=== PATIENT | female | born 1940 | race Caucasian/White ===

== ENCOUNTER → 2016-10-21 | Outpatient (CLI) | payer OTHER ==
[~2016-10-21] MED LIST: AMOX875T PO; ASPEC81 PO; ASPI-589 PO; ATOR-24 PO; CHOL100027 PO; CITA40TA4 PO; DIGO0.2576 PO; LEVO88TA3 PO; LNX25 PO; LORA-741 PO; LPT40 PO; LSN20 PO; LSX40 PO; LVQ750 PO; LXP/20 PO; METO-551 PO; METO100T14 PO; POTA-327 PO; POTA20TA13 PO; POTA20TA16 PO; PROB1CAP6; SACC250C3 PO; SULF800T23 PO; TOLT1CAP3 PO; WARF-246 PO; WARF-285 PO; WARF4TAB8 PO
[2016-10-21 17:48] LABS: INR 1.8 (0.9-1.1); PROTHROMBIN TIME (PATIENT) 19.4 SECONDS (9.0-12.0)
[2016-10-21 17:57] LABS: THYROID STIMULATING HORMONE 0.797 uIu/ml (0.300-4.500)
[2016-10-21 18:07] LABS: BASO % 0.3 %; BASO ABS # 0.02 K/uL (0-0.2); COMPLETE YES; EOS % 2.5 %; HEMATOCRIT 43.5 % (37-47); IG% 0.3 %; LYMPH % 17.2 %; LYMPH ABS # 1.23 K/uL (1.2-3.4); MEAN CELL VOLUME 96.7 fL (80-100); MEAN CORPUSCULAR HEMOGLOBIN 32.7 pg (25-34); MEAN CORPUSCULAR HGB CONC 33.8 g/dl (32-36); MEAN PLATELET VOLUME 10.8 fL (7.4-10.4); MONO % 6.6 %; NEUT % 73.1 %; PLATELET COUNT 148 K/uL (130-400); WHITE BLOOD COUNT 7.16 K/uL (4.8-10.8)
== END | disposition home or self-care (01) ==
LOC: C.LABMFLN 12:11
PROVIDERS: ATTEND Family Medicine
DX: I48.91 Unspecified atrial fibrillation (principal); I10 Essential (primary) hypertension; E03.9 Hypothyroidism, unspecified; E78.5 Hyperlipidemia, unspecified; K92.1 Melena

== ENCOUNTER → 2016-10-24 | Outpatient (CLI) | payer OTHER ==
[2016-10-24 18:50] LABS: URINE APPEARANCE CLEAR (CLEAR); URINE BILIRUBIN NEG (NEG); URINE COLOR YELLOW; URINE NITRITE NEG (NEG); URINE SPECIFIC GRAVITY 1.006 (1.000-1.030); UROBILINOGEN NEG (NEG)
[2016-10-24 18:55] LABS: MANUAL MICROSCOPIC REQUIRED? NO; REVIEW REQ? NO
== END | disposition home or self-care (01) ==
LOC: C.LABMFLN 11:12
PROVIDERS: ATTEND Family Medicine
DX: N39.0 Urinary tract infection, site not specified (principal)

== ENCOUNTER → 2016-11-25 | Outpatient (CLI) | payer OTHER ==
[~2016-11-25] MED LIST changes: +DOXY100C76 PO
[2016-11-25 13:16] LABS: BASO % 0.6 %; BASO ABS # 0.04 K/uL (0-0.2); COMPLETE YES; EOS % 4.7 %; IG% 0.3 %; LYMPH ABS # 1.97 K/uL (1.2-3.4); MEAN CELL VOLUME 96.6 fL (80-100); MEAN CORPUSCULAR HEMOGLOBIN 32.8 pg (25-34); MEAN PLATELET VOLUME 10.8 fL (7.4-10.4); MONO % 8.1 %; NEUT % 56.3 %; PLATELET COUNT 169 K/uL (130-400); RED BLOOD COUNT 4.66 M/uL (4.2-5.4); WHITE BLOOD COUNT 6.57 K/uL (4.8-10.8)
[2016-11-25 13:17] LABS: BLOOD UREA NITROGEN 23 mg/dl (7-18); BUN/CREATININE RATIO 17.5 (10-20); CALCIUM 9.2 mg/dl (8.5-10.1); CARBON DIOXIDE 29 mmol/L (21-32); CHLORIDE 104 mmol/L (98-107); GLUCOSE 102 mg/dl (70-99); MAGNESIUM 2.2 mg/dl (1.8-2.4); POTASSIUM 3.8 mmol/L (3.5-5.1); SODIUM 142 mmol/L (136-145)
== END | disposition home or self-care (01) ==
LOC: C.LABMFLN 11:59
PROVIDERS: ATTEND Family Medicine
DX: D68.59 Other primary thrombophilia (principal)

== ENCOUNTER 2017-02-24 12:36 | Inpatient (IN) | payer OTHER ==
[~2017-02-24] VITALS: Ht 165.1 cm; Wt 105.5 kg
[~2017-02-24 12:36] MED LIST changes: -AMOX875T PO; -ASPI-589 PO; -ATOR-24 PO; -CHOL100027 PO; -DOXY100C76 PO; -LNX25 PO; -LVQ750 PO; -LXP/20 PO; -METO-551 PO; -POTA20TA13 PO; -POTA20TA16 PO; -PROB1CAP6; -SACC250C3 PO; -SULF800T23 PO; -WARF-285 PO; -WARF4TAB8 PO
[2017-02-24] MEDS ORDERED: METO-551 PO (13:49)
[2017-02-24] MEDS ORDERED: CHOL100027 PO (13:49)
[2017-02-24] MEDS ORDERED: LNX25 PO (13:49)
[2017-02-24] MEDS ORDERED: POTA20TA13 PO (13:49)
[2017-02-24 14:14] LABS: BASO % 0.1 %; BASO ABS # 0.01 K/uL (0-0.2); COMPLETE YES; EOS % 0.6 %; HEMATOCRIT 32.9 % (37-47); IG% 0.4 %; LYMPH % 11.2 %; LYMPH ABS # 1.25 K/uL (1.2-3.4); MEAN CELL VOLUME 97.1 fL (80-100); MEAN CORPUSCULAR HEMOGLOBIN 30.7 pg (25-34); MEAN CORPUSCULAR HGB CONC 31.6 g/dl (32-36); MEAN PLATELET VOLUME 8.5 fL (7.4-10.4); MONO % 6.6 %; NEUT % 81.1 %; PLATELET COUNT 315 K/uL (130-400); RED BLOOD COUNT 3.39 M/uL (4.2-5.4); WHITE BLOOD COUNT 11.12 K/uL (4.8-10.8)
[2017-02-24] MEDS ORDERED: AMPICILLIN/SULBACTAM SOD INJ 3,000 MG in SODIUM CHLORIDE 0.9% 100ML 100 ML IV ONE (14:15)
[2017-02-24 14:32] LABS: BUN/CREATININE RATIO 11.6 (10-20); CALCIUM 8.5 mg/dl (8.5-10.1); CREATININE 1.1 mg/dl (0.60-1.20); POTASSIUM 4.4 mmol/L (3.5-5.1)
[2017-02-24 14:48] LABS: INR 2.7 (0.9-1.1); PARTIAL THROMBOPLASTIN RATIO 1.7; PROTHROMBIN TIME (PATIENT) 30.3 SECONDS (9.0-12.0)
--- NOTE | 2017-02-24 16:16 | Surgery Consultation ---
Consultation Date of Consultation: Feb 24, 2017. Attending Physician: History of Present Illness patient is a 76 years old female who presents with one day history of redness on right leg, pt had lovenox injection on abdominal wall by her 4 weeks ago, she develops hemotoma and later she got abdominal wall infection, pt had abdominal wall infection I/D at [facility] 4 weeks ago, pt was putted on wound vac. pt had pacemaker insertion 2 weeks ago, pt denies fever, no chills, pt denies diarrhea, Family History Cancer Diabetes mellitus Heart disease Hypertension Social History Smoking Status: Never Smoker Smokeless Tobacco Use: No Alcohol Use: occasionally Drug Use: none Marital Status: Housing Status: lives with family Occupation Status: retired Allergies Coded Allergies: Oxytetracycline (Verified Allergy, Intermediate, "felt like a big ball in my stomach", 02/24/17) Polymyxin B (Verified Allergy, Intermediate, "felt like a big ball in my stomach", 02/24/17) Home Medications Scheduled Aspirin (Aspirin EC Low Dose), 81 MG PO QAM Atorvastatin (Atorvastatin Calcium), 80 MG PO QAM Cholecalciferol (Vitamin D 1000 Unit), 1,000 INTER.UNIT PO DAILY Citalopram (Citalopram Hydrobromide), 20 MG PO DAILY Digoxin (Digoxin), 1 TAB PO DAILY Levothyroxine Sodium (Levothyroxine Sodium), 88 MCG PO DAILY Lisinopril (Lisinopril), 20 MG PO DAILY Metoprolol Tartrate (Lopressor), 50 MG PO BID Potassium Chloride Microencaps (Potassium Chloride Er), 1 TAB PO DAILY Tolterodine Tartrate (Tolterodine Tartrate ER), 4 MG PO DAILY Warfarin Sodium (Warfarin Sodium), 2.5-5 MG PO daily as directed Scheduled PRN Lorazepam (Ativan), 0.5 MG PO TID PRN for as needed Review of Systems Constitutional: No fever, No chills, No sweats, No weight loss, No weakness, No fatigue, No problem reported Eyes: No worsening of vision, No eye pain, No redness, No discharge, No diplopia, No problem reported ENT: No hearing loss, No unusual epistaxis, No nasal symptoms, No sore throat, No tinnitus, No dental problems, No trouble swallowing, No problem reported Respiratory: + problem reported (PE history), No cough, No sputum, No wheezing , No shortness of breath, No dyspnea on exertion, No dyspnea at rest, No hemoptysis Cardiovascular: + problem reported (pacemaker insertion 2 weeks ago, BCEA), No chest pain, No orthopnea, No PND, No edema, No claudication, No palpitations Abdomen: No pain, No nausea, No vomiting, No diarrhea, No constipation, No GI bleeding, No problem reported Genitourinary - Female: No dysuria, No urinary frequency, No urinary urgency, No urinary incontinence, No urinary retention, No hematuria, No dysmenorrhea, No menorrhagia, No metrorrhagia, No rash, No vaginal bleeding, No vaginal discharge, No vaginal itching, No vulvodynia, No , No problem reported Neurologic: No memory loss, No paralysis, No weakness, No numbness/tingling, No vertigo, No balance problems, No problem reported Psychiatric: No depression symptoms, No anhedonism, No anxiety, No insomnia, No substance abuse, No problem reported Endocrine: No fatigue, No excessive thirst, No excessive urination, No problem reported Hematologic / Lymphatic: + clotting problems (DVT on left leg, and PE) Physical Exam Date Time Temp Pulse Resp B/P (MAP) Pulse Ox O2 Delivery O2 Flow Rate FiO2 02/24/17 15:09 86 20 146/82 100 Room Air 02/24/17 13:19 70 20 97/63 93 Room Air 02/24/17 13:06 67 18 108/52 92 Room Air 02/24/17 12:57 37.3 78 16 96/62 94 Room Air 02/24/17 12:53 75 General Appearance: WD/WN, no apparent distress Head: normocephalic Eyes: normal inspection ENT: normal ENT inspection Neck: supple, no JVD Respiratory/Chest: chest non-tender, lungs clear, normal breath sounds Cardiovascular: regular rate, rhythm, no edema, no JVD Abdomen/GI: normal bowel sounds, non tender, soft (one wound vac on right side abdominal wall, size [id number], the wound edage is clear, no redness, some redness on right upper and lower leg, posterior, no tenderness, no swelling on bilt legs, ) Extremities/Musculoskelatal: no calf tenderness, normal capillary refill, no pedal edema, normal range of motion (some redness on upper and lower right leg, posterior, ) Neurologic/Psych: no motor/sensory deficits, alert, normal mood/affect Skin: no rash (see extremities exam) Laboratory Results Last 24 Hours Test 02/24/17 14:05 White Blood Count 11.12 K/uL Red Blood Count 3.39 M/uL Hemoglobin 10.4 g/dL Hematocrit 32.9 % Mean Corpuscular Volume 97.1 fL Mean Corpuscular Hemoglobin 30.7 pg Mean Corpuscular Hemoglobin Concent 31.6 g/dl Platelet Count 315 K/uL Mean Platelet Volume 8.5 fL Neutrophils (%) (Auto) 81.1 % Lymphocytes (%) (Auto) 11.2 % Monocytes (%) (Auto) 6.6 % Eosinophils (%) (Auto) 0.6 % Basophils (%) (Auto) 0.1 % Neutrophils # (Auto) 9.01 K/uL Lymphocytes # (Auto) 1.25 K/uL Monocytes # (Auto) 0.73 K/uL Eosinophils # (Auto) 0.07 K/uL Basophils # (Auto) 0.01 K/uL RDW Standard Deviation 62.0 fL RDW Coefficient of Variation 17.5 % Immature Granulocyte % (Auto) 0.4 % Immature Granulocyte # (Auto) 0.05 K/uL Prothrombin Time 30.3 SECONDS Prothromb Time International Ratio 2.7 Activated Partial Thromboplast Time 43.6 SECONDS Partial Thromboplastin Ratio 1.7 Sodium Level 135 mmol/L Potassium Level 4.4 mmol/L Chloride Level 102 mmol/L Carbon Dioxide Level 28 mmol/L Anion Gap 5.0 mmol/L Blood Urea Nitrogen 13 mg/dl Creatinine 1.10 mg/dl Est Creatinine Clear Calc Drug Dose 52.5 ml/min Estimated GFR () 56.5 Estimated GFR (Non- 48.7 BUN/Creatinine Ratio 11.6 Random Glucose 94 mg/dl Calcium Level 8.5 mg/dl Assessment & Plan IMP: cellulitis on right leg chronic abdominal wall wound, patient is a 76 years old female who presents with one day history of redness on right leg, pt had lovenox injection on abdominal wall by her 4 weeks ago, she develops hemotoma and later she got abdominal wall infection, pt had abdominal wall infection I/D at [facility] 4 weeks ago, pt was putted on wound vac. pt had pacemaker insertion 2 weeks ago, pt denies fever, no chills, pt denies diarrhea, I agree with hospitalist admit pt to hospital, no need I/D the wound now, IV antibiotic, U/S bilt to R/O DVT, repeat labs in AM. I D/W pt and her about the treatment plan, they agree with the plan, I answered all questions. Will F/u Thanks,
--- NOTE | 2017-02-24 17:04 | EMERGENCY ROOM VISIT NOTE ---
History Report prepared by [place]: Gladis Willams Under the Supervision of: Dr. Raffy Sneed D.O. First contact with patient: 13:59 Chief Complaint: WOUND INFECTION Stated Complaint: WOUND Nursing Triage Summary: Patient with wound vac right lower abdomen area that is reddened around the wound vac dressing with wound vac making a hissing noise per family. Home health nursing typically does the wound vac changes but the family called physician today to report redness around the area and family was instructed to call EMS. Area is currently reddened approximately alf down the thigh. Patient states she really has no pain "just a soreness" rating the the soreness 4/10. Wound vac was placed due to a surgery to remove a hematoma from Lovenox injections for afib. History of Present Illness The patient is a 76 year old female who presents to the Emergency Room with complaints of right leg erythema starting today. The patient had a hematoma removal from the skin on the abdomen and a wound vac was placed. The dressing is changed 3 times a week by the home health nurse. As per family, the patient started having right leg erythema today. She was referred to the Emergency Room by her PCP. As per family, the patient also has some erythema around the wound vac site but it is unchanged. She currently rates a pain intensity of 4/10. Yesterday, the patient had a temperature of 100.2 degrees Fahrenheit. As per family, the patient has been complaining of nausea. She denies vomiting. She is not on any antibiotics. Source of History: patient Onset: today Position: leg (right) Symptom Intensity: 4/10 Quality: other (erythema) Associated Symptoms: + nausea, No vomiting Review of Systems See HPI for pertinent positives & negatives. A total of 10 systems reviewed and were otherwise negative. Past Medical & Surgical Medical Problems: (1) Atrial Fibrillation (2) Benign Hypertension (3) Carotid Artery Occlusion W O Cerebral Infarction (4) Hyperlipidemia Nec/Nos (5) Hypothyroidism Nos Family History Cancer Diabetes mellitus Heart disease Hypertension Social History Smoking Status: Never Smoker Marital Status: Housing Status: lives with family Occupation Status: retired Current/Historical Medications Scheduled Aspirin (Aspirin EC Low Dose), 81 MG PO QAM Atorvastatin (Atorvastatin Calcium), 80 MG PO QAM Cholecalciferol (Vitamin D 1000 Unit), 1,000 INTER.UNIT PO DAILY Citalopram (Citalopram Hydrobromide), 20 MG PO DAILY Digoxin (Digoxin), 1 TAB PO DAILY Levothyroxine Sodium (Levothyroxine Sodium), 88 MCG PO DAILY Lisinopril (Lisinopril), 20 MG PO DAILY Metoprolol Tartrate (Lopressor), 50 MG PO BID Potassium Chloride Microencaps (Potassium Chloride Er), 1 TAB PO DAILY Tolterodine Tartrate (Tolterodine Tartrate ER), 4 MG PO DAILY Warfarin Sodium (Warfarin Sodium), 2.5-5 MG PO daily as directed Scheduled PRN Lorazepam (Ativan), 0.5 MG PO TID PRN for as needed Allergies Coded Allergies: Oxytetracycline (Verified Allergy, Intermediate, "felt like a big ball in my stomach", 02/24/17) Polymyxin B (Verified Allergy, Intermediate, "felt like a big ball in my stomach", 02/24/17) Physical Exam Vital Signs Date Time Temp Pulse Resp B/P (MAP) Pulse Ox O2 Delivery O2 Flow Rate FiO2 02/24/17 16:40 97 18 111/94 100 Room Air 02/24/17 15:09 86 20 146/82 100 Room Air 02/24/17 13:19 70 20 97/63 93 Room Air 02/24/17 13:06 67 18 108/52 92 Room Air 02/24/17 12:57 37.3 78 16 96/62 94 Room Air 02/24/17 12:53 75 Physical Exam CONSTITUTIONAL/VITAL SIGNS: Reviewed / noted above. GENERAL: Non-toxic in appearance. INTEGUMENTARY: Warm, dry. There is increased warmth and erythema extending from the lower abdominal wound border into the right hip area extending into the right lateral thigh and right lateral calf. HEAD: Normocephalic. EYES: without scleral icterus or trauma. ENT/OROPHARYNX: clear and moist. LYMPHADENOPATHY/NECK: Is supple without lymphadenopathy or meningismus. RESPIRATORY: Lungs clear and equal. CARDIOVASCULAR: Regular rate and rhythm. GI/ABDOMEN: Soft and nontender. No organomegaly or pulsatile mass. No rebound or guarding. Normal bowel sounds. Large wound vac on the right lower abdominal region. EXTREMITIES: Warm and well perfused. BACK: No CVA tenderness. NEUROLOGICAL: Intact without focal deficits. PSYCHIATRIC: normal affect. MUSCULOSKELETAL: Normally developed with good muscle tone. Medical Decision & Procedures Laboratory Results 02/24/17 14:05 Red Blood Count 3.39, Mean Corpuscular Volume 97.1, Mean Corpuscular Hemoglobin 30.7, Mean Corpuscular Hemoglobin Concent 31.6, Mean Platelet Volume 8.5, Neutrophils (%) (Auto) 81.1, Lymphocytes (%) (Auto) 11.2, Monocytes (%) (Auto) 6.6, Eosinophils (%) (Auto) 0.6, Basophils (%) (Auto) 0.1, Neutrophils # (Auto) 9.01, Lymphocytes # (Auto) 1.25, Monocytes # (Auto) 0.73, Eosinophils # (Auto) 0.07, Basophils # (Auto) 0.01 02/24/17 14:05 Test 02/24/17 14:05 White Blood Count 11.12 K/uL (4.8-10.8) Red Blood Count 3.39 M/uL (4.2-5.4) Hemoglobin 10.4 g/dL (12.0-16.0) Hematocrit 32.9 % (37-47) Mean Corpuscular Volume 97.1 fL (80-100) Mean Corpuscular Hemoglobin 30.7 pg (25-34) Mean Corpuscular Hemoglobin Concent 31.6 g/dl (32-36) Platelet Count 315 K/uL (130-400) Mean Platelet Volume 8.5 fL (7.4-10.4) Neutrophils (%) (Auto) 81.1 % Lymphocytes (%) (Auto) 11.2 % Monocytes (%) (Auto) 6.6 % Eosinophils (%) (Auto) 0.6 % Basophils (%) (Auto) 0.1 % Neutrophils # (Auto) 9.01 K/uL (1.4-6.5) Lymphocytes # (Auto) 1.25 K/uL (1.2-3.4) Monocytes # (Auto) 0.73 K/uL (0.11-0.59) Eosinophils # (Auto) 0.07 K/uL (0-0.5) Basophils # (Auto) 0.01 K/uL (0-0.2) RDW Standard Deviation 62.0 fL (36.4-46.3) RDW Coefficient of Variation 17.5 % (11.5-14.5) Immature Granulocyte % (Auto) 0.4 % Immature Granulocyte # (Auto) 0.05 K/uL (0.00-0.02) Prothrombin Time 30.3 SECONDS (9.0-12.0) Prothromb Time International Ratio 2.7 (0.9-1.1) Activated Partial Thromboplast Time 43.6 SECONDS (21.0-31.0) Partial Thromboplastin Ratio 1.7 Anion Gap 5.0 mmol/L (3-11) Est Creatinine Clear Calc Drug Dose 52.5 ml/min Estimated GFR () 56.5 Estimated GFR (Non- 48.7 BUN/Creatinine Ratio 11.6 (10-20) Calcium Level 8.5 mg/dl (8.5-10.1) Laboratory results as stated above per my review. Medications Administered Medications (Trade) Dose Ordered Sig/Mariaelena Route Start Time Stop Time Status Last Admin Dose Admin Ampicillin Sodium/ Sulbactam Sodium 3000 mg/Sodium Chloride 108 ml @ 200 mls/hr ONE ONCE IV 02/24/17 14:15 02/24/17 14:47 DC 02/24/17 14:47 200 MLS/HR ED Course 1359: Previous medical records were reviewed. The patient was evaluated in room A12B. A complete history and physical examination was performed. 1415: Ampicillin Sodium/Sulfabactam Sodium 3000 mg/Sodium Chloride 108 ml @ 200 mls/hr IV 1509: I discussed the patient's case with Dr. Reynoso, from [facility]. 1513: On reevaluation, the patient is resting comfortably. I discussed the results and findings with the patient and her family. They verbalized agreement of the treatment plan. The patient will be evaluated for further management and care. 1515: I discussed the patient's case with Dr. Montanez, general surgeon with [facility]. Medical Decision Medication Reconciliation: I attest that I have personally reviewed the patient' s current medication list. Blood pressure Screening: Patient was found to have normal blood pressure on screening and does not require follow-up. Differential diagnosis: Etiologies such as cellulitis, abscess, MRSA infection, DVT, necrotizing fasciitis, dermatitis, drug eruption, as well as others were entertained.. This is a 76-year-old female who presents to the ED with a chief complaint of low-grade fevers over the past couple of days as well as some redness in her right thigh. The patient had a large right lower abdominal hematoma that was evacuated and a wound VAC was placed by [facility] previously. The patient has not been on antibiotics recently. She has been getting wound care by home health nursing. The home health nurse today felt the redness was new. She was sent in for evaluation. The patient has a reddened area just beginning in the lateral aspect of the abdominal wound and extending into the right lateral thigh and hip area and extends down into the right lateral knee region as well. This is warm compared to surrounding tissues and with the patient's history of low-grade fevers of less than 101 this is concerning for infection. The patient was started on Unasyn IV. She was evaluated by general surgery who does not feel any debridement is necessary. She was evaluated by the medicine service and will be admitted for further evaluation and care. Consults Time Called: 1505 Consulting Physician: Dr. Reynoso, from [facility] Returned Call: 1502 I discussed the patient's case with Dr. Reynoso, from [facility]. Additional Consults: Time Called: 1513 Consulted Physician: Dr. Montanez, general surgeon with [facility] Returned Call: 1513 Additional Comments: I discussed the patient's case with Dr. Montanez, general surgeon with [facility]. Impression Primary Impression: Cellulitis of right leg Additional Impression: Cellulitis of right thigh Scribe Attestation The scribe's documentation has been prepared under my direction and personally reviewed by me in its entirety. I confirm that the note above accurately reflects all work, treatment, procedures, and medical decision making performed by me. Departure Information Dispostion Being Evaluated By Hospitalist Referrals Jeremie Parmar M.D. (PCP) Patient Instructions My [facility] Problem Qualifiers
[2017-02-24] MEDS ORDERED: ALUMINUM/MAGNESIUM/SIMETH (MAALOX MAX) 30 ML UDC PO PRN (17:15)
[2017-02-24] MEDS ORDERED: MAGNESIUM HYDROXIDE SUSP 30 ML UDC PO PRN (17:15)
[2017-02-24] MEDS ORDERED: ZOLPIDEM TARTRATE 5 MG TAB PO PRN (17:15)
[2017-02-24] MEDS ORDERED: POLYETHYLENE (MIRALAX) 17 GM PACK PO PRN (17:15)
[2017-02-24] MEDS ORDERED: ONDANSETRON INJ 2 MG/ML 2 ML VIAL IV PRN (17:15)
[2017-02-24] MEDS ORDERED: LORAZEPAM 0.5 MG TAB PO PRN (17:15)
[2017-02-24] MEDS ORDERED: VANCOMYCIN CONSULT ACTIVE PRN (17:45)
[2017-02-24] MEDS ORDERED: AMPICILLIN/SULBACTAM CONSULT ACTIVE PRN ×2 (17:45)
--- NOTE | 2017-02-24 17:59 | Pharmacy Progress Note ---
Pharmacy Abx Initial Consult Date of Service Feb 24, 2017. Pharmacy Dosing Scope Date of Consult: 02/24/17 Consultation requested by: Dr. Reynoso Pharmacy is consulted to initiate Vancomycin IV dosing therapy, order appropriate labs and adjust drug dose/frequency. Subjective The patient is a 76 year old female admitted on 02/24/17 with cellulitis of R lower extremity. Objective Height (Feet): 5 Height (Inches): 5.00 Weight (Kilograms): 105.500 Vital Signs (Past 12Hrs) Vital Signs Past 12 Hours Date Time Temp Pulse Resp B/P (MAP) Pulse Ox O2 Delivery O2 Flow Rate FiO2 02/24/17 16:40 97 18 111/94 100 Room Air 02/24/17 15:09 86 20 146/82 100 Room Air 02/24/17 13:19 70 20 97/63 93 Room Air 02/24/17 13:06 67 18 108/52 92 Room Air 02/24/17 12:57 37.3 78 16 96/62 94 Room Air 02/24/17 12:53 75 Lab Results (24Hrs) Laboratory Tests (24 Hours) Test 02/24/17 14:05 White Blood Count 11.12 K/uL (4.8-10.8) H Red Blood Count 3.39 M/uL (4.2-5.4) L Hemoglobin 10.4 g/dL (12.0-16.0) L Hematocrit 32.9 % (37-47) L Mean Corpuscular Volume 97.1 fL (80-100) Mean Corpuscular Hemoglobin 30.7 pg (25-34) Mean Corpuscular Hemoglobin Concent 31.6 g/dl (32-36) L Platelet Count 315 K/uL (130-400) Mean Platelet Volume 8.5 fL (7.4-10.4) Neutrophils (%) (Auto) 81.1 % Lymphocytes (%) (Auto) 11.2 % Monocytes (%) (Auto) 6.6 % Eosinophils (%) (Auto) 0.6 % Basophils (%) (Auto) 0.1 % Neutrophils # (Auto) 9.01 K/uL (1.4-6.5) H Lymphocytes # (Auto) 1.25 K/uL (1.2-3.4) Monocytes # (Auto) 0.73 K/uL (0.11-0.59) H Eosinophils # (Auto) 0.07 K/uL (0-0.5) Basophils # (Auto) 0.01 K/uL (0-0.2) Assessment & Plan Assessment 76 year old female admitted with cellulitis of R lower extremity. Patient has chronic abdominal wound with home wound vac. Plan Vancomycin IV * Loading dose: 2650 mg (25 mg/kg) * Maintenance dose: 1500 mg IV (14 mg/kg) every 16 hours * Goal trough level for cellulitis: ~15 mcg/mL * Trough level ordered for 02/26/17 @1930 prior to the 1999 * Patient is at risk for drug accumulation given BMI >35; however, she's borderline over at 38. The likelihood of drug accumulation in the first 48 hours is lower, so I will dose her regularly and we may need to back off dosing in the next 48-72 hours after first level obtained. Unasyn IV * 3 g IV every 6 hours is appropriate * No renal adjustment for CrCl >30 mL/min Pharmacy will continue to follow and will adjust dose/frequency as necessary. Thank you.
--- NOTE | 2017-02-24 18:08 | History and Physical ---
History & Physical Date & Time of Service: Feb 24, 2017 at 17:43 Chief Complaint: WOUND Primary Care Physician: Jeremie Parmar M.D. History of Present Illness Source: patient, family 76 y/o F Hx HTN, HPL, chronic AF on Coumadin, multiple DVTs, PVD, carotid disease, morbidly obese. Recently, the pt was admitted to [place] to undergo a colonoscopy. She is highly prone to clot formation and was admitted for bridging on Lovenox prior to the procedure. She developed a large hematoma at the injection site which became infected and required debridement and placement of a wound vac. Approximately 2 weeks ago she had a pacemaker placed in her R chest. She has been recovering slowly and today noted that she had developed erythema, warmth and pain of her skin extending from her abdominal wound over her R thigh. She may have had a fever one day prior. The pt is a very poor historian and the majority of information is gathered from family at bedside. When asked if she had any additional complaints, she stated that she thinks she might be short of breath. She has not had CP, a cough, N/V, diarrhea or dysuria. She was evaluated by the surgeon in the ER. Past Medical/Surgical History 1) AF 2) Multiple DVTs 3) Morbidly obese 4) Carotid stenosis - R CEA 5) Hypothyroidism 6) HPL 7) HTN 8) Necrotizing cellulitis at site of Lovenox injections 9) Pacemaker placement Surgical Hysterectomy, Appendectomy, Pacer placement, wound I&D and wound vac placement. Family History Cancer Diabetes mellitus Heart disease Hypertension Social History Smoking Status: Never Smoker Smokeless Tobacco Use: No Alcohol Use: occasionally Drug Use: none Marital Status: Occupational Status: retired Allergies Coded Allergies: Oxytetracycline (Verified Allergy, Intermediate, "felt like a big ball in my stomach", 02/24/17) Polymyxin B (Verified Allergy, Intermediate, "felt like a big ball in my stomach", 02/24/17) Home Medications Scheduled Aspirin (Aspirin EC Low Dose), 81 MG PO QAM Atorvastatin (Atorvastatin Calcium), 80 MG PO QAM Cholecalciferol (Vitamin D 1000 Unit), 1,000 INTER.UNIT PO DAILY Citalopram (Citalopram Hydrobromide), 20 MG PO DAILY Digoxin (Digoxin), 1 TAB PO DAILY Levothyroxine Sodium (Levothyroxine Sodium), 88 MCG PO DAILY Lisinopril (Lisinopril), 20 MG PO DAILY Metoprolol Tartrate (Lopressor), 50 MG PO BID Potassium Chloride Microencaps (Potassium Chloride Er), 1 TAB PO DAILY Tolterodine Tartrate (Tolterodine Tartrate ER), 4 MG PO DAILY Warfarin Sodium (Warfarin Sodium), 2.5-5 MG PO daily as directed Scheduled PRN Lorazepam (Ativan), 0.5 MG PO TID PRN for as needed Review of Systems Constitutional: + fever, No chills, No sweats Eyes: No worsening of vision ENT: No hearing loss, No unusual epistaxis, No nasal symptoms Respiratory: + shortness of breath, + dyspnea on exertion, + dyspnea at rest, No cough, No sputum, No wheezing Cardiovascular: + edema, No chest pain, No orthopnea, No PND Abdomen: + nausea, No pain, No vomiting Musculoskeletal: No joint pain Genitourinary - Female: No dysuria, No urinary frequency, No urinary urgency Neurologic: + weakness, No memory loss Psychiatric: No depression symptoms Endocrine: + fatigue Hematologic / Lymphatic: + clotting problems (chronic - undetermined etiology) , No abnormal bleeding/bruising Integumentary: No rash Allergic / Immunologic: No environmental allergies Physical Exam Vital Signs Date Time Temp Pulse Resp B/P (MAP) Pulse Ox O2 Delivery O2 Flow Rate FiO2 02/24/17 16:40 97 18 111/94 100 Room Air 02/24/17 15:09 86 20 146/82 100 Room Air 02/24/17 13:19 70 20 97/63 93 Room Air 02/24/17 13:06 67 18 108/52 92 Room Air 02/24/17 12:57 37.3 78 16 96/62 94 Room Air 02/24/17 12:53 75 General Appearance: WD/WN, no apparent distress, + pertinent finding (Morbidly obese alderly female in no distress) Head: normocephalic Eyes: normal inspection, EOMI ENT: normal ENT inspection, pharynx normal Neck: supple, no JVD, + pertinent finding (exa) Respiratory/Chest: chest non-tender, lungs clear, normal breath sounds, + pertinent finding (Pacer with stitches R chest - no induration) Cardiovascular: no JVD, + systolic murmur, + irregularly irregular Abdomen/GI: normal bowel sounds, non tender, soft, + pertinent finding (Very large cratered wound R lower abdominal wall with wound vac - margins are pink and clean - there is cellulitis extending from the R lower margin over the thigh and down to the R knee laterally) Back: normal inspection, no CVA tenderness Extremities/Musculoskelatal: normal inspection, normal capillary refill, + pedal edema 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, no motor/sensory deficits, alert, normal mood/affect, normal reflexes Skin: + pertinent finding (Very large cratered wound R lower abdominal wall with wound vac - margins are pink and clean - there is cellulitis extending from the R lower margin over the thigh and down to the R knee laterally) Diagnostics Laboratory Results Results Past 24 Hours Test 02/24/17 14:05 Range/Units White Blood Count 11.12 4.8-10.8 K/uL Red Blood Count 3.39 4.2-5.4 M/uL Hemoglobin 10.4 12.0-16.0 g/dL Hematocrit 32.9 37-47 % Mean Corpuscular Volume 97.1 80-100 fL Mean Corpuscular Hemoglobin 30.7 25-34 pg Mean Corpuscular Hemoglobin Concent 31.6 32-36 g/dl Platelet Count 315 130-400 K/uL Mean Platelet Volume 8.5 7.4-10.4 fL Neutrophils (%) (Auto) 81.1 % Lymphocytes (%) (Auto) 11.2 % Monocytes (%) (Auto) 6.6 % Eosinophils (%) (Auto) 0.6 % Basophils (%) (Auto) 0.1 % Neutrophils # (Auto) 9.01 1.4-6.5 K/uL Lymphocytes # (Auto) 1.25 1.2-3.4 K/uL Monocytes # (Auto) 0.73 0.11-0.59 K/uL Eosinophils # (Auto) 0.07 0-0.5 K/uL Basophils # (Auto) 0.01 0-0.2 K/uL RDW Standard Deviation 62.0 36.4-46.3 fL RDW Coefficient of Variation 17.5 11.5-14.5 % Immature Granulocyte % (Auto) 0.4 % Immature Granulocyte # (Auto) 0.05 0.00-0.02 K/uL Prothrombin Time 30.3 9.0-12.0 SECONDS Prothromb Time International Ratio 2.7 0.9-1.1 Activated Partial Thromboplast Time 43.6 21.0-31.0 SECONDS Partial Thromboplastin Ratio 1.7 Sodium Level 135 136-145 mmol/L Potassium Level 4.4 3.5-5.1 mmol/L Chloride Level 102 98-107 mmol/L Carbon Dioxide Level 28 21-32 mmol/L Anion Gap 5.0 3-11 mmol/L Blood Urea Nitrogen 13 7-18 mg/dl Creatinine 1.10 0.60-1.20 mg/dl Est Creatinine Clear Calc Drug Dose 52.5 ml/min Estimated GFR () 56.5 Estimated GFR (Non- 48.7 BUN/Creatinine Ratio 11.6 10-20 Random Glucose 94 70-99 mg/dl Calcium Level 8.5 8.5-10.1 mg/dl EKG EKG pending Impression Assessment and Plan 76 y/o F Hx HTN, HPL, chronic AF on Coumadin, multiple DVTs, PVD, carotid disease, morbidly obese. Recently, the pt was admitted to [place] to undergo a colonoscopy. She is highly prone to clot formation and was admitted for bridging on Lovenox prior to the procedure. She developed a large hematoma at the injection site which became infected and required debridement and placement of a wound vac - today noted that she had developed erythema, warmth and pain of her skin extending from her abdominal wound over her R thigh. She may have had a fever one day prior. When asked if she had any additional complaints, she stated that she thinks she might be short of breath. She has not had CP, a cough, N/V, diarrhea or dysuria. 1) Cellulitis - Pt placed on Vanc and Unasyn - area of new inflammation delineated with skin marker - would not hesitate to expand coverage if she has a fever or extension. She was evaluated by the surgeon in the ER. Will consult wound care as she stated the vac may be leaking 2) AF - recent pacer placement - rate is controlled - cont B salud, dig - INR is therapeutic on Coumadin. 3) Multiple DVTs - needs bridging if Coumadin is held for procedure - INR currently therapeutic 4) Hypothyroidism - cont Synthroid 5) CAD - no evidence of ACS - cont Statin, ASA, Bblocker 6) C/O SOB - no hypoxia or evidence of acte process - may have a degree of obesity hypoventilation - will place on 02 protocol and PM oximetry Ful code - Coumadin prophylaxis - total time for this admit including review of labs, meds, records - discussion with pt, family, ER attending - 38 min Level of Care Med/Surg Resuscitation Status FULL RESUSCITATION VTE Prophylaxis VTE Risk Assessment Done? Y/N: Yes Risk Level: High Given or contraindicated: Warfarin (Coumadin)
[2017-02-24 18:45] VITALS: Ht 165.1 cm; Wt 105.5 kg
[2017-02-24 18:59] VITALS: BP 136/81; PULSE 103; TEMP 39.3; O2SAT 92
[2017-02-24] MEDS ORDERED: VANCOMYCIN INJ 2,650 MG in SODIUM CHLORIDE 0.9% 500ML 500 ML IV ONE (19:00)
[2017-02-24] MEDS: WARFARIN SOD 3 MG TAB PO SCH (19:31)
[2017-02-24] MEDS: METOPROLOL TARTRATE 50 MG TAB PO SCH (21:00)
[2017-02-24 21:58] VITALS: BP 92/60; PULSE 126; TEMP 39.3; O2SAT 86
[2017-02-24] MEDS ORDERED: AMPICILLIN/SULBACTAM SOD INJ 3,000 MG in SODIUM CHLORIDE 0.9% 100ML 100 ML IV SCH (22:00)
[2017-02-24] MEDS: ACETAMINOPHEN 325 MG TAB PO PRN (22:00)
[2017-02-24] MEDS ORDERED: PIPERACILL/TAZOBAC IV 3.375 GM in DEXTROSE 5% 100ML 100 ML IV ONE (22:26)
[2017-02-24] MEDS ORDERED: SODIUM CHLORIDE 0.9% 1000ML 1,000 ML IV SCH (22:30)
[2017-02-24] MEDS ORDERED: PIPERACILL/TAZOBAC IV 4.5 GM in DEXTROSE 5% 100ML IV STA (22:31)
[2017-02-24] MEDS ORDERED: PIPERACILL/TAZOBAC CONSULT ACTIVE PRN (22:45)
[2017-02-24 22:59] VITALS: BP 109/68; PULSE 117; TEMP 37.2; O2SAT 96
[2017-02-25] VITALS (8 sets, daily range): BP systolic 92–126; BP diastolic 56–75; PULSE 67–103; TEMP 36.7–37.3; O2SAT 93–95
[2017-02-25] MEDS: PIPERACILL/TAZOBAC IV 4.5 GM in DEXTROSE 5% 100ML IV SCH ×3 (03:41→20:07)
[2017-02-25] MEDS: LEVOTHYROXINE 88 MCG TAB PO SCH (05:54)
[2017-02-25] MEDS ORDERED: PIPERACILL/TAZOBAC IV 3.375 GM in DEXTROSE 5% 100ML 100 ML IV SCH (06:00)
[2017-02-25] MEDS ORDERED: OXYCODONE HCL IR 5 MG TAB (IMMEDIATE RELEASE) ONE (06:20)
[2017-02-25] MEDS ORDERED: OXYCODONE HCL IR 5 MG TAB (IMMEDIATE RELEASE) PO STA (06:25)
[2017-02-25] MEDS ORDERED: NURSING VERBAL MED ORDER ONE (06:30)
[2017-02-25 07:29] LABS: BASO % 0.2 %; BASO ABS # 0.02 K/uL (0-0.2); COMPLETE YES; EOS % 1.2 %; HEMATOCRIT 31.2 % (37-47); IG% 0.4 %; LYMPH ABS # 1.21 K/uL (1.2-3.4); MEAN CELL VOLUME 98.7 fL (80-100); MEAN CORPUSCULAR HEMOGLOBIN 30.7 pg (25-34); MEAN CORPUSCULAR HGB CONC 31.1 g/dl (32-36); MEAN PLATELET VOLUME 8.9 fL (7.4-10.4); NEUT % 81.2 %; PLATELET COUNT 303 K/uL (130-400); RED BLOOD COUNT 3.16 M/uL (4.2-5.4); WHITE BLOOD COUNT 10.99 K/uL (4.8-10.8)
[2017-02-25 07:57] LABS: PROTHROMBIN TIME (PATIENT) 33.8 SECONDS (9.0-12.0)
[2017-02-25] MEDS ORDERED: PNEUMOCOCCAL POLYSACCHARIDES 25 MCG/0.5 ML VIAL/SYR IM. ONE (08:00)
[2017-02-25] MEDS ORDERED: PNEUMOCOCCAL ADMINISTRATION CHARGE ONE (08:00)
--- NOTE | 2017-02-25 08:00 | Surgery Progress Note ---
Surgery Progress Note Date of Service Feb 25, 2017. Subjective + feeling well pt is doing better, pt denies pain on right leg, less redness on right leg, the abdominal wound is dry, no necrotic tissue, Objective Vital Signs: Date Time Temp Pulse Resp B/P (MAP) Pulse Ox O2 Delivery O2 Flow Rate FiO2 02/25/17 06:54 36.9 82 16 117/75 (89) 94 Room Air 02/25/17 03:53 36.7 81 18 103/62 (76) 93 Room Air 02/25/17 00:21 85 117/70 (86) 93 Room Air 02/25/17 00:10 Room Air 02/24/17 22:59 37.2 117 15 109/68 (82) 96 Nasal Cannula 2.0 02/24/17 21:58 39.3 126 18 92/60 (71) 86 Room Air 02/24/17 18:59 39.3 103 18 136/81 (99) 92 Room Air 02/24/17 18:45 Room Air 02/24/17 18:45 Room Air 02/24/17 18:33 99 20 128/74 100 Room Air 02/24/17 16:40 97 18 111/94 100 Room Air 02/24/17 15:09 86 20 146/82 100 Room Air 02/24/17 13:19 70 20 97/63 93 Room Air 02/24/17 13:06 67 18 108/52 92 Room Air 02/24/17 12:57 37.3 78 16 96/62 94 Room Air 02/24/17 12:53 75 General Appearance: WD/WN Head: normocephalic Neck: supple, no JVD Respiratory/Chest: chest non-tender, lungs clear Cardiovascular: regular rate, rhythm, no edema, no JVD Abdomen: normal bowel sounds, non tender, non distended, soft (the abdominal wound is triangle size, the wound is fresh, ) Incision(s): clean, dry, no drainage Extremities: normal range of motion, non-tender, normal inspection (the redness on right leg is much less, ) Laboratory Results: Results Past 24 Hours Test 02/24/17 14:05 02/24/17 20:22 02/24/17 22:47 02/25/17 06:55 Range/Units White Blood Count 11.12 10.99 4.8-10.8 K/uL Red Blood Count 3.39 3.16 4.2-5.4 M/uL Hemoglobin 10.4 9.7 12.0-16.0 g/dL Hematocrit 32.9 31.2 37-47 % Mean Corpuscular Volume 97.1 98.7 80-100 fL Mean Corpuscular Hemoglobin 30.7 30.7 25-34 pg Mean Corpuscular Hemoglobin Concent 31.6 31.1 32-36 g/dl Platelet Count 315 303 130-400 K/uL Mean Platelet Volume 8.5 8.9 7.4-10.4 fL Neutrophils (%) (Auto) 81.1 81.2 % Lymphocytes (%) (Auto) 11.2 11.0 % Monocytes (%) (Auto) 6.6 6.0 % Eosinophils (%) (Auto) 0.6 1.2 % Basophils (%) (Auto) 0.1 0.2 % Neutrophils # (Auto) 9.01 8.93 1.4-6.5 K/uL Lymphocytes # (Auto) 1.25 1.21 1.2-3.4 K/uL Monocytes # (Auto) 0.73 0.66 0.11-0.59 K/uL Eosinophils # (Auto) 0.07 0.13 0-0.5 K/uL Basophils # (Auto) 0.01 0.02 0-0.2 K/uL RDW Standard Deviation 62.0 62.5 36.4-46.3 fL RDW Coefficient of Variation 17.5 17.3 11.5-14.5 % Immature Granulocyte % (Auto) 0.4 0.4 % Immature Granulocyte # (Auto) 0.05 0.04 0.00-0.02 K/uL Prothrombin Time 30.3 9.0-12.0 SECONDS Prothromb Time International Ratio 2.7 0.9-1.1 Activated Partial Thromboplast Time 43.6 21.0-31.0 SECONDS Partial Thromboplastin Ratio 1.7 Sodium Level 135 136-145 mmol/L Potassium Level 4.4 3.5-5.1 mmol/L Chloride Level 102 98-107 mmol/L Carbon Dioxide Level 28 21-32 mmol/L Anion Gap 5.0 3-11 mmol/L Blood Urea Nitrogen 13 7-18 mg/dl Creatinine 1.10 0.60-1.20 mg/dl Est Creatinine Clear Calc Drug Dose 52.5 ml/min Estimated GFR () 56.5 Estimated GFR (Non- 48.7 BUN/Creatinine Ratio 11.6 10-20 Random Glucose 94 70-99 mg/dl Calcium Level 8.5 8.5-10.1 mg/dl Bedside Glucose 114 70-90 mg/dl Lactic Acid Level 0.9 0.4-2.0 mmol/L Microbiology Results 02/24/17 Blood Culture, Received Pending 02/24/17 Blood Culture, Received Pending Assessment & Plan F/U cellulitis on right leg , and abdominal wall wound, pt is doing better, continue IV antibiotic, Will F/U,
[2017-02-25 08:11] LABS: BUN/CREATININE RATIO 11.7 (10-20); CREATININE 1.1 mg/dl (0.60-1.20); POTASSIUM 3.9 mmol/L (3.5-5.1)
[2017-02-25 08:14] LABS: ALB/GLOB RATIO 0.4 (0.9-2)
[2017-02-25] MEDS: METOPROLOL TARTRATE 50 MG TAB PO SCH ×2 (09:00→20:08)
[2017-02-25] MEDS: CHOLECALCIFEROL 1000 INTER.UNIT TAB PO SCH (09:07)
[2017-02-25] MEDS: CITALOPRAM 20 MG TAB PO SCH (09:08)
[2017-02-25] MEDS: TOLTERODINE TARTRATE LA 4 MG CAPCR PO SCH (09:08)
[2017-02-25] MEDS: POTASSIUM CHLORIDE 20 MEQ TABCR PO SCH (09:10)
[2017-02-25] MEDS: LISINOPRIL 20 MG TAB PO SCH ×2 (09:10→13:13)
[2017-02-25] MEDS: ATORVASTATIN 40 MG TAB PO SCH (09:11)
[2017-02-25] MEDS: ASPIRIN 81 MG ECTAB PO SCH (09:11)
--- NOTE | 2017-02-25 11:33 | DIAGNOSTIC IMAGING REPORT ---
VENOUS DOPPLER LW EXT BILAT HISTORY: Pain. Edema. rule out DVT COMPARISON STUDY: None. FINDINGS: There is normal compressibility, flow, and augmentation within the bilateral lower extremity deep venous systems. IMPRESSION: No DVT within the right or left lower extremity. The above report was generated using voice recognition software. It may contain grammatical, syntax or spelling errors. Electronically signed by: Gilmer Frausto M.D. 02/25/2017 11:32 AM Dictated Date/Time: 02/25/2017 11:31 AM
[2017-02-25] MEDS: VANCOMYCIN INJ 1,500 MG in SODIUM CHLORIDE 0.9% 500ML 500 ML IV SCH (13:11)
--- NOTE | 2017-02-25 13:34 | Progress Note ---
Subjective Date of Service: Feb 25, 2017. Subjective Pt evaluation today including: conversation w/ patient, physical exam, chart review, lab review, review of studies, review of inpatient medication list Resting comfortably in bed Denies any worsening pain or redness No acute events overnight Problem List Medical Problems: (1) Cellulitis of right leg Status: Acute (2) Cellulitis of right thigh Status: Acute Review of Systems Constitutional: No fever, No chills, No sweats, No weakness Eyes: No worsening of vision, No eye pain, No redness, No discharge ENT: No hearing loss, No unusual epistaxis, No nasal symptoms, No sore throat Respiratory: No cough, No sputum, No wheezing, No shortness of breath Cardiac: No chest pain, No orthopnea, No PND, No edema, No claudication Abdomen: No pain, No nausea, No vomiting, No diarrhea, No constipation Musculoskeletal: No joint pain, No muscle pain Female : No dysuria, No urinary frequency Neurologic: No memory loss, No paralysis, No weakness, No numbness/tingling Psychiatric: No depression symptoms, No anhedonism, No anxiety, No insomnia Skin: + new/changing skin lesions, No rash, No itch Objective Vital Signs Date Time Temp Pulse Resp B/P (MAP) Pulse Ox O2 Delivery O2 Flow Rate FiO2 02/25/17 09:00 82 92/60 (71) 02/25/17 08:00 Room Air 02/25/17 06:54 36.9 82 16 117/75 (89) 94 Room Air 02/25/17 03:53 36.7 81 18 103/62 (76) 93 Room Air 02/25/17 00:21 85 117/70 (86) 93 Room Air 02/25/17 00:10 Room Air 02/24/17 22:59 37.2 117 15 109/68 (82) 96 Nasal Cannula 2.0 02/24/17 21:58 39.3 126 18 92/60 (71) 86 Room Air 02/24/17 18:59 39.3 103 18 136/81 (99) 92 Room Air 02/24/17 18:45 Room Air 02/24/17 18:45 Room Air 02/24/17 18:33 99 20 128/74 100 Room Air 02/24/17 16:40 97 18 111/94 100 Room Air 02/24/17 15:09 86 20 146/82 100 Room Air 02/24/17 13:19 70 20 97/63 93 Room Air 02/24/17 13:06 67 18 108/52 92 Room Air Physical Exam General Appearance: WD/WN, no apparent distress Eyes: normal inspection, PERRL, EOMI, sclerae normal Neck: supple, no adenopathy, thyroid normal, no JVD Respiratory/Chest: chest non-tender, lungs clear, normal breath sounds, no respiratory distress Cardiovascular: regular rate, rhythm, no edema, no gallop, no JVD Abdomen: normal bowel sounds, non tender, soft, no organomegaly Extremities: normal range of motion, non-tender, normal inspection, no pedal edema Neurologic/Psychiatric: no motor/sensory deficits, alert, normal mood/affect, oriented x 3 Skin: normal color, warm/dry, no rash, + pertinent finding (right thigh cellulitis resolving) Laboratory Results Last 24 Hours Test 02/24/17 14:05 02/24/17 20:22 02/24/17 22:47 02/25/17 06:55 White Blood Count 11.12 K/uL 10.99 K/uL Red Blood Count 3.39 M/uL 3.16 M/uL Hemoglobin 10.4 g/dL 9.7 g/dL Hematocrit 32.9 % 31.2 % Mean Corpuscular Volume 97.1 fL 98.7 fL Mean Corpuscular Hemoglobin 30.7 pg 30.7 pg Mean Corpuscular Hemoglobin Concent 31.6 g/dl 31.1 g/dl Platelet Count 315 K/uL 303 K/uL Mean Platelet Volume 8.5 fL 8.9 fL Neutrophils (%) (Auto) 81.1 % 81.2 % Lymphocytes (%) (Auto) 11.2 % 11.0 % Monocytes (%) (Auto) 6.6 % 6.0 % Eosinophils (%) (Auto) 0.6 % 1.2 % Basophils (%) (Auto) 0.1 % 0.2 % Neutrophils # (Auto) 9.01 K/uL 8.93 K/uL Lymphocytes # (Auto) 1.25 K/uL 1.21 K/uL Monocytes # (Auto) 0.73 K/uL 0.66 K/uL Eosinophils # (Auto) 0.07 K/uL 0.13 K/uL Basophils # (Auto) 0.01 K/uL 0.02 K/uL RDW Standard Deviation 62.0 fL 62.5 fL RDW Coefficient of Variation 17.5 % 17.3 % Immature Granulocyte % (Auto) 0.4 % 0.4 % Immature Granulocyte # (Auto) 0.05 K/uL 0.04 K/uL Prothrombin Time 30.3 SECONDS 33.8 SECONDS Prothromb Time International Ratio 2.7 3.0 Activated Partial Thromboplast Time 43.6 SECONDS Partial Thromboplastin Ratio 1.7 Sodium Level 135 mmol/L 136 mmol/L Potassium Level 4.4 mmol/L 3.9 mmol/L Chloride Level 102 mmol/L 103 mmol/L Carbon Dioxide Level 28 mmol/L 27 mmol/L Anion Gap 5.0 mmol/L 6.0 mmol/L Blood Urea Nitrogen 13 mg/dl 13 mg/dl Creatinine 1.10 mg/dl 1.10 mg/dl Est Creatinine Clear Calc Drug Dose 52.5 ml/min 52.5 ml/min Estimated GFR () 56.5 56.5 Estimated GFR (Non- 48.7 48.7 BUN/Creatinine Ratio 11.6 11.7 Random Glucose 94 mg/dl 87 mg/dl Calcium Level 8.5 mg/dl 8.0 mg/dl Bedside Glucose 114 mg/dl Lactic Acid Level 0.9 mmol/L Total Bilirubin 0.6 mg/dl Aspartate Amino Transf (AST/SGOT) 28 U/L Alanine Aminotransferase (ALT/SGPT) 17 U/L Alkaline Phosphatase 80 U/L Total Protein 6.3 gm/dl Albumin 1.7 gm/dl Globulin 4.6 gm/dl Albumin/Globulin Ratio 0.4 Assessment and Plan 76 y/o F Hx HTN, HPL, chronic AF on Coumadin, multiple DVTs, PVD, carotid disease, morbidly obese. Recently, the pt was admitted to [place] to undergo a colonoscopy. She is highly prone to clot formation and was admitted for bridging on Lovenox prior to the procedure. She developed a large hematoma at the injection site which became infected and required debridement and placement of a wound vac - today noted that she had developed erythema, warmth and pain of her skin extending from her abdominal wound over her R thigh. She may have had a fever one day prior. Cellulitis - Improving on day #2 Vanc and Unasyn - Wound care and gen surg consulted. Conservative tx at this time. US determined no DVT AF - recent pacer placement - rate is controlled - cont B salud, dig - INR is therapeutic 3.0 on Coumadin. Multiple DVTs - needs bridging if Coumadin is held for procedure - INR currently therapeutic Hypothyroidism - cont Synthroid CAD - no evidence of ACS - cont Statin, ASA, Bblocker C/O SOB - no hypoxia or evidence of acte process - may have a degree of obesity hypoventilation - will place on 02 protocol and PM oximetry Ful code - Coumadin prophylaxis - total time for this admit including review of labs, meds, records - discussion with pt, family, ER attending - 38 min
[2017-02-25] MEDS: DIGOXIN 0.25 MG TAB PO SCH (16:38)
[2017-02-25] MEDS: WARFARIN SOD 3 MG TAB PO SCH (16:39)
[2017-02-26] MEDS: VANCOMYCIN INJ 1,500 MG in SODIUM CHLORIDE 0.9% 500ML 500 ML IV SCH (03:44)
[2017-02-26] MEDS: PIPERACILL/TAZOBAC IV 4.5 GM in DEXTROSE 5% 100ML IV SCH ×3 (03:44→19:14)
[2017-02-26] MEDS: LEVOTHYROXINE 88 MCG TAB PO SCH (05:38)
[2017-02-26 06:16] LABS: BASO % 0.3 %; BASO ABS # 0.02 K/uL (0-0.2); COMPLETE YES; EOS % 5.3 %; HEMATOCRIT 28.4 % (37-47); IG% 0.5 %; LYMPH % 16.3 %; LYMPH ABS # 1.25 K/uL (1.2-3.4); MEAN CELL VOLUME 97.9 fL (80-100); MEAN CORPUSCULAR HGB CONC 31.7 g/dl (32-36); MEAN PLATELET VOLUME 8.5 fL (7.4-10.4); MONO % 8.8 %; NEUT % 68.8 %; PLATELET COUNT 263 K/uL (130-400); WHITE BLOOD COUNT 7.69 K/uL (4.8-10.8)
[2017-02-26 06:30] LABS: PROTHROMBIN TIME (PATIENT) 50.9 SECONDS (9.0-12.0)
[2017-02-26 06:31] LABS: INR 4.5 (0.9-1.1)
[2017-02-26 07:07] VITALS: BP 92/55; PULSE 82; TEMP 36.8; O2SAT 96
[2017-02-26] MEDS: CITALOPRAM 20 MG TAB PO SCH (08:16)
[2017-02-26] MEDS: ASPIRIN 81 MG ECTAB PO SCH (08:16)
[2017-02-26] MEDS: ATORVASTATIN 40 MG TAB PO SCH (08:16)
[2017-02-26] MEDS: METOPROLOL TARTRATE 50 MG TAB PO SCH ×2 (08:16→21:56)
[2017-02-26] MEDS: POTASSIUM CHLORIDE 20 MEQ TABCR PO SCH (08:17)
[2017-02-26] MEDS: TOLTERODINE TARTRATE LA 4 MG CAPCR PO SCH (08:17)
[2017-02-26] MEDS: LISINOPRIL 20 MG TAB PO SCH (08:17)
[2017-02-26] MEDS: CHOLECALCIFEROL 1000 INTER.UNIT TAB PO SCH (08:17)
[2017-02-26 08:19] VITALS: BP 111/72; PULSE 78
--- NOTE | 2017-02-26 10:10 | Surgery Progress Note ---
Surgery Progress Note Date of Service Feb 26, 2017. Subjective + feeling well pt is doing better, less redness on right leg, the abdominal wall wound vac on , pt denies fever, no chills, Objective Vital Signs: Date Time Temp Pulse Resp B/P (MAP) Pulse Ox O2 Delivery O2 Flow Rate FiO2 02/26/17 08:19 78 111/72 (85) 02/26/17 07:50 Room Air 02/26/17 07:07 36.8 82 18 92/55 (67) 96 Room Air 02/25/17 23:00 Room Air 02/25/17 22:58 36.9 67 19 106/56 (73) 93 Room Air 02/25/17 16:55 111/70 (84) 02/25/17 16:38 79 02/25/17 16:30 Room Air 02/25/17 14:58 37.3 76 16 96/62 (73) 95 Room Air 02/25/17 12:00 103 126/73 (90) General Appearance: WD/WN Head: normocephalic Neck: supple, no JVD Respiratory/Chest: chest non-tender, lungs clear Cardiovascular: regular rate, rhythm, no edema, no gallop Abdomen: normal bowel sounds, non tender, non distended, soft (abdominal wound vac on, ) Incision(s): no drainage Extremities: normal range of motion, non-tender Laboratory Results: Results Past 24 Hours Test 02/26/17 06:03 Range/Units White Blood Count 7.69 4.8-10.8 K/uL Red Blood Count 2.90 4.2-5.4 M/uL Hemoglobin 9.0 12.0-16.0 g/dL Hematocrit 28.4 37-47 % Mean Corpuscular Volume 97.9 80-100 fL Mean Corpuscular Hemoglobin 31.0 25-34 pg Mean Corpuscular Hemoglobin Concent 31.7 32-36 g/dl Platelet Count 263 130-400 K/uL Mean Platelet Volume 8.5 7.4-10.4 fL Neutrophils (%) (Auto) 68.8 % Lymphocytes (%) (Auto) 16.3 % Monocytes (%) (Auto) 8.8 % Eosinophils (%) (Auto) 5.3 % Basophils (%) (Auto) 0.3 % Neutrophils # (Auto) 5.29 1.4-6.5 K/uL Lymphocytes # (Auto) 1.25 1.2-3.4 K/uL Monocytes # (Auto) 0.68 0.11-0.59 K/uL Eosinophils # (Auto) 0.41 0-0.5 K/uL Basophils # (Auto) 0.02 0-0.2 K/uL RDW Standard Deviation 61.5 36.4-46.3 fL RDW Coefficient of Variation 17.2 11.5-14.5 % Immature Granulocyte % (Auto) 0.5 % Immature Granulocyte # (Auto) 0.04 0.00-0.02 K/uL Prothrombin Time 50.9 9.0-12.0 SECONDS Prothromb Time International Ratio 4.5 0.9-1.1 Creatinine 1.00 0.60-1.20 mg/dl Est Creatinine Clear Calc Drug Dose 57.7 ml/min Estimated GFR () 63.4 Estimated GFR (Non- 54.7 Assessment & Plan F/U cellulitis on right leg , and abdominal wall wound, pt is doing better, continue IV antibiotic, Will F/U, 02/26/2017 pt is doing better, continue treatment, will F/U F/U cellulitis on right leg , and abdominal wall wound, pt is doing better, continue IV antibiotic, Will F/U,
[2017-02-26] MEDS: BOOST VANILLA PO SCH ×4 (11:27→17:27)
--- NOTE | 2017-02-26 12:28 | Progress Note ---
Subjective Date of Service: Feb 26, 2017. Subjective Pt evaluation today including: conversation w/ patient, physical exam, chart review, lab review, review of studies, review of inpatient medication list No fevers or chills Resting comfortably in bed No concerns noted Problem List Medical Problems: (1) Cellulitis of right leg Status: Acute (2) Cellulitis of right thigh Status: Acute Review of Systems Constitutional: No fever, No chills, No sweats, No weight loss, No weakness ENT: No hearing loss, No unusual epistaxis, No nasal symptoms, No sore throat Respiratory: No cough, No sputum, No wheezing, No shortness of breath, No dyspnea on exertion Cardiac: No chest pain, No orthopnea, No PND, No edema Abdomen: No pain, No nausea, No vomiting, No diarrhea Musculoskeletal: No joint pain, No muscle pain, No swelling, No calf pain Female : No dysuria, No urinary frequency, No hematuria, No incontinence Neurologic: No memory loss, No paralysis, No weakness, No numbness/tingling Psychiatric: No depression symptoms, No anhedonism, No anxiety, No insomnia Objective Vital Signs Date Time Temp Pulse Resp B/P (MAP) Pulse Ox O2 Delivery O2 Flow Rate FiO2 02/26/17 08:19 78 111/72 (85) 02/26/17 07:50 Room Air 02/26/17 07:07 36.8 82 18 92/55 (67) 96 Room Air 02/25/17 23:00 Room Air 02/25/17 22:58 36.9 67 19 106/56 (73) 93 Room Air 02/25/17 16:55 111/70 (84) 02/25/17 16:38 79 02/25/17 16:30 Room Air 02/25/17 14:58 37.3 76 16 96/62 (73) 95 Room Air Physical Exam General Appearance: WD/WN, no apparent distress Eyes: normal inspection, PERRL, EOMI, sclerae normal Neck: supple, no adenopathy, thyroid normal, no JVD Respiratory/Chest: chest non-tender, lungs clear, normal breath sounds, no respiratory distress Cardiovascular: no edema, no gallop, no JVD, no murmur Abdomen: normal bowel sounds, non tender, soft, no organomegaly Extremities: non-tender, no pedal edema, + pertinent finding (noted right leg cellulitis improving) Neurologic/Psychiatric: alert, normal mood/affect, oriented x 3 Laboratory Results Last 24 Hours Test 02/26/17 06:03 White Blood Count 7.69 K/uL Red Blood Count 2.90 M/uL Hemoglobin 9.0 g/dL Hematocrit 28.4 % Mean Corpuscular Volume 97.9 fL Mean Corpuscular Hemoglobin 31.0 pg Mean Corpuscular Hemoglobin Concent 31.7 g/dl Platelet Count 263 K/uL Mean Platelet Volume 8.5 fL Neutrophils (%) (Auto) 68.8 % Lymphocytes (%) (Auto) 16.3 % Monocytes (%) (Auto) 8.8 % Eosinophils (%) (Auto) 5.3 % Basophils (%) (Auto) 0.3 % Neutrophils # (Auto) 5.29 K/uL Lymphocytes # (Auto) 1.25 K/uL Monocytes # (Auto) 0.68 K/uL Eosinophils # (Auto) 0.41 K/uL Basophils # (Auto) 0.02 K/uL RDW Standard Deviation 61.5 fL RDW Coefficient of Variation 17.2 % Immature Granulocyte % (Auto) 0.5 % Immature Granulocyte # (Auto) 0.04 K/uL Prothrombin Time 50.9 SECONDS Prothromb Time International Ratio 4.5 Creatinine 1.00 mg/dl Est Creatinine Clear Calc Drug Dose 57.7 ml/min Estimated GFR () 63.4 Estimated GFR (Non- 54.7 Assessment and Plan 76 y/o F Hx HTN, HPL, chronic AF on Coumadin, multiple DVTs, PVD, carotid disease, morbidly obese. Recently, the pt was admitted to [place] to undergo a colonoscopy. She is highly prone to clot formation and was admitted for bridging on Lovenox prior to the procedure. She developed a large hematoma at the injection site which became infected and required debridement and placement of a wound vac - today noted that she had developed erythema, warmth and pain of her skin extending from her abdominal wound over her R thigh. She may have had a fever one day prior. Cellulitis - Improving on day # 3 Unasyn - Vanc dced. WBC 11-->7. Wound care and gen surg consulted. Conservative tx at this time. US determined no DVT. BC NGTD AF - recent pacer placement - rate is controlled - cont B salud, dig - INR is therapeutic 4.5. Coumadin placed on hold. Multiple DVTs - needs bridging if Coumadin is held for procedure - INR currently therapeutic Hypothyroidism - cont Synthroid CAD - no evidence of ACS - cont Statin, ASA, Bblocker C/O SOB - no hypoxia or evidence of acte process - may have a degree of obesity hypoventilation - will place on 02 protocol and PM oximetry Ful code - Coumadin prophylaxis
[2017-02-26 15:07] VITALS: BP 91/58; PULSE 64; TEMP 36.6; O2SAT 96
[2017-02-26 16:30] VITALS: O2SAT 96
[2017-02-26] MEDS: DIGOXIN 0.25 MG TAB PO SCH (17:27)
[2017-02-26] MEDS ORDERED: VANCOMYCIN TROUGH SCH (19:30)
[2017-02-26 21:55] VITALS: BP 105/72; PULSE 64
[2017-02-26 22:53] VITALS: BP 125/80; PULSE 64; TEMP 36.8; O2SAT 96
[2017-02-27] VITALS (7 sets, daily range): BP systolic 95–127; BP diastolic 57–72; PULSE 64–86; TEMP 36.4–36.8; O2SAT 95–97
[2017-02-27] MEDS: PIPERACILL/TAZOBAC IV 4.5 GM in DEXTROSE 5% 100ML IV SCH (03:11)
[2017-02-27] MEDS ORDERED: MoRPHine SULFATE 2 MG/ML CARP IV STA ×2 (04:09→04:25)
[2017-02-27] MEDS ORDERED: NURSING VERBAL MED ORDER STA (04:10)
[2017-02-27] MEDS ORDERED: MoRPHine SULFATE 2 MG/ML CARP ONE (04:31)
[2017-02-27] MEDS: LEVOTHYROXINE 88 MCG TAB PO SCH (05:24)
[2017-02-27 05:46] LABS: BASO % 0.1 %; BASO ABS # 0.01 K/uL (0-0.2); COMPLETE YES; EOS % 6.8 %; HEMATOCRIT 32.8 % (37-47); IG% 1.1 %; LYMPH % 21.2 %; LYMPH ABS # 1.55 K/uL (1.2-3.4); MEAN CELL VOLUME 96.2 fL (80-100); MEAN CORPUSCULAR HEMOGLOBIN 29.6 pg (25-34); MEAN CORPUSCULAR HGB CONC 30.8 g/dl (32-36); MEAN PLATELET VOLUME 8.8 fL (7.4-10.4); MONO % 7.8 %; PLATELET COUNT 337 K/uL (130-400); RED BLOOD COUNT 3.41 M/uL (4.2-5.4)
[2017-02-27 06:02] LABS: PROTHROMBIN TIME (PATIENT) 46.5 SECONDS (9.0-12.0)
[2017-02-27 06:04] LABS: INR 4.1 (0.9-1.1)
[2017-02-27 06:19] LABS: CREATININE 1.2 mg/dl (0.60-1.20)
--- NOTE | 2017-02-27 08:36 | Clinical Documentation Query ---
CLINICAL DOCUMENTATION QUERY 76 year old female who presents to the Emergency Room with complaints of right leg erythema. This query is to ascertain if the Cellulitis is due to to abdominal wound or a stand alone infection. In your clinical opinion is this patient being managed for: ( ) Postoperative cellulitis of right thigh due to infected hematoma s/p evacuation ( x ) Cellulitis to right thigh unrelated to abdominal wound. ( ) Other explanation of clinical findings (Please Explain) ( ) Unable to determine (Please Define) ( ) Need to Discuss ( ) Not Agree The medical record reflects the following clinical findings, treatment, and risk factors. Clinical Indicators: H&P states patient "developed a large hematoma at the injection site which became infected and required debridement and placement of a wound vac - today noted that she had developed erythema, warmth and pain of her skin extending from her abdominal wound over her R thigh." Treatment: IV Vanco, Unasyn, Surgical consult, WOCN consult. Risk Factors: Age and recent infected hematoma s/p I/D. Please clarify and document your clinical opinion in the progress notes and discharge summary. Terms such as "probable", "suspected", "likely", "questionable", "possible", or "still to be ruled out" are acceptable. IF IN AGREEMENT, YOU MUST DOCUMENT ABOVE DIAGNOSTIC STATEMENT IN DAILY PROGRESS NOTES AND DISCHARGE SUMMARY. This document is not part of the patient's record. Thank You, Keith Fermin RN [phone]
[2017-02-27] MEDS: CHOLECALCIFEROL 1000 INTER.UNIT TAB PO SCH (09:14)
[2017-02-27] MEDS: CITALOPRAM 20 MG TAB PO SCH (09:15)
[2017-02-27] MEDS: LISINOPRIL 20 MG TAB PO SCH (09:17)
[2017-02-27] MEDS: ATORVASTATIN 40 MG TAB PO SCH (09:18)
[2017-02-27] MEDS: BOOST VANILLA PO SCH ×4 (09:18→17:45)
[2017-02-27] MEDS: POTASSIUM CHLORIDE 20 MEQ TABCR PO SCH (09:19)
[2017-02-27] MEDS: METOPROLOL TARTRATE 50 MG TAB PO SCH ×2 (09:19→21:00)
[2017-02-27] MEDS: TOLTERODINE TARTRATE LA 4 MG CAPCR PO SCH (09:20)
[2017-02-27] MEDS: ASPIRIN 81 MG ECTAB PO SCH (09:20)
--- NOTE | 2017-02-27 09:48 | Surgery Progress Note ---
Surgery Progress Note Date of Service Feb 27, 2017. Subjective + feeling well pt is doing fine, less redness on right leg, no fever, no leg pain, Objective Vital Signs: Date Time Temp Pulse Resp B/P (MAP) Pulse Ox O2 Delivery O2 Flow Rate FiO2 02/27/17 09:09 86 110/68 (82) 02/27/17 07:33 36.8 83 20 100/63 (75) 95 Room Air 02/26/17 22:53 36.8 64 24 125/80 (95) 96 Room Air 02/26/17 21:55 64 105/72 (83) 02/26/17 19:14 Room Air 02/26/17 17:27 78 02/26/17 16:30 96 Room Air 02/26/17 15:07 36.6 64 18 91/58 (69) 96 Room Air General Appearance: WD/WN Head: normocephalic Neck: supple, no JVD Respiratory/Chest: chest non-tender, lungs clear Cardiovascular: regular rate, rhythm, no edema Abdomen: normal bowel sounds, non tender Extremities: normal range of motion, non-tender, normal inspection Laboratory Results: Results Past 24 Hours Test 02/27/17 05:14 Range/Units White Blood Count 7.30 4.8-10.8 K/uL Red Blood Count 3.41 4.2-5.4 M/uL Hemoglobin 10.1 12.0-16.0 g/dL Hematocrit 32.8 37-47 % Mean Corpuscular Volume 96.2 80-100 fL Mean Corpuscular Hemoglobin 29.6 25-34 pg Mean Corpuscular Hemoglobin Concent 30.8 32-36 g/dl Platelet Count 337 130-400 K/uL Mean Platelet Volume 8.8 7.4-10.4 fL Neutrophils (%) (Auto) 63.0 % Lymphocytes (%) (Auto) 21.2 % Monocytes (%) (Auto) 7.8 % Eosinophils (%) (Auto) 6.8 % Basophils (%) (Auto) 0.1 % Neutrophils # (Auto) 4.59 1.4-6.5 K/uL Lymphocytes # (Auto) 1.55 1.2-3.4 K/uL Monocytes # (Auto) 0.57 0.11-0.59 K/uL Eosinophils # (Auto) 0.50 0-0.5 K/uL Basophils # (Auto) 0.01 0-0.2 K/uL RDW Standard Deviation 60.6 36.4-46.3 fL RDW Coefficient of Variation 16.9 11.5-14.5 % Immature Granulocyte % (Auto) 1.1 % Immature Granulocyte # (Auto) 0.08 0.00-0.02 K/uL Prothrombin Time 46.5 9.0-12.0 SECONDS Prothromb Time International Ratio 4.1 0.9-1.1 Creatinine 1.20 0.60-1.20 mg/dl Est Creatinine Clear Calc Drug Dose 48.1 ml/min Estimated GFR () 50.8 Estimated GFR (Non- 43.9 Assessment & Plan F/U cellulitis on right leg , and abdominal wall wound, pt is doing better, continue IV antibiotic, Will F/U, 02/26/2017 pt is doing better, continue treatment, will F/U 02/27/2017, pt is doing better, may D/C home tomorrow with po antibiotic, sign off today, please victorino me if need me pt will F/U wound care center Thanks, F/U cellulitis on right leg , and abdominal wall wound, pt is doing better, continue IV antibiotic, Will F/U, 02/26/2017 pt is doing better, continue treatment, will F/U
--- NOTE | 2017-02-27 12:13 | Hospitalist Progress Note ---
Hospitalist Progress Note Date of Service Feb 27, 2017. Subjective Pt evaluation today including: conversation w/ patient, physical exam, chart review, lab review, conversation w/ [facility] consultant (spoke with Dr. Montanez) Pain: None PO Intake: Tolerating PO diet Voiding: no voiding problems Patient states she had a rough night last night. She states that her wound vac had stopped working, so it had to be repacked/redone and prevented her from getting much sleep. She states she feels a bit weaker today compared to yesterday as well as fatigued. She complains of an intermittent, dry, non- productive cough. She denies any pain at her wound site unless it is being manipulated, such as when the wound vac is changed. The patient denies fevers, chills, sweats, chest pain, palpitations, claudication, wheezing, shortness of breath, nausea, vomiting, abdominal pain, dysuria, hematuria, urinary retention , paralysis, weakness, numbness and tingling. Additional Comments: See HPI for pertinent positives and negatives. All other systems reviewed and negative. Objective Vital Signs Date Time Temp Pulse Resp B/P (MAP) Pulse Ox O2 Delivery O2 Flow Rate FiO2 02/27/17 09:09 86 110/68 (82) 02/27/17 07:50 Room Air 02/27/17 07:33 36.8 83 20 100/63 (75) 95 Room Air 02/26/17 22:53 36.8 64 24 125/80 (95) 96 Room Air 02/26/17 21:55 64 105/72 (83) 02/26/17 19:14 Room Air 02/26/17 17:27 78 02/26/17 16:30 96 Room Air 02/26/17 15:07 36.6 64 18 91/58 (69) 96 Room Air Physical Exam Notes: General appearance: +Obese. Well-developed, well-nourished, no apparent distress Head: Normocephalic, atraumatic Eyes: Normal inspection, PERRL, EOMI ENT: Normal ENT inspection, hearing grossly normal, pharynx normal Neck: Supple, no JVD, trachea midline Respiratory/Chest: Lungs clear to auscultation, normal breath sounds, no respiratory distress Cardiovascular: +Irregularly irregulare, rate controlled. Systolic murmur. No gallop. Abdomen/GI: +Large wound RLQ dressing c/d/i. Erythema much improved. Large ventral hernia. Normal bowel sounds, non-tender, soft Extremities/Musculoskeletal: Normal inspection, no calf tenderness, no pedal edema Neurological/Psych: Alert, normal mood/affect, oriented x 3 Skin: Normal color, warm/dry, no rash Laboratory Results Last 24 Hours Test 02/27/17 05:14 White Blood Count 7.30 K/uL Red Blood Count 3.41 M/uL Hemoglobin 10.1 g/dL Hematocrit 32.8 % Mean Corpuscular Volume 96.2 fL Mean Corpuscular Hemoglobin 29.6 pg Mean Corpuscular Hemoglobin Concent 30.8 g/dl Platelet Count 337 K/uL Mean Platelet Volume 8.8 fL Neutrophils (%) (Auto) 63.0 % Lymphocytes (%) (Auto) 21.2 % Monocytes (%) (Auto) 7.8 % Eosinophils (%) (Auto) 6.8 % Basophils (%) (Auto) 0.1 % Neutrophils # (Auto) 4.59 K/uL Lymphocytes # (Auto) 1.55 K/uL Monocytes # (Auto) 0.57 K/uL Eosinophils # (Auto) 0.50 K/uL Basophils # (Auto) 0.01 K/uL RDW Standard Deviation 60.6 fL RDW Coefficient of Variation 16.9 % Immature Granulocyte % (Auto) 1.1 % Immature Granulocyte # (Auto) 0.08 K/uL Prothrombin Time 46.5 SECONDS Prothromb Time International Ratio 4.1 Creatinine 1.20 mg/dl Est Creatinine Clear Calc Drug Dose 48.1 ml/min Estimated GFR () 50.8 Estimated GFR (Non- 43.9 Assessment and Plan 76 y/o female with a history of HTN, HPL, chronic a-fib on Coumadin, multiple DVTs, PVD, and carotid disease who was recently admitted to [place] for Lovenox bridge therapy prior to undergoing a colonoscopy. The patient developed a large hematoma at the injection site which later became infected and required debridement and a wound vac. The patient presented with erythema, warmth and tenderness around abdominal wound extending to right thigh. Cellulitis--improving -Admitted to med/surg -Dopplers negative for DVT -Initially started on Unasyn and vancomycin. Vanc d'cd, Unasyn switched to Zosyn. Day #4 of abx of 10 -Convert Zosyn to Levaquin 750 mg PO q48h due to renal dosing -Leukocytosis resolved -General surgery consulted, appreciate recs: keep for one more day, can discharge tomorrow on PO antibiotics. -Wound care on board -Blood cultures NGTD Chronic a-fib, recent pacer placement--stable, rate controlled -Continue Lopressor 50 mg PO BID and digoxin 0.25 mg PO qd -INR still supratherepeutic at 4.1, continue to hold warfarin H/o multiple DVTs -INR as above, resume warfarin when no longer supratherapeutic Hypothyroidism -Continue Synthroid 88 mcg PO qd CAD--stable -Continue atorvastatin 80 mg PO qd, ASA, metoprolol as above HTN--stable -Continue lisinopril 20 mg PO qd HLD -Statin as above Anxiety/depression -Continue citalopram 20 mg PO qd DVT prophylaxis -Warfarin supratherapeutic Code Status -Level I, FULL RESUSCITATION STATUS
[2017-02-27] MEDS: ACETAMINOPHEN 325 MG TAB PO PRN (12:23)
[2017-02-27] MEDS ORDERED: LEVOFLOXACIN 750 MG TAB PO SCH (13:00)
[2017-02-27] MEDS ORDERED: NURSING VERBAL MED ORDER ONE (13:15)
[2017-02-27] MEDS: DIGOXIN 0.25 MG TAB PO SCH (15:59)
[2017-02-28] MEDS: LEVOTHYROXINE 88 MCG TAB PO SCH (05:41)
[2017-02-28 07:00] LABS: HEMATOCRIT 30.2 % (37-47); MEAN CELL VOLUME 98.7 fL (80-100); MEAN CORPUSCULAR HEMOGLOBIN 30.4 pg (25-34); MEAN CORPUSCULAR HGB CONC 30.8 g/dl (32-36); MEAN PLATELET VOLUME 8.7 fL (7.4-10.4); PLATELET COUNT 316 K/uL (130-400); RED BLOOD COUNT 3.06 M/uL (4.2-5.4); WHITE BLOOD COUNT 7.23 K/uL (4.8-10.8)
[2017-02-28 07:13] LABS: PROTHROMBIN TIME (PATIENT) 44.2 SECONDS (9.0-12.0)
[2017-02-28 07:14] LABS: INR 3.9 (0.9-1.1)
[2017-02-28 07:26] LABS: BUN/CREATININE RATIO 10.6 (10-20); CALCIUM 8.3 mg/dl (8.5-10.1); CREATININE 0.97 mg/dl (0.60-1.20)
[2017-02-28 07:29] VITALS: BP 111/63; PULSE 76; TEMP 36.7; O2SAT 96
[2017-02-28] MEDS: BOOST VANILLA PO SCH ×2 (08:25)
[2017-02-28] MEDS: LISINOPRIL 20 MG TAB PO SCH (08:32)
[2017-02-28] MEDS: CHOLECALCIFEROL 1000 INTER.UNIT TAB PO SCH (08:33)
[2017-02-28] MEDS: METOPROLOL TARTRATE 50 MG TAB PO SCH (08:33)
[2017-02-28] MEDS: POTASSIUM CHLORIDE 20 MEQ TABCR PO SCH (08:34)
[2017-02-28] MEDS: ASPIRIN 81 MG ECTAB PO SCH (08:34)
[2017-02-28] MEDS: ATORVASTATIN 40 MG TAB PO SCH (08:34)
[2017-02-28] MEDS: CITALOPRAM 20 MG TAB PO SCH (08:36)
[2017-02-28] MEDS: TOLTERODINE TARTRATE LA 4 MG CAPCR PO SCH (08:36)
[2017-02-28] MEDS ORDERED: NURSING VERBAL MED ORDER ONE (08:45)
[2017-02-28] MEDS ORDERED: LVQ750 PO (11:27)
--- NOTE | 2017-02-28 11:30 | Surgery Progress Note ---
Surgery Progress Note Date of Service Feb 28, 2017. Subjective + feeling well pt is doing better, no C/O, all redness on right leg is gone, Objective Vital Signs: Date Time Temp Pulse Resp B/P (MAP) Pulse Ox O2 Delivery O2 Flow Rate FiO2 02/28/17 08:30 Room Air 02/28/17 07:29 36.7 76 17 111/63 (79) 96 Room Air 02/27/17 23:30 Room Air 02/27/17 22:54 36.8 65 20 127/72 (90) 97 Room Air 02/27/17 20:58 64 97/63 (74) 95 Room Air 02/27/17 15:59 68 02/27/17 15:55 36.5 68 18 95/57 (70) 95 Room Air 02/27/17 15:30 Room Air 02/27/17 15:11 71 97 02/27/17 14:55 36.4 86 18 113/72 (86) 95 Room Air General Appearance: WD/WN Head: normocephalic Neck: supple, no JVD Respiratory/Chest: chest non-tender, lungs clear Cardiovascular: regular rate, rhythm, no edema Abdomen: normal bowel sounds, non tender Extremities: normal range of motion, non-tender, normal inspection Laboratory Results: Results Past 24 Hours Test 02/28/17 06:46 Range/Units White Blood Count 7.23 4.8-10.8 K/uL Red Blood Count 3.06 4.2-5.4 M/uL Hemoglobin 9.3 12.0-16.0 g/dL Hematocrit 30.2 37-47 % Mean Corpuscular Volume 98.7 80-100 fL Mean Corpuscular Hemoglobin 30.4 25-34 pg Mean Corpuscular Hemoglobin Concent 30.8 32-36 g/dl RDW Standard Deviation 61.1 36.4-46.3 fL RDW Coefficient of Variation 16.9 11.5-14.5 % Platelet Count 316 130-400 K/uL Mean Platelet Volume 8.7 7.4-10.4 fL Prothrombin Time 44.2 9.0-12.0 SECONDS Prothromb Time International Ratio 3.9 0.9-1.1 Sodium Level 141 136-145 mmol/L Potassium Level 5.0 3.5-5.1 mmol/L Chloride Level 111 98-107 mmol/L Carbon Dioxide Level 26 21-32 mmol/L Anion Gap 4.0 3-11 mmol/L Blood Urea Nitrogen 10 7-18 mg/dl Creatinine 0.97 0.60-1.20 mg/dl Est Creatinine Clear Calc Drug Dose 59.5 ml/min Estimated GFR () 65.8 Estimated GFR (Non- 56.7 BUN/Creatinine Ratio 10.6 10-20 Random Glucose 79 70-99 mg/dl Calcium Level 8.3 8.5-10.1 mg/dl Assessment & Plan F/U cellulitis on right leg , and abdominal wall wound, pt is doing better, continue IV antibiotic, Will F/U, 02/26/2017 pt is doing better, continue treatment, will F/U 02/27/2017, pt is doing better, may D/C home tomorrow with po antibiotic, sign off today, please victorino me if need me pt will F/U wound care center Thanks, 02/28/2017 pt can be discharged home to day, F/U her wound care nurse and wound care center , F/U me prn, F/U cellulitis on right leg , and abdominal wall wound, pt is doing better, continue IV antibiotic, Will F/U, 02/26/2017 pt is doing better, continue treatment, will F/U 02/27/2017, pt is doing better, may D/C home tomorrow with po antibiotic, sign off today, please victorino me if need me pt will F/U wound care center Thanks,
--- NOTE | 2017-02-28 11:44 | Discharge Instructions ---
Discharge Instructions Date of Service Feb 28, 2017. Admission Reason for Admission: Cellulitis Of Right Leg Discharge Discharge Diagnosis / Problem: Cellulitis Discharge Goals Goal(s): Decrease discomfort, Diagnostic testing, Therapeutic intervention Activity Recommendations Activity Limitations: resume your previous activity (as tolerated per physical therapy) . Instructions / Follow-Up Instructions / Follow-Up You were admitted to the hospital with redness, warmth, and pain surrounding your abdominal wound and extending down to your right thigh. This was found to be cellulitis, or a skin infection. You were treated with IV antibiotics for the first few days, which resulted in a rapid improvement of the redness. You have been switched to an oral antibiotic to continue on discharge. The wound did not require any further debridement or surgical intervention, and you are now medically stable for discharge. Medications: *Please take Levaquin (levofloxacin) 750 mg by mouth every other day. Your first dose is due tomorrow, March 01. You have 6 doses remaining to complete a 10 day antibiotic course. Your last dose will be March 11. *HOLD your warfarin dose today as your INR is too high. You will need to follow up closely with your anticoagulation clinic or primary care doctor to continue to monitor your PT/INR and to determine when you should resume the warfarin. *Continue your other home medications as prescribed. Follow up: *You have been scheduled to follow up with the wound care clinic on March 08 at 10:30 am. *You have also been scheduled to follow up with your primary care provider, Dr. Parmar, on March 09 at 11:30 am. *You will be set up with home health physical therapy services. *Please follow up closely with your anticoagulation clinic in order to monitor your warfarin. Please seek medical attention if you experience fevers, chills, sweats, dizziness/lightheadedness, loss of consciousness, chest pain, shortness of breath, nausea, vomiting, numbness or tingling, or if you experience worsening redness, warmth, tenderness or swelling around your wound or right leg. Current Hospital Diet Patient's current hospital diet: AHA Diet (Heart Healthy) Discharge Diet Recommended Diet: AHA Diet (Heart Healthy) Pending Studies Studies pending at discharge: yes List of pending studies: Final blood cultures. Preliminary results no growth to date. Medical Emergencies . Who to Call and When: Medical Emergencies: If at any time you feel your situation is an emergency, please call 911 immediately. . Non-Emergent Contact Non-Emergency issues call your: Primary Care Provider Call Non-Emergent contact if: you have a fever, wound has increased drainage, wound has increased redness, wound has increased pain, you have any medication questions . Past History Medical & Surgical History: (1) Cellulitis of right thigh . "Provider Documentation" section prepared by Ele Bryson. . VTE Core Measure Inpt VTE Proph given/why not?: Warfarin (Coumadin)
--- NOTE | 2017-02-28 12:24 | Discharge Summary ---
Discharge Summary Date of Service Feb 28, 2017. Discharge Summary Admission Date: Feb 24, 2017 at 17:09 Discharge Date: Feb 28, 2017 Discharge Disposition: Home with services Principal Diagnosis: Cellulitis Consultations: General surgery--Dr. Montanez Medication Reconciliation New Medications: Levofloxacin (Levofloxacin) 750 Mg Tab 750 MG PO Q2D@11 for 12 Days, #6 TAB Take 1 tablet by mouth every other day. First dose 03/01/17, last dose 03/11/17. Continued Medications: Aspirin (Aspirin EC Low Dose) 81 Mg Ectab 81 MG PO QAM for 30 Days, 3 Refills Atorvastatin (Atorvastatin Calcium) 40 Mg Tab 80 MG PO QAM for 30 Days, TAB 3 Refills Cholecalciferol (Vitamin D 1000 Unit) 1,000 Unit Cap 1000 INTER.UNIT PO DAILY, CAP Citalopram (Citalopram Hydrobromide) 40 Mg Tab 20 MG PO DAILY 1/2 tablet dose Digoxin (Digoxin) 0.25 Mg Tab 1 TAB PO DAILY Levothyroxine Sodium (Levothyroxine Sodium) 88 Mcg Tab 88 MCG PO DAILY Lisinopril (Lisinopril) 20 Mg Tab 20 MG PO DAILY Lorazepam (Ativan) 0.5 Mg Tab 0.5 MG PO TID PRN for as needed, TAB Metoprolol Tartrate (Lopressor) 50 Mg Tab 50 MG PO BID, TAB Potassium Chloride Microencaps (Potassium Chloride Er) 20 Meq Tab 1 TAB PO DAILY for 90 Days, #90 TAB 3 Refills Tolterodine Tartrate (Tolterodine Tartrate ER) 4 Mg Cap 4 MG PO DAILY Discontinued Medications: Warfarin Sodium (Warfarin Sodium) 5 Mg Tab 2.5-5 MG PO daily as directed Discharge Exam Patient reports feeling well. Prior to my examination she had been moved up to the bathroom to wash up and then over the chair to sit, and she states that this activity made her feel short of breath, and she is still feeling somewhat short of breath now at rest. She is otherwise feeling well and denies any pain at the wound site or her right thigh. She is eager for discharge to home. The patient denies fevers, chills, sweats, chest pain, palpitations, claudication, cough, wheezing, nausea, vomiting, abdominal pain, dysuria, hematuria, urinary retention, paralysis, weakness, numbness and tingling. Review of Systems: Constitutional: + weakness, + fatigue, No fever, No chills, No sweats Eyes: No worsening of vision, No eye pain, No diplopia ENT: No hearing loss, No sore throat, No trouble swallowing Respiratory: + shortness of breath, + dyspnea on exertion, No cough, No wheezing Cardiovascular: No chest pain, No claudication, No palpitations Abdomen: No pain, No nausea, No vomiting Musculoskeletal: No joint pain, No muscle pain, No calf pain Genitourinary - Female: No dysuria, No urinary retention, No hematuria Neurologic: No paralysis, No weakness, No numbness/tingling Integumentary: No rash, No itch, No color change Physical Exam: General Appearance: WD/WN, no apparent distress, + obese Eyes: normal inspection, PERRL, EOMI ENT: normal ENT inspection, hearing grossly normal, pharynx normal Neck: supple, no JVD, trachea midline Respiratory/Chest: lungs clear, normal breath sounds, no respiratory distress Cardiovascular: no gallop, + systolic murmur, + irregularly irregular (rate controlled) Abdomen / GI: normal bowel sounds, soft, + tenderness (mild tenderness over wound site), + hernia (large hernia), + pertinent finding (wound vac in place) Extremities: normal inspection, no calf tenderness, no pedal edema Neurologic/Psychiatric: alert, normal mood/affect, oriented x 3 Skin: normal color, warm/dry, no rash, + pertinent finding (erythema from wound site/right thigh greatly improved. No warmth or tenderness) Hospital Course 76 y/o female with a history of HTN, HPL, chronic a-fib on Coumadin, multiple DVTs, PVD, and carotid disease who was recently admitted to [facility] for Lovenox bridge therapy prior to undergoing a colonoscopy. The patient developed a large hematoma at the injection site which later became infected and required debridement and a wound vac. The patient presented with erythema, warmth and tenderness around abdominal wound extending to right thigh. Cellulitis from abdominal wound extending to right thigh/leg--improving -Admitted to med/surg -Dopplers negative for DVT -Initially started on Unasyn and vancomycin. Vanc d'cd, Unasyn switched to Zosyn. Day #4 of abx of 10 completed while inpatient -Convert Zosyn to Levaquin 750 mg PO q48h due to renal dosing. Continue as outpatient for 6 more doses to complete 10 day course. -Leukocytosis resolved -General surgery consulted, appreciate recs: okay to discharge home with PO abx. F/u with wound care and Dr. Tarik rubi -Wound care on board. Pt scheduled to follow up at wound care clinic 03/08 -Blood cultures NGTD Chronic a-fib, recent pacer placement--stable, rate controlled -Continue Lopressor 50 mg PO BID and digoxin 0.25 mg PO qd -INR still supratherapeutic at 3.9, continue to hold warfarin -Recheck INR in 2 days, forward results to PCP and determine when to resume H/o multiple DVTs -INR as above, resume warfarin when no longer supratherapeutic Hypothyroidism -Continue Synthroid 88 mcg PO qd CAD--stable -Continue atorvastatin 80 mg PO qd, ASA, metoprolol as above HTN--stable -Continue lisinopril 20 mg PO qd HLD -Statin as above Anxiety/depression -Continue citalopram 20 mg PO qd DVT prophylaxis -Warfarin supratherapeutic Code Status -Level I, FULL RESUSCITATION STATUS Dispo -Pt from home with services for wound vac -PT evaluated, recommended rehab which pt refused. Recommend at least home health physical therapy Total Time Spent: Greater than 30 minutes This includes examination of the patient, discharge planning, medication reconciliation, and communication with other providers. Discharge Instructions Please refer to the electronic Patient Visit Report (Discharge Instructions) for additional information. Additional Copies To Jeremie Parmar M.D.
[2017-02-28 12:40] VITALS: BP 111/63; PULSE 76; TEMP 36.7; O2SAT 96
[2017-05-02] MEDS ORDERED: AMOX875T PO (10:36)
[2017-05-02] MEDS ORDERED: SULF800T23 PO (10:36)
[2017-05-02] MEDS ORDERED: SACC250C3 PO (10:36)
[2017-05-12] MEDS ORDERED: PROB1CAP6 (10:45)
== END 2017-02-28 14:41 | disposition home health service (06) | DRG 602 ==
LOC: EDBD 12:36 → C.EDA 12:41 → C.MSW 17:09 → EDBEDREQ 17:13 → ENRESERV 17:28
PROVIDERS: ADMIT Internal Medicine; ATTEND Hospitalist
DX: L03.116 Cellulitis of left lower limb (principal); S31.609A Unspecified open wound of abdominal wall, unspecified quadrant with penetration into peritoneal cavity, initial encounter; X58.XXXA Exposure to other specified factors, initial encounter; E66.01 Morbid (severe) obesity due to excess calories; E03.9 Hypothyroidism, unspecified; I48.2 Chronic atrial fibrillation; I25.10 Atherosclerotic heart disease of native coronary artery without angina pectoris; R78.5 Finding of other psychotropic drug in blood; I10 Essential (primary) hypertension; F32.9 Major depressive disorder, single episode, unspecified; F41.9 Anxiety disorder, unspecified; I65.29 Occlusion and stenosis of unspecified carotid artery; I73.9 Peripheral vascular disease, unspecified; R06.02 Shortness of breath; Z95.0 Presence of cardiac pacemaker; Z79.82 Long term (current) use of aspirin; Z68.38 Body mass index [BMI] 38.0-38.9, adult; Z79.899 Other long term (current) drug therapy; Z79.01 Long term (current) use of anticoagulants

== ENCOUNTER → 2017-03-16 | Outpatient (CLI) | payer OTHER ==
[~2017-03-16] MED LIST changes: +AMOX875T PO; +ASPI-589 PO; +ATOR-24 PO; +CHOL100027 PO; -DIGO0.2576 PO; +LNX25 PO; -LSX40 PO; +LVQ750 PO; +LXP/20 PO; +METO-551 PO; -METO100T14 PO; -POTA-327 PO; +POTA20TA13 PO; +POTA20TA16 PO; +PROB1CAP6; +SACC250C3 PO; +SULF800T23 PO; -TOLT1CAP3 PO; -WARF-246 PO; +WARF-285 PO; +WARF4TAB8 PO
[2017-03-16 18:08] LABS: BASO % 0.3 %; BASO ABS # 0.02 K/uL (0-0.2); COMPLETE YES; EOS % 5.4 %; HEMATOCRIT 37.5 % (37-47); IG% 0.3 %; LYMPH % 17.2 %; LYMPH ABS # 1.23 K/uL (1.2-3.4); MEAN CELL VOLUME 98.9 fL (80-100); MEAN CORPUSCULAR HEMOGLOBIN 29.8 pg (25-34); MEAN CORPUSCULAR HGB CONC 30.1 g/dl (32-36); MEAN PLATELET VOLUME 9.9 fL (7.4-10.4); NEUT % 68.8 %; PLATELET COUNT 238 K/uL (130-400); RED BLOOD COUNT 3.79 M/uL (4.2-5.4); WHITE BLOOD COUNT 7.16 K/uL (4.8-10.8)
[2017-03-16 18:28] LABS: ALT/SGPT 18 U/L (12-78); AST/SGOT 30 U/L (15-37); BLOOD UREA NITROGEN 24 mg/dl (7-18); BUN/CREATININE RATIO 24.2 (10-20); CALCIUM 8.6 mg/dl (8.5-10.1); CARBON DIOXIDE 31 mmol/L (21-32); CHLORIDE 105 mmol/L (98-107); CHOLESTEROL 112 mg/dl (0-200); CREATININE 0.99 mg/dl (0.60-1.20); GLUCOSE 105 mg/dl (70-99); MAGNESIUM 1.6 mg/dl (1.8-2.4); POTASSIUM 3.9 mmol/L (3.5-5.1); SODIUM 137 mmol/L (136-145)
[2017-03-16 18:37] LABS: CHOLESTEROL/HDL RATIO 2.8; HDL CHOLESTEROL 40 mg/dl; LDL CHOLESTEROL CALCULATED 54 mg/dl; TOTAL IRON BINDING CAPACITY 205 mcg/dl (250-450); TRIGLYCERIDES 90 mg/dl (0-150); VERY LOW DENSITY LIPOPROT CALC 18 mg/dl
== END | disposition home or self-care (01) ==
LOC: C.LABMFLN 12:49
PROVIDERS: ATTEND Family Medicine
DX: I48.91 Unspecified atrial fibrillation (principal); I10 Essential (primary) hypertension; E03.9 Hypothyroidism, unspecified; D50.0 Iron deficiency anemia secondary to blood loss (chronic); E78.5 Hyperlipidemia, unspecified

== ENCOUNTER 2017-03-30 10:11 | Inpatient (IN) | payer OTHER ==
[~2017-03-30] VITALS: Ht 165.1 cm; Wt 102.6 kg
[~2017-03-30 10:11] MED LIST changes: -AMOX875T PO; -ASPI-589 PO; -ATOR-24 PO; -LXP/20 PO; -POTA20TA16 PO; -PROB1CAP6; -SACC250C3 PO; -SULF800T23 PO; -WARF-285 PO; -WARF4TAB8 PO
--- NOTE | 2017-03-30 10:54 | DIAGNOSTIC IMAGING REPORT ---
CHEST ONE VIEW PORTABLE CLINICAL HISTORY: CHEST PAIN dyspnea COMPARISON STUDY: 04/16/2014 FINDINGS: Permanent unipolar cardiac pacemaker. Lungs are clear. Chronic right hilar fullness. Diaphragms are smooth. IMPRESSION: No acute process. Chronic changes as noted The above report was generated using voice recognition software. It may contain grammatical, syntax or spelling errors. Electronically signed by: Gilmer Frausto M.D. 03/30/2017 10:52 AM Dictated Date/Time: 03/30/2017 10:52 AM
--- NOTE | 2017-03-30 11:05 | EMERGENCY ROOM VISIT NOTE ---
History Report prepared by [place]: Rupal Horta Under the Supervision of: Dr. Josh Wagoner M.D. First contact with patient: 10:29 Chief Complaint: WEAKNESS Stated Complaint: HYPOTENSION/AFIB History of Present Illness The patient is a 77 year old female who presents to the Emergency Room with complaints of an episode of severe weakness starting this morning. The patient states that this morning she went to the bathroom with her 's assistance and coming back out became shaky. She states that she fell. She reports that they had to call her grandson to come help her get up. She states that she normally walks with a walker. She report that she went to her PCP who sent her here. The patient notes that she was vomiting four days ago, but hasn't since. The patient denies hitting her head, fevers, chills, cough, congestion, and nausea. The patient notes that she was on antibiotics for four days to treat the redness around her new pacemaker. Source of History: patient Onset: this morning Position: other (global) Symptom Intensity: severe Quality: other (global) Timing: other (episode) Associated Symptoms: + vomiting, No fevers, No chills, No cough, No nausea Note: The patient denies hitting her head and congestion. Review of Systems See HPI for pertinent positives and negatives. A total of ten systems were reviewed and were otherwise negative. Past Medical & Surgical Medical Problems: (1) Atrial Fibrillation (2) Benign Hypertension (3) Carotid Artery Occlusion W O Cerebral Infarction (4) Hyperlipidemia Nec/Nos (5) Hypothyroidism Nos Family History Cancer Diabetes mellitus Heart disease Hypertension Social History Smoking Status: Never Smoker Drug Use: none Marital Status: Housing Status: lives with family Occupation Status: retired Current/Historical Medications Scheduled Aspirin (Aspirin EC Low Dose), 81 MG PO QAM Atorvastatin (Atorvastatin Calcium), 80 MG PO QAM Cholecalciferol (Vitamin D 1000 Unit), 1,000 INTER.UNIT PO DAILY Citalopram (Citalopram Hydrobromide), 20 MG PO DAILY Digoxin (Digoxin), 1 TAB PO DAILY Levothyroxine Sodium (Levothyroxine Sodium), 88 MCG PO DAILY Lisinopril (Lisinopril), 20 MG PO DAILY Metoprolol Tartrate (Lopressor), 50 MG PO BID Potassium Chloride Microencaps (Potassium Chloride Er), 1 TAB PO DAILY Warfarin Sod (Jantoven), 4 MG PO 2XWK Warfarin Sodium (Warfarin Sodium), 3 MG PO 5XWK Scheduled PRN Lorazepam (Ativan), 0.5 MG PO TID PRN for as needed Allergies Coded Allergies: Oxytetracycline (Verified Allergy, Intermediate, "felt like a big ball in my stomach", 02/24/17) Polymyxin B (Verified Allergy, Intermediate, "felt like a big ball in my stomach", 02/24/17) Physical Exam Vital Signs Date Time Temp Pulse Resp B/P (MAP) Pulse Ox O2 Delivery O2 Flow Rate FiO2 03/30/17 17:17 91 03/30/17 16:45 93 17 96 Room Air 03/30/17 16:15 122 14 03/30/17 15:45 83 17 96 03/30/17 15:15 88 19 97 03/30/17 14:45 88 18 96 03/30/17 14:40 82 21 97 Room Air 03/30/17 14:10 98 28 93 03/30/17 13:40 101 23 92 03/30/17 13:35 101 26 03/30/17 13:17 99 03/30/17 13:05 80 22 97 Room Air 03/30/17 13:00 126/68 03/30/17 12:46 90 25 96 Room Air 03/30/17 12:41 98 24 96 Room Air 03/30/17 12:39 116/77 03/30/17 11:01 124/64 03/30/17 10:41 95 20 03/30/17 10:29 93 03/30/17 10:28 36.6 95 18 118/56 97 Room Air 03/30/17 10:22 118/56 03/30/17 10:20 96 Room Air Physical Exam GENERAL: Awake, alert, chronically ill-appearing, in no distress HENT: Normocephalic, atraumatic. Dry, cracked mucus membranes. EYES: Normal conjunctiva. Sclera non-icteric. NECK: Supple. No nuchal rigidity. FROM. No JVD. RESPIRATORY: Clear to auscultation. CARDIAC: Regular rate, normal rhythm. Extremities warm and well perfused. Pulses equal. Grade 3 systolic murmur. ABDOMEN: Soft, non-distended. No tenderness to palpation. No rebound or guarding. No masses. Obese. Large ventral henria. Large right lower quadrant wound vac. RECTAL: Deferred. MUSCULOSKELETAL: Chest examination reveals no tenderness. The back is symmetrical on inspection without obvious abnormality. There is no CVA tenderness to palpation. 3+ pitting edema bilateral lower extremities. Erythema , warm incision site from pacemaker. Tenderness with ROM in bilateral hips, knees, and tib fibs. LOWER EXTREMITIES: Calves are equal size bilaterally and non-tender. No edema. No discoloration. NEURO: Normal sensorium. No sensory or motor deficits noted. SKIN: No rash or jaundice noted. Medical Decision & Procedures ER Provider Diagnostic Interpretation: Radiology results as stated below per my review and radiologist interpretation: CHEST ONE VIEW PORTABLE CLINICAL HISTORY: CHEST PAIN dyspnea COMPARISON STUDY: 04/16/2014 FINDINGS: Permanent unipolar cardiac pacemaker. Lungs are clear. Chronic right hilar fullness. Diaphragms are smooth. IMPRESSION: No acute process. Chronic changes as noted The above report was generated using voice recognition software. It may contain grammatical, syntax or spelling errors. Electronically signed by: Gilmer Frausto M.D. 03/30/2017 10:52 AM Dictated Date/Time: 03/30/2017 10:52 AM LEFT TIBIA/FIBULA 2 VIEWS ROUTINE CLINICAL HISTORY: Pain. Trauma COMPARISON: None. DISCUSSION: There are osteoarthritic changes within the knee. No acute fractures are visualized. There is Achilles insertional calcification. IMPRESSION: No acute fractures identified. Electronically signed by: Cornelius Morin M.D. 03/30/2017 12:18 PM Dictated Date/Time: 03/30/2017 12:17 PM RIGHT TIBIA/FIBULA 2 VIEWS ROUTINE CLINICAL HISTORY: Pain. Trauma. COMPARISON: None. DISCUSSION: There are osteophytic changes involving the knee. There are Achilles insertional calcifications. There is irregularity of the medial malleolus. This is age-indeterminate. If the patient has ankle symptomatology, dedicated views of the ankle should be considered in follow-up. IMPRESSION: 1. Osteoarthritic changes involving the knee 2. Age-indeterminate irregularity of the medial malleolus of the distal tibia. If the patient has ankle symptomatology, dedicated views of the ankle should be considered in follow-up Electronically signed by: Cornelius Morin M.D. 03/30/2017 12:20 PM Dictated Date/Time: 03/30/2017 12:18 PM RIGHT KNEE 3 VIEWS CLINICAL HISTORY: Right knee pain. Trauma. COMPARISON: None. DISCUSSION: There are moderately advanced osteoarthritic changes. There is medial joint compartment narrowing and spurring. There are dorsal patellar spurs. There are no acute fractures. IMPRESSION: Moderately advanced osteoarthritic change. No acute fractures. Electronically signed by: Cornelius Morin M.D. 03/30/2017 12:17 PM Dictated Date/Time: 03/30/2017 12:16 PM PELVIS/BILATERAL HIP 2 VIEWS CLINICAL HISTORY: b/l hip pain pain COMPARISON STUDY: None FINDINGS: Severe degenerative change right hip. Deformity and sclerosis of the femoral head. Probable underlying dysplastic change. Moderate degenerative change left hip. No evidence for fracture. Moderate degenerative change sacroiliac joints with moderate degenerative change of the low lumbar spine. IMPRESSION: 1. Severe degenerative change right hip with probable underlying dysplastic change. 2. Moderate degenerative change left hip. 3. No acute abnormality The above report was generated using voice recognition software. It may contain grammatical, syntax or spelling errors. Electronically signed by: Gilmer Frausto M.D. 03/30/2017 12:22 PM Dictated Date/Time: 03/30/2017 12:20 PM LEFT KNEE 3 VIEWS CLINICAL HISTORY: pain pain COMPARISON: None. DISCUSSION: Significant degenerative change medial joint compartment as well as patellofemoral joint. Moderate reactive osteophytic change throughout. No significant joint effusion. Nondisplaced cortical fracture proximal fibula. IMPRESSION: 1. Degenerative change primarily of the medial and patellofemoral joint compartments. 2. Nondisplaced hairline fracture proximal fibular shaft. The above report was generated using voice recognition software. It may contain grammatical, syntax or spelling errors. Electronically signed by: Gilmer Frausto M.D. 03/30/2017 12:20 PM Dictated Date/Time: 03/30/2017 12:18 PM Laboratory Results 03/30/17 13:46 Red Blood Count 3.64, Mean Corpuscular Volume 94.0, Mean Corpuscular Hemoglobin 31.6, Mean Corpuscular Hemoglobin Concent 33.6, Mean Platelet Volume 9.5, Neutrophils (%) (Auto) 79.5, Lymphocytes (%) (Auto) 10.2, Monocytes (%) (Auto) 7.7, Eosinophils (%) (Auto) 1.0, Basophils (%) (Auto) 0.1, Neutrophils # (Auto) 8.69, Lymphocytes # (Auto) 1.12, Monocytes # (Auto) 0.84, Eosinophils # (Auto) 0.11, Basophils # (Auto) 0.01 03/30/17 13:46 Test 03/30/17 12:35 03/30/17 13:46 03/30/17 16:39 03/30/17 17:27 Bedside Lactic Acid Venous 2.18 mmol/L (0.90-1.70) White Blood Count 10.93 K/uL (4.8-10.8) Red Blood Count 3.64 M/uL (4.2-5.4) Hemoglobin 11.5 g/dL (12.0-16.0) Hematocrit 34.2 % (37-47) Mean Corpuscular Volume 94.0 fL (80-100) Mean Corpuscular Hemoglobin 31.6 pg (25-34) Mean Corpuscular Hemoglobin Concent 33.6 g/dl (32-36) Platelet Count 264 K/uL (130-400) Mean Platelet Volume 9.5 fL (7.4-10.4) Neutrophils (%) (Auto) 79.5 % Lymphocytes (%) (Auto) 10.2 % Monocytes (%) (Auto) 7.7 % Eosinophils (%) (Auto) 1.0 % Basophils (%) (Auto) 0.1 % Neutrophils # (Auto) 8.69 K/uL (1.4-6.5) Lymphocytes # (Auto) 1.12 K/uL (1.2-3.4) Monocytes # (Auto) 0.84 K/uL (0.11-0.59) Eosinophils # (Auto) 0.11 K/uL (0-0.5) Basophils # (Auto) 0.01 K/uL (0-0.2) RDW Standard Deviation 58.2 fL (36.4-46.3) RDW Coefficient of Variation 16.8 % (11.5-14.5) Immature Granulocyte % (Auto) 1.5 % Immature Granulocyte # (Auto) 0.16 K/uL (0.00-0.02) Anion Gap 7.0 mmol/L (3-11) Est Creatinine Clear Calc Drug Dose 40.9 ml/min Estimated GFR () 41.9 Estimated GFR (Non- 36.2 BUN/Creatinine Ratio 34.8 (10-20) Lactic Acid Level 0.9 mmol/L (0.4-2.0) Calcium Level 9.0 mg/dl (8.5-10.1) Phosphorus Level 3.4 mg/dl (2.5-4.9) Magnesium Level 2.0 mg/dl (1.8-2.4) Total Bilirubin 0.4 mg/dl (0.2-1) Direct Bilirubin 0.2 mg/dl (0-0.2) Aspartate Amino Transf (AST/SGOT) 56 U/L (15-37) Alanine Aminotransferase (ALT/SGPT) 30 U/L (12-78) Alkaline Phosphatase 84 U/L (45-117) Troponin I 1.190 ng/ml (0-0.045) Pro-B-Type Natriuretic Peptide 8883 pg/ml (0-1800) Total Protein 7.4 gm/dl (6.4-8.2) Albumin 2.0 gm/dl (3.4-5.0) Lipase 792 U/L (73-393) Prothrombin Time 25.2 SECONDS (9.0-12.0) Prothromb Time International Ratio 2.3 (0.9-1.1) Laboratory results reviewed by me Medications Administered Medications (Trade) Dose Ordered Sig/Mariaelena Route Start Time Stop Time Status Last Admin Dose Admin Furosemide 20 mg/ Syringe 2 ml @ 4 mls/min NOW STAT IV 03/30/17 16:30 03/30/17 16:32 DC 03/30/17 17:04 4 MLS/MIN ECG Indication: weakness Rate (beats per minute): 85 Rhythm: atrial fibrillation Findings: PVC, T-wave inversion (Anterolateral, Inferior) Comparison ECG Date: 04/16/14 Change: New T- wave inversion in the setting of ventricular paced complexes. ED Course 1032: The patient was evaluated in room A9B. A complete history and physical exam was performed. 1602: I reevaluated the patient and she is doing okay. 1621: Ordered Zosyn Iv 3.375 gm IV. 1630: Ordered Furosemide 20 mg/Syringe 2 ml @ 4 mls/min IV, Vancomycin HCl 2000 mg/Sodium Chloride 540 ml @ 200 mls/hr IV. 1703: Ordered Aspirin 324 mg PO. 1704: Discussed the patient's case with Dr. Shaw. The patient will be evaluated for further treatment and disposition. Medical Decision I reviewed the patient's past medical history, medications, and the nursing notes as described above. Differential diagnoses include dehydration, electrolyte abnormalities, ACS, CHF , infection pulmonary vs urinary, early sepsis. The patient is a 77-year-old woman with a comp care past medical history of CHF , recent pacemaker placement, and recent question hematoma (secondary to Lovenox injections ) evacuation in the right lower quadrant since to emergency department with fatigue over the past several days, and fall onto her knees today after becoming weak and tremulous, seen by PCP and sent in for evaluation history of present illness. On arrival patient is chronically ill-appearing but in no acute distress. On exam the patient has mild erythema and warmth at the surgical site of her pacemaker placement (patient reports she recently completed antibiotics for this feels it is worse), patient's abdomen is soft with large anterior hernia and right lower quadrant wound VAC from recent procedure. Patient has 3+ bilateral pitting edema which she says is at her baseline. However since her fall patient reports significant bilateral hip knee and lower leg pain. X-rays notable for a hairline nondisplaced proximal fibular fracture otherwise negative for any acute fractures. Patient's EKG with atrial sensed V paced rhythm without signs of acute ischemia. Troponin elevated 1.1 however in setting of prior chronic troponin elevations to 1.2. Additionally patient appears to have mild CHF at this time with BNP elevated to 8000 up from 1999 in November.. Considering this, unclear if the troponin elevation is related to acute OK versus demand in the setting of her CHF. Considering the patient denies any chest pain will trend tropponin and if rising heparinize. Otherwise patient has a mild leukocytosis at 10 and the setting of concern for cellulitis of her pacemaker surgical site. Possible that patient's cellulitis and exacerbated the patient's CHF. No treat the patient empirically with thank and Zosyn and attempt gentle diuresis. Case was discussed with hospital medicine who will admit the patient to medicine service for further management. Medication Reconcilliation Current Medication List: was personally reviewed by me Blood Pressure Screening Patient's blood pressure: Normal blood pressure Blood pressure disposition: Did not require urgent referral Consults Time Called: 1632 Consulting Physician: Dr. Shaw- Internal Medicine Returned Call: [phone] Discussed the patient's case with Dr. Shaw. The patient will be evaluated for further treatment and disposition. Impression Primary Impression: CHF (congestive heart failure) Additional Impression: Cellulitis Scribe Attestation The scribe's documentation has been prepared under my direction and personally reviewed by me in its entirety. I confirm that the note above accurately reflects all work, treatment, procedures, and medical decision making performed by me. Departure Information Dispostion Being Evaluated By Hospitalist Referrals Jeremie Parmar M.D. (PCP) Patient Instructions My [facility] Problem Qualifiers
[2017-03-30] MEDS ORDERED: WARF4TAB8 PO (11:11)
[2017-03-30] MEDS ORDERED: WARF-285 PO (11:11)
--- NOTE | 2017-03-30 12:19 | DIAGNOSTIC IMAGING REPORT ---
RIGHT KNEE 3 VIEWS CLINICAL HISTORY: Right knee pain. Trauma. COMPARISON: None. DISCUSSION: There are moderately advanced osteoarthritic changes. There is medial joint compartment narrowing and spurring. There are dorsal patellar spurs. There are no acute fractures. IMPRESSION: Moderately advanced osteoarthritic change. No acute fractures. Electronically signed by: Cornelius Morin M.D. 03/30/2017 12:17 PM Dictated Date/Time: 03/30/2017 12:16 PM
--- NOTE | 2017-03-30 12:20 | DIAGNOSTIC IMAGING REPORT ---
LEFT TIBIA/FIBULA 2 VIEWS ROUTINE CLINICAL HISTORY: Pain. Trauma COMPARISON: None. DISCUSSION: There are osteoarthritic changes within the knee. No acute fractures are visualized. There is Achilles insertional calcification. IMPRESSION: No acute fractures identified. Electronically signed by: Cornelius Morin M.D. 03/30/2017 12:18 PM Dictated Date/Time: 03/30/2017 12:17 PM
--- NOTE | 2017-03-30 12:21 | DIAGNOSTIC IMAGING REPORT ---
RIGHT TIBIA/FIBULA 2 VIEWS ROUTINE CLINICAL HISTORY: Pain. Trauma. COMPARISON: None. DISCUSSION: There are osteophytic changes involving the knee. There are Achilles insertional calcifications. There is irregularity of the medial malleolus. This is age-indeterminate. If the patient has ankle symptomatology, dedicated views of the ankle should be considered in follow-up. IMPRESSION: 1. Osteoarthritic changes involving the knee 2. Age-indeterminate irregularity of the medial malleolus of the distal tibia. If the patient has ankle symptomatology, dedicated views of the ankle should be considered in follow-up Electronically signed by: Cornelius Morin M.D. 03/30/2017 12:20 PM Dictated Date/Time: 03/30/2017 12:18 PM
--- NOTE | 2017-03-30 12:22 | DIAGNOSTIC IMAGING REPORT ---
LEFT KNEE 3 VIEWS CLINICAL HISTORY: pain pain COMPARISON: None. DISCUSSION: Significant degenerative change medial joint compartment as well as patellofemoral joint. Moderate reactive osteophytic change throughout. No significant joint effusion. Nondisplaced cortical fracture proximal fibula. IMPRESSION: 1. Degenerative change primarily of the medial and patellofemoral joint compartments. 2. Nondisplaced hairline fracture proximal fibular shaft. The above report was generated using voice recognition software. It may contain grammatical, syntax or spelling errors. Electronically signed by: Gilmer Frausto M.D. 03/30/2017 12:20 PM Dictated Date/Time: 03/30/2017 12:18 PM
--- NOTE | 2017-03-30 12:24 | DIAGNOSTIC IMAGING REPORT ---
PELVIS/BILATERAL HIP 2 VIEWS CLINICAL HISTORY: b/l hip pain pain COMPARISON STUDY: None FINDINGS: Severe degenerative change right hip. Deformity and sclerosis of the femoral head. Probable underlying dysplastic change. Moderate degenerative change left hip. No evidence for fracture. Moderate degenerative change sacroiliac joints with moderate degenerative change of the low lumbar spine. IMPRESSION: 1. Severe degenerative change right hip with probable underlying dysplastic change. 2. Moderate degenerative change left hip. 3. No acute abnormality The above report was generated using voice recognition software. It may contain grammatical, syntax or spelling errors. Electronically signed by: Gilmer Frausto M.D. 03/30/2017 12:22 PM Dictated Date/Time: 03/30/2017 12:20 PM
[2017-03-30 14:09] LABS: BASO % 0.1 %; BASO ABS # 0.01 K/uL (0-0.2); COMPLETE YES; HEMATOCRIT 34.2 % (37-47); IG% 1.5 %; LYMPH % 10.2 %; LYMPH ABS # 1.12 K/uL (1.2-3.4); MEAN CORPUSCULAR HEMOGLOBIN 31.6 pg (25-34); MEAN CORPUSCULAR HGB CONC 33.6 g/dl (32-36); MEAN PLATELET VOLUME 9.5 fL (7.4-10.4); MONO % 7.7 %; NEUT % 79.5 %; PLATELET COUNT 264 K/uL (130-400); RED BLOOD COUNT 3.64 M/uL (4.2-5.4); WHITE BLOOD COUNT 10.93 K/uL (4.8-10.8)
[2017-03-30 14:24] LABS: BUN/CREATININE RATIO 34.8 (10-20); CREATININE 1.4 mg/dl (0.60-1.20); POTASSIUM 4.6 mmol/L (3.5-5.1)
[2017-03-30 14:39] LABS: PHOSPHORUS 3.4 mg/dl (2.5-4.9)
[2017-03-30] MEDS ORDERED: PIPERACILLIN/TAZOBACTAM 3.375 GM/100ML D5W IV STA (16:21)
[2017-03-30] MEDS ORDERED: VANCOMYCIN INJ 2,000 MG in SODIUM CHLORIDE 0.9% 500ML 500 ML IV SCH (16:30)
[2017-03-30] MEDS ORDERED: FUROSEMIDE INJ 20 MG in SYRINGE 0 ML IV STA (16:30)
[2017-03-30] MEDS ORDERED: FUROSEMIDE 40 MG/4 ML VIAL ONE (16:39)
[2017-03-30 17:00] LABS: INR 2.3 (0.9-1.1); PROTHROMBIN TIME (PATIENT) 25.2 SECONDS (9.0-12.0)
[2017-03-30] MEDS ORDERED: ASPIRIN 81 MG CHEW PO STA (17:03)
[2017-03-30 17:59] LABS: URINE APPEARANCE CLOUDY (CLEAR); URINE BILIRUBIN NEG (NEG); URINE COLOR YELLOW; URINE EPITHELIAL CELL AUTO >30 /lpf (0-5); URINE NITRITE NEG (NEG); URINE SPECIFIC GRAVITY 1.017 (1.000-1.030); UROBILINOGEN NEG (NEG); ZZUR CULT IF INDIC CLEAN CATCH YES
--- NOTE | 2017-03-30 18:06 | History and Physical ---
History & Physical Date & Time of Service: Mar 30, 2017 at 17:53 Chief Complaint: Hypotension/Afib Primary Care Physician: Jeremie Parmar M.D. History of Present Illness This is a 77 yo F with PMHx of HTN, chronic afib, on coumadin, multip DVTs, PVD , carotid stenosis s/p R CEA, hypothyroidism. The pt underwent elective colonoscopy on November 28 where she required being bridged with lovenox, due to history of atrial fib. She developed a large right lower abdomen hematoma. She was transferred at that time to [facility] where was also found to have DVT in the Right axillary and subclavian veins. She was placed back on lovenox bridge to warfarin.After this the pt developed redness around the abdominal incision. She required readmission from December 16 for cellulitis of the abdominal wall, was given IV abx and infection which resolved. She was again admitted from Jan 15 with MRSA and pseudomonas sepsis requiring iv abx. They determined she had necrotizing cellulitis where she required an extended IV antibiotic tx where she had a PICC line placed, the PICC line has since been removed. Most recently she was admitted here at [facility] on February 24 with sepsis of the abdominal wall. She had a wound vac on the RLQ abdomen, and has home health services [place] this 2-3x per week. A unipolar pacemaker was placed approximately [address] Wagoner at [place], she follows with Reanna Esparza with cardiology. Since then her pacemaker site has not truly healed. The patient was seen by cardiology in [place] last , where her pacemaker site was noticed to have surrounding erythema, so was placed on an antibiotic (pt/family cannot recall the name) x 3 days. On Monday through Monday the pt developed a GI illness where she was vomiting x 2 days. She was unable to take any of her medications during that time so the antibiotic was not started until Monday. The patient collapsed on Monday due to weakness while walking. Her caught her, she denies LOC/dizziness or trauma to the head. Since then she has had severe bilateral lower leg pain. Yesterday home health was visiting for wound vac change, and noticed hives on her legs so told her to go see the PCP. Today at Dr. Cody office she was noted to be hypotensive with BP 77/56 and and EKG with possible ST wave inversion. She Admits to feeling weak and having chills, denies fevers and sweats. Past Medical/Surgical History HTN chronic afib on coumadin multiple DVTs\\ PVD carotid stenosis s/p R CEA hypothyroidism Pacemaker Surgical Hx Pacemaker insertion January 2017 Appendectomy Cartoid endarterectomy cataract surgery total abdominal hysterectomy vericose vein ligation Family History Family history was reviewed; no changes noted. Social History Smoking Status: Never Smoker Smokeless Tobacco Use: No Drug Use: none Marital Status: Occupational Status: retired Allergies Coded Allergies: Oxytetracycline (Verified Allergy, Intermediate, "felt like a big ball in my stomach", 02/24/17) Polymyxin B (Verified Allergy, Intermediate, "felt like a big ball in my stomach", 02/24/17) Home Medications Scheduled Aspirin (Aspirin EC Low Dose), 81 MG PO QAM Atorvastatin (Atorvastatin Calcium), 80 MG PO QAM Cholecalciferol (Vitamin D 1000 Unit), 1,000 INTER.UNIT PO DAILY Citalopram (Citalopram Hydrobromide), 20 MG PO DAILY Digoxin (Digoxin), 1 TAB PO DAILY Levothyroxine Sodium (Levothyroxine Sodium), 88 MCG PO DAILY Lisinopril (Lisinopril), 20 MG PO DAILY Metoprolol Tartrate (Lopressor), 50 MG PO BID Potassium Chloride Microencaps (Potassium Chloride Er), 1 TAB PO DAILY Warfarin Sod (Jantoven), 4 MG PO 2XWK Warfarin Sodium (Warfarin Sodium), 3 MG PO 5XWK Scheduled PRN Lorazepam (Ativan), 0.5 MG PO TID PRN for as needed Review of Systems Constitutional: + chills, + weakness, + fatigue, No fever, No sweats Eyes: No worsening of vision, No diplopia ENT: No sore throat, No trouble swallowing Respiratory: + shortness of breath, + dyspnea on exertion, No cough, No sputum , No wheezing, No dyspnea at rest Cardiovascular: No chest pain, No palpitations Abdomen: No pain, No nausea, No diarrhea, No constipation, No GI bleeding Musculoskeletal: + swelling, + calf pain (chronic), No joint pain Neurologic: + memory loss, + weakness, No numbness/tingling Psychiatric: No depression symptoms, No anxiety Endocrine: No fatigue Hematologic / Lymphatic: No abnormal bleeding/bruising Integumentary: No rash, No itch Physical Exam Vital Signs Date Time Temp Pulse Resp B/P (MAP) Pulse Ox O2 Delivery O2 Flow Rate FiO2 03/30/17 17:17 91 03/30/17 16:45 93 17 96 Room Air 03/30/17 16:15 122 14 03/30/17 15:45 83 17 96 03/30/17 15:15 88 19 97 03/30/17 14:45 88 18 96 03/30/17 14:40 82 21 97 Room Air 03/30/17 14:10 98 28 93 03/30/17 13:40 101 23 92 03/30/17 13:35 101 26 03/30/17 13:17 99 03/30/17 13:05 80 22 97 Room Air 03/30/17 13:00 126/68 03/30/17 12:46 90 25 96 Room Air 03/30/17 12:41 98 24 96 Room Air 03/30/17 12:39 116/77 03/30/17 11:01 124/64 03/30/17 10:41 95 20 03/30/17 10:29 93 03/30/17 10:28 36.6 95 18 118/56 97 Room Air 03/30/17 10:22 118/56 03/30/17 10:20 96 Room Air General Appearance: WD/WN, no apparent distress, + obese Head: normocephalic, atraumatic Eyes: PERRL, EOMI ENT: hearing grossly normal, pharynx normal, + pertinent finding (mucous membranes dry) Neck: supple, no JVD Respiratory/Chest: chest non-tender, lungs clear, no respiratory distress, no accessory muscle use, + pertinent finding (R chest wall + necrotic lesions with minimally surrounding erythema) Cardiovascular: + systolic murmur (grade III/), + irregularly irregular, + pertinent finding (bounding peripheral pulses) Abdomen/GI: soft, + pertinent finding (+ hypoactive bs, + abdominal wound vac in place over the RLQ, + large abdominal hernia in the LLQ) Back: no CVA tenderness Extremities/Musculoskelatal: no calf tenderness, no pedal edema, + pedal edema (2+ pitting edema, worse in the R compared to the L) Neurologic/Psych: alert, normal reflexes, oriented x 3 Skin: normal color, warm/dry Diagnostics Laboratory Results Results Past 24 Hours Test 03/30/17 12:35 03/30/17 13:46 03/30/17 16:39 03/30/17 17:27 Range/Units Bedside Lactic Acid Venous 2.18 0.90-1.70 mmol/L White Blood Count 10.93 4.8-10.8 K/uL Red Blood Count 3.64 4.2-5.4 M/uL Hemoglobin 11.5 12.0-16.0 g/dL Hematocrit 34.2 37-47 % Mean Corpuscular Volume 94.0 80-100 fL Mean Corpuscular Hemoglobin 31.6 25-34 pg Mean Corpuscular Hemoglobin Concent 33.6 32-36 g/dl Platelet Count 264 130-400 K/uL Mean Platelet Volume 9.5 7.4-10.4 fL Neutrophils (%) (Auto) 79.5 % Lymphocytes (%) (Auto) 10.2 % Monocytes (%) (Auto) 7.7 % Eosinophils (%) (Auto) 1.0 % Basophils (%) (Auto) 0.1 % Neutrophils # (Auto) 8.69 1.4-6.5 K/uL Lymphocytes # (Auto) 1.12 1.2-3.4 K/uL Monocytes # (Auto) 0.84 0.11-0.59 K/uL Eosinophils # (Auto) 0.11 0-0.5 K/uL Basophils # (Auto) 0.01 0-0.2 K/uL RDW Standard Deviation 58.2 36.4-46.3 fL RDW Coefficient of Variation 16.8 11.5-14.5 % Immature Granulocyte % (Auto) 1.5 % Immature Granulocyte # (Auto) 0.16 0.00-0.02 K/uL Sodium Level 135 136-145 mmol/L Potassium Level 4.6 3.5-5.1 mmol/L Chloride Level 103 98-107 mmol/L Carbon Dioxide Level 25 21-32 mmol/L Anion Gap 7.0 3-11 mmol/L Blood Urea Nitrogen 49 7-18 mg/dl Creatinine 1.40 0.60-1.20 mg/dl Est Creatinine Clear Calc Drug Dose 40.9 ml/min Estimated GFR () 41.9 Estimated GFR (Non- 36.2 BUN/Creatinine Ratio 34.8 10-20 Random Glucose 98 70-99 mg/dl Lactic Acid Level 0.9 0.4-2.0 mmol/L Calcium Level 9.0 8.5-10.1 mg/dl Phosphorus Level 3.4 2.5-4.9 mg/dl Magnesium Level 2.0 1.8-2.4 mg/dl Total Bilirubin 0.4 0.2-1 mg/dl Direct Bilirubin 0.2 0-0.2 mg/dl Aspartate Amino Transf (AST/SGOT) 56 15-37 U/L Alanine Aminotransferase (ALT/SGPT) 30 12-78 U/L Alkaline Phosphatase 84 45-117 U/L Troponin I 1.190 0-0.045 ng/ml Pro-B-Type Natriuretic Peptide 8883 0-1800 pg/ml Total Protein 7.4 6.4-8.2 gm/dl Albumin 2.0 3.4-5.0 gm/dl Lipase 792 73-393 U/L Prothrombin Time 25.2 9.0-12.0 SECONDS Prothromb Time International Ratio 2.3 0.9-1.1 Microbiology Results 03/30/17 Blood Culture, Received Pending 03/30/17 Blood Culture, Received Pending Diagnostic Radiology CHEST ONE VIEW PORTABLE CLINICAL HISTORY: CHEST PAIN dyspnea COMPARISON STUDY: 04/16/2014 FINDINGS: Permanent unipolar cardiac pacemaker. Lungs are clear. Chronic right hilar fullness. Diaphragms are smooth. IMPRESSION: No acute process. Chronic changes as noted The above report was generated using voice recognition software. It may contain grammatical, syntax or spelling errors. Electronically signed by: Gilmer Frausot M.D. 03/30/2017 10:52 AM Dictated Date/Time: 03/30/2017 10:52 AM The status of this report is Signed. LEFT TIBIA/FIBULA 2 VIEWS ROUTINE CLINICAL HISTORY: Pain. Trauma COMPARISON: None. DISCUSSION: There are osteoarthritic changes within the knee. No acute fractures are visualized. There is Achilles insertional calcification. IMPRESSION: No acute fractures identified. Electronically signed by: Cornelius Morin M.D. 03/30/2017 12:18 PM Dictated Date/Time: 03/30/2017 12:17 PM The status of this report is Signed. RIGHT TIBIA/FIBULA 2 VIEWS ROUTINE CLINICAL HISTORY: Pain. Trauma. COMPARISON: None. DISCUSSION: There are osteophytic changes involving the knee. There are Achilles insertional calcifications. There is irregularity of the medial malleolus. This is age-indeterminate. If the patient has ankle symptomatology, dedicated views of the ankle should be considered in follow-up. IMPRESSION: 1. Osteoarthritic changes involving the knee 2. Age-indeterminate irregularity of the medial malleolus of the distal tibia. If the patient has ankle symptomatology, dedicated views of the ankle should be considered in follow-up Electronically signed by: Cornelius oMrin M.D. 03/30/2017 12:20 PM Dictated Date/Time: 03/30/2017 12:18 PM The status of this report is Signed. RIGHT KNEE 3 VIEWS CLINICAL HISTORY: Right knee pain. Trauma. COMPARISON: None. DISCUSSION: There are moderately advanced osteoarthritic changes. There is medial joint compartment narrowing and spurring. There are dorsal patellar spurs. There are no acute fractures. IMPRESSION: Moderately advanced osteoarthritic change. No acute fractures. Electronically signed by: Cornelius Morin M.D. 03/30/2017 12:17 PM Dictated Date/Time: 03/30/2017 12:16 PM The status of this report is Signed. PELVIS/BILATERAL HIP 2 VIEWS CLINICAL HISTORY: b/l hip pain pain COMPARISON STUDY: None FINDINGS: Severe degenerative change right hip. Deformity and sclerosis of the femoral head. Probable underlying dysplastic change. Moderate degenerative change left hip. No evidence for fracture. Moderate degenerative change sacroiliac joints with moderate degenerative change of the low lumbar spine. IMPRESSION: 1. Severe degenerative change right hip with probable underlying dysplastic change. 2. Moderate degenerative change left hip. 3. No acute abnormality The above report was generated using voice recognition software. It may contain grammatical, syntax or spelling errors. Electronically signed by: Gilmer Frausto M.D. 03/30/2017 12:22 PM Dictated Date/Time: 03/30/2017 12:20 PM The status of this report is Signed. LEFT KNEE 3 VIEWS CLINICAL HISTORY: pain pain COMPARISON: None. DISCUSSION: Significant degenerative change medial joint compartment as well as patellofemoral joint. Moderate reactive osteophytic change throughout. No significant joint effusion. Nondisplaced cortical fracture proximal fibula. IMPRESSION: 1. Degenerative change primarily of the medial and patellofemoral joint compartments. 2. Nondisplaced hairline fracture proximal fibular shaft. The above report was generated using voice recognition software. It may contain grammatical, syntax or spelling errors. Electronically signed by: Gilmer Frausto M.D. 03/30/2017 12:20 PM Dictated Date/Time: 03/30/2017 12:18 PM The status of this report is Signed. EKG Vent. rate 85 BPM OK interval * ms QRS duration 88 ms QT/QTc 384/456 ms P-R-T axes * -27 -66 Atrial fibrillation with occasional ventricular-paced complexes Minimal voltage criteria for LVH, may be normal variant ST & T wave abnormality, consider anterolateral ischemia Abnormal ECG When compared with ECG of 16-APR-2014 00:15, T wave inversion now evident in anterolateral and inferior leads Ventricular paced compelases are now present Confirmed by TAI RAPP ([id number]) on 03/30/2017 1:10:39 PM Impression Assessment and Plan This is a 77 yo F with PMHx of HTN, chronic afib, on coumadin, multip DVTs, PVD , carotid stenosis s/p R CEA, hypothyroidism, s/p pacemaker insertion and MRSA/ pseudomonas abdominal wound with vac in place presenting with hypotension, questionable EKG changes, and weakness in the setting of multiple recent hospital admissions Sepsis - lactic acidosis - Admit to tele - Blood cultures in process, lactic acid elevated at time of presentation to the ED, will recheck LA, check sed rate. - Started on vancomycin and zosyn, continue - Consult infectious disease for abx recommendations - Pt BP appears to have improved compared to outpatient reading of 77/51 to 120s now. Pt did not receive fluids with elevated BNP. Consider fluids if bp begins to drop again although she does appear to be third spacing in BLE. - WBC mildly elevated at 10.93, afebrile, other VSS. - Checking MRSA swab with hx. Multiple nosocomial infectious possibilities. - Cardiology consult for evaluation of pacemaker and possible source of infection as site is nonhealing for at least 1 month now. EKG reviewed. Noted elevated troponin. - Wound consult for abdominal wound vac - ? hives over the left leg with recent antibiotic use? Unknown antibiotic x 3 days for pacemaker site erythema. - Checking UA and Ucx Elevated troponin/ elevated BNP - Possible a demand ischemia mismatch - Will trend trop x 2 more sets, BNP was elevated and the pt got lasix 20 mg IV in the ED. - Consult cardiology Chronic Atrial fibrillation - Continue coumadin - INR 2.3, monitor daily coags HTN - holding lisinopril and metoprolol with hypotension - Monitor BPs in tele [place] - Cr is mildly elevated at 1.4, baseline appears to be 0.9-1.0 - Holding lasix for possible sepsis. Elevated Lipase - Trend am labs, no abdominal pain currently. Left Nondisplaced hairline fracture proximal fibular shaft - S/p fall, no acute interventions for this fracture DVT: coumadin, scds CODE STATUS: FULL CODE Disposition: From home, has home health services in place [place] Physician Supervision Note: I interviewed and examined the patient. Discussed with Lillie Dougherty PAC and agree with findings and plan as documented in the note. Any exceptions or clarifications are listed here: None Patient presented from her doctor's office with EKG changes and hypotension she has a chronic nonhealing pacemaker insertion and then a large right flank wound with a wound VAC that she sustained during her admission for the pacemaker from reportedly a hematoma from Lovenox injection. The patient herself feels weak and tired has no focal complaints or problems and was sent here from her PCPs office to possible EKG change. Her vital signs were slightly low blood pressure she however was given Lasix in the ER Cardiac exam is regular with a systolic murmur sternal border her right upper chest wound has a 1 cm eschar in the lower pole of the pacemaker wound the wound is mildly erythematous she has a large right abdomen wound VAC in place Lungs are clear without wheezes or crackles is no JVD Abdomen is there is no fluctuance or erythema surrounding the wound The patient has chronic venous stasis changes of the lower extremities which could also be a portal for infection 77-year-old female here with weakness hypotension and concern for possible skin infection pacemaker site The patient be brought in for facility cultures be undertaken wound care will see both wounds trend cardiac enzymes place and vancomycin and Zosyn Possible non-displaced fibular fracture if clinically painful consider orthopedic evaluation Atrial fibrillation pacemaker cardiology be consulted to determine if the pacemaker is infected perhaps also involving infectious disease continue rate controlling meds but holding any antihypertensive meds given her relative hypotension on presentation. Her INR is therapeutic we'll continue dosing as per outpatient Documented By: Ze Shaw Level of Care Telemetry Resuscitation Status FULL RESUSCITATION VTE Prophylaxis Risk Level: Very Low Given or contraindicated: Warfarin (Coumadin), T.E.D. Stockings, SCD's
[2017-03-30 18:11] LABS: MANUAL MICROSCOPIC REQUIRED? NO; REVIEW REQ? YES
[2017-03-30] MEDS ORDERED: ACETAMINOPHEN 325 MG TAB PO PRN (18:45)
[2017-03-30] MEDS ORDERED: POLYETHYLENE (MIRALAX) 17 GM PACK PO PRN (18:45)
[2017-03-30] MEDS ORDERED: ONDANSETRON INJ 2 MG/ML 2 ML VIAL IV PRN (18:45)
[2017-03-30 19:41] VITALS: BP 104/68; PULSE 87; TEMP 36.6; O2SAT 100; Ht 165.1 cm; Wt 102.6 kg
[2017-03-30 23:33] VITALS: BP 107/71; PULSE 76; TEMP 36.4; O2SAT 99
[2017-03-30] MEDS: PIPERACILL/TAZOBAC IV 4.5 GM in DEXTROSE 5% 100ML 100 ML IV SCH (23:39)
[2017-03-31] MEDS ORDERED: VANCOMYCIN CONSULT ACTIVE PRN (03:15)
[2017-03-31] MEDS ORDERED: PIPERACILL/TAZOBAC CONSULT ACTIVE PRN (03:15)
[2017-03-31 03:44] VITALS: BP 139/73; PULSE 79; TEMP 36.4; O2SAT 98
[2017-03-31 04:12] LABS: BASO % 0.3 %; BASO ABS # 0.02 K/uL (0-0.2); COMPLETE YES; EOS % 5.7 %; HEMATOCRIT 30.7 % (37-47); IG% 1.6 %; LYMPH % 15.7 %; LYMPH ABS # 1.21 K/uL (1.2-3.4); MEAN CELL VOLUME 94.5 fL (80-100); MEAN CORPUSCULAR HEMOGLOBIN 30.5 pg (25-34); MEAN CORPUSCULAR HGB CONC 32.2 g/dl (32-36); MEAN PLATELET VOLUME 9.2 fL (7.4-10.4); MONO % 9.7 %; PLATELET COUNT 257 K/uL (130-400); RED BLOOD COUNT 3.25 M/uL (4.2-5.4); WHITE BLOOD COUNT 7.73 K/uL (4.8-10.8)
[2017-03-31 04:24] LABS: INR 2.7 (0.9-1.1); PARTIAL THROMBOPLASTIN RATIO 1.7; PROTHROMBIN TIME (PATIENT) 30.3 SECONDS (9.0-12.0)
[2017-03-31 04:31] LABS: BUN/CREATININE RATIO 31.9 (10-20); CALCIUM 8.4 mg/dl (8.5-10.1); CREATININE 1.3 mg/dl (0.60-1.20); POTASSIUM 4.3 mmol/L (3.5-5.1)
[2017-03-31 04:42] LABS: CHOLESTEROL/HDL RATIO 2.9
[2017-03-31] MEDS ORDERED: LEVOTHYROXINE 88 MCG TAB PO SCH (06:00)
[2017-03-31 06:29] LABS: ESTIMATED AVERAGE GLUCOSE 111 mg/dl; HA1C FLAG Normal (Normal)
[2017-03-31 07:20] VITALS: BP 129/72; PULSE 89; TEMP 36.4; O2SAT 94
[2017-03-31] MEDS: PIPERACILL/TAZOBAC IV 4.5 GM in DEXTROSE 5% 100ML 100 ML IV SCH (07:43)
[2017-03-31] MEDS ORDERED: CITALOPRAM 20 MG TAB PO SCH (09:00)
[2017-03-31] MEDS ORDERED: CHOLECALCIFEROL 1000 INTER.UNIT TAB PO SCH (09:00)
[2017-03-31] MEDS ORDERED: POTASSIUM CHLORIDE 20 MEQ TABCR PO SCH (09:00)
[2017-03-31] MEDS ORDERED: ATORVASTATIN 40 MG TAB PO SCH (09:00)
[2017-03-31] MEDS ORDERED: ASPIRIN 81 MG ECTAB PO SCH (09:00)
--- NOTE | 2017-03-31 10:31 | Cardiology Consultation ---
Cardiology Consultation Date of Consultation: Mar 31, 2017. Requesting Physician: Eyad Reason for Consultation: Possible pacemaker infection History of Present Illness The patient is a 77-year-old female who has had multiple hospital admissions over the past few months for a variety of indications. It seems most of her problems began when she was being administered Lovenox as a bridge for anticoagulation to facilitate colonoscopy. She developed a abdominal hematoma related to a Lovenox injection, and subsequently required transfusion and drainage. He subsequently developed a variety of complications to include an abdominal infection requiring debridement and wound VAC placement, as well as a PICC line infection and right arm DVT. By her report during her admission for wound management at [facility] in [place], she developed ventricular pauses requiring pacemaker implantation. Leading up to this implant she did not describe symptoms of dizziness or lightheadedness. She does not describe syncope. She has had follow-up with the implanting physician and reports that he was not completely satisfied with the wound healing. She cannot recall feeling notably better subsequent to pacemaker implantation. She is not describing any pain at the implant site. The patient has continued to have symptoms of weakness. She also describes some subjective fevers and chills recently. She suffered a fall a few days ago related to gait instability and weakness. She generally uses a walker but has noted that her legs and arms are shaking when she attempts to ambulate at times. She does have an element of dyspnea on exertion which appears fairly chronic and not worse lately. She did not describe overt orthopnea but does sleep in a recliner. She has done this for many years and currently she sleeps in a chair which also assists with her getting out of the chair. She feels that she may have an element of lower extremity edema but freely admits that she rarely looks at her legs. She is not currently aware of any palpitations. She is not reporting any symptoms of chest discomfort. Past Medical/Surgical History 1. Atrial fibrillation, permanent 2. Aortic stenosis, severe based on most recent echocardiogram 3. Carotid artery disease, status post bilateral carotid endarterectomy 4. Hyperlipidemia 5. Hypothyroidism 6. Anxiety and depression 7. History of DVT involving the right upper extremity 8. 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 Bilateral carotid endarterectomies right in 2012 and left in 2014 2. Wound VAC implantation for abdominal wound 3. Single-chamber [employer] pacemaker implantation February 09, 2017 4. Appendectomy 5. Hysterectomy 6. Lower extremity venous ligation Family History Cancer Diabetes mellitus Heart disease Hypertension Essentially noncontributory Social History Smoking Status: Never Smoker History of Alcohol Use: No Review of Systems Constitutional: + see HPI Respiratory: + see HPI Cardiac: + see HPI Abdomen: + see HPI Female : + see HPI Neurologic: + see HPI Heme: + see HPI Endo: + see HPI Skin: + see HPI All Other Systems: Reviewed and Negative Allergies Coded Allergies: Oxytetracycline (Verified Allergy, Intermediate, "felt like a big ball in my stomach", 02/24/17) Polymyxin B (Verified Allergy, Intermediate, "felt like a big ball in my stomach", 02/24/17) Medications Current Inpatient Medications Medications (Trade) Dose Ordered Sig/Mariaelena Route Start Time Stop Time Status Last Admin Dose Admin Acetaminophen (Tylenol Tab) 650 mg Q4H PRN PO 03/30/17 18:45 04/29/17 18:44 Ondansetron HCl (Zofran Inj) 4 mg Q6H PRN IV 03/30/17 18:45 04/29/17 18:44 Polyethylene (Miralax Powder Packet) 17 gm DAILY PRN PO 03/30/17 18:45 04/29/17 18:44 Aspirin (Ecotrin Tab) 81 mg QAM PO 03/31/17 09:00 04/30/17 08:59 03/31/17 07:43 81 MG Atorvastatin Calcium (Lipitor Tab) 80 mg QAM PO 03/31/17 09:00 04/30/17 08:59 03/31/17 07:43 80 MG Cholecalciferol (Vitamin D Tab) 1,000 inter.unit DAILY PO 03/31/17 09:00 04/30/17 08:59 03/31/17 07:43 1,000 INTER.UNIT Citalopram Hydrobromide (celeXA TAB) 20 mg DAILY PO 03/31/17 09:00 04/30/17 08:59 03/31/17 07:44 20 MG Digoxin (Lanoxin Tab) 0.25 mg DAILY@1600 PO 03/31/17 16:00 04/30/17 15:59 Levothyroxine Sodium (Synthroid Tab) 88 mcg DAILYBB PO 03/31/17 06:00 04/30/17 06:59 03/31/17 06:03 88 MCG Potassium Chloride (Klor-Con Tab) 20 meq DAILY PO 03/31/17 09:00 04/30/17 08:59 03/31/17 07:43 20 MEQ Warfarin Sodium (Coumadin Tab) 4 mg DAILY@1600 PO 03/31/17 16:00 04/30/17 15:59 Vancomycin HCl 1500 mg/Sodium Chloride 530 ml @ 200 mls/hr Q24H IV 03/31/17 14:00 04/10/17 13:59 Piperacillin Sod/ Tazobactam Sod 4.5 gm/Dextrose 120 ml @ 30 mls/hr Q8H IV 03/31/17 00:00 04/06/17 17:59 03/31/17 07:43 30 MLS/HR Piperacillin Sod/ Tazobactam Sod (Consult) 1 ea UD PRN N/A 03/31/17 03:15 04/30/17 03:14 Vancomycin HCl (Consult) 1 ea UD PRN N/A 03/31/17 03:15 04/30/17 03:14 Physical Exam Vital Signs Past 12 Hours Date Time Temp Pulse Resp B/P (MAP) Pulse Ox O2 Delivery O2 Flow Rate FiO2 03/31/17 07:20 36.4 89 20 129/72 (91) 94 Room Air 03/31/17 04:00 Room Air 03/31/17 03:44 36.4 79 18 139/73 (95) 98 Room Air 03/31/17 00:00 Room Air 03/30/17 23:33 36.4 76 21 107/71 (83) 99 Room Air She is alert and oriented x3. Mood affect appear normal. She answered all questions appropriately. HEENT: Sclerae are anicteric. Pupils are equal and reactive to light and accommodation. Extraocular movements were intact. Neuro: Cranial nerves intact Neck: Examination of the submandibular region did not reveal any significant lymphadenopathy. Carotids are palpable bilaterally and free of bruits on auscultation. There was no evidence of jugular venous distention. The thyroid was not enlarged. Lungs: Lungs are clear to auscultation bilaterally. There are no rales wheezes or rhonchi. She has normal respiratory effort without use of accessory muscles. There is normal pulmonary excursion. Cardiac: The rhythm was irregular. S1 and S2 were normal. High-pitched and late peaking crescendo systolic murmur of variable intensity. The PMI was not markedly displaced on palpation. Chest: There was a pacemaker implantation site in the right upper chest area. The pocket itself was not erythematous. There was a large eschar on the lateral margin of the incision. Upon removal there was an obvious fistulous track with purulent drainage communicating with the underlying pacemaker. Abdomen: Wound VAC in place. Extremities: Patient has bilateral radial pulses that are equal in intensity. There is no evidence cyanosis or clubbing. Lower extremities are markedly edematous. Skin: Patient has a macular rash on her legs. Data Laboratory Results: Last 24 Hours Test 03/30/17 12:35 03/30/17 13:46 03/30/17 16:39 03/30/17 17:27 Bedside Lactic Acid Venous 2.18 mmol/L White Blood Count 10.93 K/uL Red Blood Count 3.64 M/uL Hemoglobin 11.5 g/dL Hematocrit 34.2 % Mean Corpuscular Volume 94.0 fL Mean Corpuscular Hemoglobin 31.6 pg Mean Corpuscular Hemoglobin Concent 33.6 g/dl Platelet Count 264 K/uL Mean Platelet Volume 9.5 fL Neutrophils (%) (Auto) 79.5 % Lymphocytes (%) (Auto) 10.2 % Monocytes (%) (Auto) 7.7 % Eosinophils (%) (Auto) 1.0 % Basophils (%) (Auto) 0.1 % Neutrophils # (Auto) 8.69 K/uL Lymphocytes # (Auto) 1.12 K/uL Monocytes # (Auto) 0.84 K/uL Eosinophils # (Auto) 0.11 K/uL Basophils # (Auto) 0.01 K/uL RDW Standard Deviation 58.2 fL RDW Coefficient of Variation 16.8 % Immature Granulocyte % (Auto) 1.5 % Immature Granulocyte # (Auto) 0.16 K/uL Erythrocyte Sedimentation Rate > 90 mm/hr Sodium Level 135 mmol/L Potassium Level 4.6 mmol/L Chloride Level 103 mmol/L Carbon Dioxide Level 25 mmol/L Anion Gap 7.0 mmol/L Blood Urea Nitrogen 49 mg/dl Creatinine 1.40 mg/dl Est Creatinine Clear Calc Drug Dose 40.9 ml/min Estimated GFR () 41.9 Estimated GFR (Non- 36.2 BUN/Creatinine Ratio 34.8 Random Glucose 98 mg/dl Lactic Acid Level 0.9 mmol/L Calcium Level 9.0 mg/dl Phosphorus Level 3.4 mg/dl Magnesium Level 2.0 mg/dl Total Bilirubin 0.4 mg/dl Direct Bilirubin 0.2 mg/dl Aspartate Amino Transf (AST/SGOT) 56 U/L Alanine Aminotransferase (ALT/SGPT) 30 U/L Alkaline Phosphatase 84 U/L Troponin I 1.190 ng/ml Pro-B-Type Natriuretic Peptide 8883 pg/ml Total Protein 7.4 gm/dl Albumin 2.0 gm/dl Lipase 792 U/L Prothrombin Time 25.2 SECONDS Prothromb Time International Ratio 2.3 Urine Color YELLOW Urine Appearance CLOUDY Urine pH 5.0 Urine Specific [place] 1.017 Urine Protein NEG Urine Glucose (UA) NEG Urine Ketones NEG Urine Occult Blood TRACE Urine Nitrite NEG Urine Bilirubin NEG Urine Urobilinogen NEG Urine Leukocyte Esterase NEG Urine WBC (Auto) 1-5 /hpf Urine RBC (Auto) 0-4 /hpf Urine Hyaline Casts (Auto) 0 /lpf Urine Epithelial Cells (Auto) >30 /lpf Urine Bacteria (Auto) NEG Urine Pathogenic Casts /lpf Urine Yeast (Auto) Test 03/30/17 21:03 03/31/17 03:56 03/31/17 03:59 Lactic Acid Level 0.9 mmol/L Troponin I 1.010 ng/ml 0.856 ng/ml Sodium Level 137 mmol/L Potassium Level 4.3 mmol/L Chloride Level 105 mmol/L Carbon Dioxide Level 27 mmol/L Anion Gap 5.0 mmol/L Blood Urea Nitrogen 41 mg/dl Creatinine 1.30 mg/dl Est Creatinine Clear Calc Drug Dose 42.7 ml/min Estimated GFR () 45.8 Estimated GFR (Non- 39.5 BUN/Creatinine Ratio 31.9 Random Glucose 96 mg/dl Calcium Level 8.4 mg/dl Triglycerides Level 94 mg/dl Cholesterol Level 87 mg/dl HDL Cholesterol 30 mg/dl LDL Cholesterol, Calculated 38 mg/dl VLDL Cholesterol, Calculated 19 mg/dl Cholesterol/HDL Ratio 2.9 Lipase 770 U/L White Blood Count 7.73 K/uL Red Blood Count 3.25 M/uL Hemoglobin 9.9 g/dL Hematocrit 30.7 % Mean Corpuscular Volume 94.5 fL Mean Corpuscular Hemoglobin 30.5 pg Mean Corpuscular Hemoglobin Concent 32.2 g/dl Platelet Count 257 K/uL Mean Platelet Volume 9.2 fL Neutrophils (%) (Auto) 67.0 % Lymphocytes (%) (Auto) 15.7 % Monocytes (%) (Auto) 9.7 % Eosinophils (%) (Auto) 5.7 % Basophils (%) (Auto) 0.3 % Neutrophils # (Auto) 5.19 K/uL Lymphocytes # (Auto) 1.21 K/uL Monocytes # (Auto) 0.75 K/uL Eosinophils # (Auto) 0.44 K/uL Basophils # (Auto) 0.02 K/uL RDW Standard Deviation 58.8 fL RDW Coefficient of Variation 16.8 % Immature Granulocyte % (Auto) 1.6 % Immature Granulocyte # (Auto) 0.12 K/uL Prothrombin Time 30.3 SECONDS Prothromb Time International Ratio 2.7 Activated Partial Thromboplast Time 44.6 SECONDS Partial Thromboplastin Ratio 1.7 Estimated Average Glucose 111 mg/dl Hemoglobin A1c 5.5 % Imaging: Chest x-ray did not demonstrate any acute process. EKG: Atrial fibrillation with occasional demand ventricular pacing Telemetry reviewed: Atrial fibrillation with demand ventricular pacing Echocardiogram performed September 2015: Preserved LV systolic function. Mild left atrial dilation. Mild aortic stenosis with peak velocity of 3.1 meters/ seconds and mean gradient of 16 millimeters of mercury. Mild right ventricular dilation with slightly reduced RV systolic function. Holter monitor performed in October 2016: Atrial fibrillation. Average heart rate 55 beats per minute. Frequent pauses lasting up to 4 seconds in duration. Assessment & Plan 1. Pacemaker infection: While the overall pocket is not markedly erythematous are warm, there is a fistulous track which appears to communicate with the device. By definition the device is infected. Whether this is responsible for her sepsis syndrome is unclear. 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 At this point there is no alternative but to remove the device. This can likely be done quite safely given the recent nature of the implant. The resulting wound will likely need to be subjected to wet to dry dressings or possibly a drain for appropriate healing. She does not appear to be pacemaker dependent, and it is unclear what symptoms she had leading up to the implant itself. She may in fact be able to have an extended period without reimplantation given what appears to be minimal use of the pacemaker. I did discuss the option of removal and replacement of the device with the patient this morning. She has voiced a preference for transfer to [facility] where she has a relationship with her primary glue size machine operator. While we can easily extract the device here today, reimplantation may be problematic and wound management may be complicated by the lack of EP support next week. 2. Atrial fibrillation: This is permanent in nature. No notable symptoms. Overall rate control appears to be adequate on telemetry. She is appropriately anticoagulated. 3. Aortic stenosis: Last evaluation suggested that this was severe. Unclear if she has any symptoms related to the valvular disease. She does report some dyspnea on exertion, but this is likely multifactorial and may be more related to deconditioning than anything else. The timing for any valve surgery at this point is poor, and he can safely be deferred indefinitely at this time. 4. Elevated cardiac biomarkers: Patient does not describe symptoms consistent with a recent acute coronary syndrome. She does have some T-wave changes on her EKG which are nonspecific. She did not describe any symptoms of chest pain leading up to her admission currently. She was noted to be hypotensive however , and I suspect that the elevation in her biomarkers is more likely related to demand ischemia and perhaps an element of acidosis rather than an acute coronary syndrome. I would not treat her for an acute coronary syndrome at this point. Her markers seem to be trending down currently. 5. Elevated N terminal proBNP: I do not feel that the patient's markedly elevated N terminal proBNP is likely related to left-sided failure. She has no symptoms of pulmonary vascular congestion or findings on exam. Her chest x-ray was clear. She does have an element of RV dysfunction documented previously and significant lower extremity edema. Some of the elevation may be related to RV failure. However, elevations are commonly seen with sepsis and this may be a plausible explanation for her abnormal lab findings. I would not hesitate to administer additional volume for hemodynamic support should it become necessary. I do not feel that she needs to undergo a diuresis exclusively on the basis of this elevated lab result.
--- NOTE | 2017-03-31 10:37 | Discharge Instructions ---
Discharge Instructions Date of Service Mar 31, 2017. Admission Reason for Admission: Elevated Troponin,Hypotension Discharge Discharge Diagnosis / Problem: Pacemaker infection, cellulitis thigh, Hypotension Discharge Goals Goal(s): Improve disease control, Diagnostic testing, Therapeutic intervention Activity Recommendations Activity Limitations: as noted below Exercise/Sports Limitations: rest today Left fibular fracture needs to be addressed by Ortho upon transfer for weight bearing status . Instructions / Follow-Up Instructions / Follow-Up See transfer summary-transferred to [facility] Current Hospital Diet Patient's current hospital diet: AHA Diet (Heart Healthy) Discharge Diet Recommended Diet: N/A (NPO) Procedures Procedures Performed: Tib/Fib xrays, Chest xrays, pelvis Xrays, knee xrays Pending Studies Studies pending at discharge: yes List of pending studies: Blood cultures Wound culture Laboratory Results Hemoglobin A1c Test 03/31/17 03:59 Range/Units Estimated Average Glucose 111 mg/dl Hemoglobin A1c 5.5 4.5-5.6 % Lipid Panel Test 03/31/17 03:56 Range/Units Triglycerides Level 94 0-150 mg/dl Cholesterol Level 87 0-200 mg/dl HDL Cholesterol 30 mg/dl Cholesterol/HDL Ratio 2.9 LDL Cholesterol, Calculated 38 mg/dl Medical Emergencies . Who to Call and When: Medical Emergencies: If at any time you feel your situation is an emergency, please call 911 immediately. . Non-Emergent Contact Non-Emergency issues call your: Primary Care Provider, Staple Processing Machine Operator . . "Provider Documentation" section prepared by Lisandra Castano. . VTE Core Measure Inpt VTE Proph given/why not?: Warfarin (Coumadin), T.EAriadna Stockings, SCD's
[2017-03-31 11:25] VITALS: BP 101/51; PULSE 94; TEMP 36.4; O2SAT 98
--- NOTE | 2017-03-31 12:13 | Medical Consult ---
Consultation Date of Consultation: Mar 31, 2017. Attending Physician: Lisandra Castano MD Reason for Consultation: ? Sepsis source, Antibiotic recommendations History of Present Illness 77-year-old female with complicated recent past medical history with atrial fibrillation, status post colonoscopy with complication of abdominal wall hematoma, then development of abdominal wall infection and sepsis, need for IV antibiotics, incision and drainage and wound VAC placement, and course complicated by development of DVT. Approximately 6 weeks ago patient had pacemaker placed. she now presents with several days of progressively worsening weakness and fatigue, fever and chills. She was admitted to the hospital and has now been found to have probable infection at her pacemaker site. She has been started on broad-spectrum antibiotics and cultures have been taken. There are now plans to transfer to tertiary care center for further management. Past Medical/Surgical History Medical Problems: (1) Cellulitis Status: Acute (2) Cellulitis of right leg Status: Acute (3) Cellulitis of right thigh Status: Acute (4) CHF (congestive heart failure) Status: Acute Past Medical/Surgical History 1. Atrial fibrillation, permanent 2. Aortic stenosis, severe based on most recent echocardiogram 3. Carotid artery disease, status post bilateral carotid endarterectomy 4. Hyperlipidemia 5. Hypothyroidism 6. Anxiety and depression 7. History of DVT involving the right upper extremity 8. 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 Bilateral carotid endarterectomies right in 2012 and left in 2014 2. Wound VAC implantation for abdominal wound 3. Single-chamber [employer] pacemaker implantation February 09, 2017 4. Appendectomy 5. Hysterectomy 6. Lower extremity venous ligation Family History Cancer Diabetes mellitus Heart disease Hypertension Social History Smoking Status: Never Smoker Smokeless Tobacco Use: No Drug Use: none Marital Status: Housing Status: lives with family Occupation Status: retired Allergies Coded Allergies: Oxytetracycline (Verified Allergy, Intermediate, "felt like a big ball in my stomach", 02/24/17) Polymyxin B (Verified Allergy, Intermediate, "felt like a big ball in my stomach", 02/24/17) Current Inpatient Medications Current Inpatient Medications Medications (Trade) Dose Ordered Sig/Mariaelena Route Start Time Stop Time Status Last Admin Dose Admin Acetaminophen (Tylenol Tab) 650 mg Q4H PRN PO 03/30/17 18:45 04/29/17 18:44 Ondansetron HCl (Zofran Inj) 4 mg Q6H PRN IV 03/30/17 18:45 04/29/17 18:44 Polyethylene (Miralax Powder Packet) 17 gm DAILY PRN PO 03/30/17 18:45 04/29/17 18:44 Aspirin (Ecotrin Tab) 81 mg QAM PO 03/31/17 09:00 04/30/17 08:59 03/31/17 07:43 81 MG Atorvastatin Calcium (Lipitor Tab) 80 mg QAM PO 03/31/17 09:00 04/30/17 08:59 03/31/17 07:43 80 MG Cholecalciferol (Vitamin D Tab) 1,000 inter.unit DAILY PO 03/31/17 09:00 04/30/17 08:59 03/31/17 07:43 1,000 INTER.UNIT Citalopram Hydrobromide (celeXA TAB) 20 mg DAILY PO 03/31/17 09:00 04/30/17 08:59 03/31/17 07:44 20 MG Digoxin (Lanoxin Tab) 0.25 mg DAILY@1600 PO 03/31/17 16:00 04/30/17 15:59 Levothyroxine Sodium (Synthroid Tab) 88 mcg DAILYBB PO 03/31/17 06:00 04/30/17 06:59 03/31/17 06:03 88 MCG Potassium Chloride (Klor-Con Tab) 20 meq DAILY PO 03/31/17 09:00 04/30/17 08:59 03/31/17 07:43 20 MEQ Warfarin Sodium (Coumadin Tab) 4 mg DAILY@1600 PO 03/31/17 16:00 04/30/17 15:59 Vancomycin HCl 1500 mg/Sodium Chloride 530 ml @ 200 mls/hr Q24H IV 03/31/17 14:00 04/10/17 13:59 Piperacillin Sod/ Tazobactam Sod 4.5 gm/Dextrose 120 ml @ 30 mls/hr Q8H IV 03/31/17 00:00 04/06/17 17:59 03/31/17 07:43 30 MLS/HR Piperacillin Sod/ Tazobactam Sod (Consult) 1 ea UD PRN N/A 03/31/17 03:15 04/30/17 03:14 Vancomycin HCl (Consult) 1 ea UD PRN N/A 03/31/17 03:15 04/30/17 03:14 Review of Systems all systems were reviewed and are negative except as per HPI Physical Exam Date Time Temp Pulse Resp B/P (MAP) Pulse Ox O2 Delivery O2 Flow Rate FiO2 03/31/17 11:25 36.4 94 20 101/51 (68) 98 03/31/17 08:00 Room Air 03/31/17 07:20 36.4 89 20 129/72 (91) 94 Room Air 03/31/17 04:00 Room Air 03/31/17 03:44 36.4 79 18 139/73 (95) 98 Room Air 03/31/17 00:00 Room Air 03/30/17 23:33 36.4 76 21 107/71 (83) 99 Room Air 03/30/17 19:41 36.6 87 18 104/68 100 Room Air 03/30/17 19:26 36.6 100 22 126/68 96 03/30/17 18:20 100 22 03/30/17 17:50 82 15 03/30/17 17:20 108 21 03/30/17 17:17 91 03/30/17 16:50 90 20 03/30/17 16:45 93 17 96 Room Air 03/30/17 16:15 122 14 03/30/17 15:45 83 17 96 03/30/17 15:15 88 19 97 03/30/17 14:45 88 18 96 03/30/17 14:40 82 21 97 Room Air 03/30/17 14:10 98 28 93 03/30/17 13:40 101 23 92 03/30/17 13:35 101 26 03/30/17 13:17 99 03/30/17 13:05 80 22 97 Room Air 03/30/17 13:00 126/68 03/30/17 12:46 90 25 96 Room Air 03/30/17 12:41 98 24 96 Room Air 03/30/17 12:39 116/77 General Appearance: WD/WN, no apparent distress Head: normocephalic, atraumatic Eyes: normal inspection, EOMI, sclerae normal ENT: normal ENT inspection, hearing grossly normal, pharynx normal Neck: supple, no adenopathy, thyroid normal, trachea midline Respiratory/Chest: chest non-tender, lungs clear, normal breath sounds, no respiratory distress Cardiovascular: no gallop, + systolic murmur, + irregularly irregular Abdomen/GI: normal bowel sounds, non tender, soft, no organomegaly Back: normal inspection, no CVA tenderness Extremities/Musculoskelatal: no calf tenderness, non-tender Neurologic/Psych: alert, oriented x 3 Skin: normal color, no rash, + pertinent finding (Eschar lateral pacemaker site with fistula and purulence) Lymphatic: no adenopathy Laboratory Results Date/Time Source Procedure Growth Status 03/30/17 13:46 Blood Blood Culture Pending Received 03/30/17 20:05 Nasal MRSA DNA Surveillance Screen - Final Specimen Positive for MRSA by DNA Probe Complete 03/30/17 17:27 Urine , Clean Catch Urine Culture Pending Received 03/31/17 11:35 Incision Site Trunk/Torso Gram Stain Pending Danilo Batch 03/31/17 11:35 Incision Site Trunk/Torso Wound Culture Pending Danilo Batch Last 24 Hours Test 03/30/17 12:35 03/30/17 13:46 03/30/17 16:39 03/30/17 17:27 Bedside Lactic Acid Venous 2.18 mmol/L White Blood Count 10.93 K/uL Red Blood Count 3.64 M/uL Hemoglobin 11.5 g/dL Hematocrit 34.2 % Mean Corpuscular Volume 94.0 fL Mean Corpuscular Hemoglobin 31.6 pg Mean Corpuscular Hemoglobin Concent 33.6 g/dl Platelet Count 264 K/uL Mean Platelet Volume 9.5 fL Neutrophils (%) (Auto) 79.5 % Lymphocytes (%) (Auto) 10.2 % Monocytes (%) (Auto) 7.7 % Eosinophils (%) (Auto) 1.0 % Basophils (%) (Auto) 0.1 % Neutrophils # (Auto) 8.69 K/uL Lymphocytes # (Auto) 1.12 K/uL Monocytes # (Auto) 0.84 K/uL Eosinophils # (Auto) 0.11 K/uL Basophils # (Auto) 0.01 K/uL RDW Standard Deviation 58.2 fL RDW Coefficient of Variation 16.8 % Immature Granulocyte % (Auto) 1.5 % Immature Granulocyte # (Auto) 0.16 K/uL Erythrocyte Sedimentation Rate > 90 mm/hr Sodium Level 135 mmol/L Potassium Level 4.6 mmol/L Chloride Level 103 mmol/L Carbon Dioxide Level 25 mmol/L Anion Gap 7.0 mmol/L Blood Urea Nitrogen 49 mg/dl Creatinine 1.40 mg/dl Est Creatinine Clear Calc Drug Dose 40.9 ml/min Estimated GFR () 41.9 Estimated GFR (Non- 36.2 BUN/Creatinine Ratio 34.8 Random Glucose 98 mg/dl Lactic Acid Level 0.9 mmol/L Calcium Level 9.0 mg/dl Phosphorus Level 3.4 mg/dl Magnesium Level 2.0 mg/dl Total Bilirubin 0.4 mg/dl Direct Bilirubin 0.2 mg/dl Aspartate Amino Transf (AST/SGOT) 56 U/L Alanine Aminotransferase (ALT/SGPT) 30 U/L Alkaline Phosphatase 84 U/L Troponin I 1.190 ng/ml Pro-B-Type Natriuretic Peptide 8883 pg/ml Total Protein 7.4 gm/dl Albumin 2.0 gm/dl Lipase 792 U/L Prothrombin Time 25.2 SECONDS Prothromb Time International Ratio 2.3 Urine Color YELLOW Urine Appearance CLOUDY Urine pH 5.0 Urine Specific [place] 1.017 Urine Protein NEG Urine Glucose (UA) NEG Urine Ketones NEG Urine Occult Blood TRACE Urine Nitrite NEG Urine Bilirubin NEG Urine Urobilinogen NEG Urine Leukocyte Esterase NEG Urine WBC (Auto) 1-5 /hpf Urine RBC (Auto) 0-4 /hpf Urine Hyaline Casts (Auto) 0 /lpf Urine Epithelial Cells (Auto) >30 /lpf Urine Bacteria (Auto) NEG Urine Pathogenic Casts /lpf Urine Yeast (Auto) Test 03/30/17 21:03 03/31/17 03:56 03/31/17 03:59 Lactic Acid Level 0.9 mmol/L Troponin I 1.010 ng/ml 0.856 ng/ml Sodium Level 137 mmol/L Potassium Level 4.3 mmol/L Chloride Level 105 mmol/L Carbon Dioxide Level 27 mmol/L Anion Gap 5.0 mmol/L Blood Urea Nitrogen 41 mg/dl Creatinine 1.30 mg/dl Est Creatinine Clear Calc Drug Dose 42.7 ml/min Estimated GFR () 45.8 Estimated GFR (Non- 39.5 BUN/Creatinine Ratio 31.9 Random Glucose 96 mg/dl Calcium Level 8.4 mg/dl Triglycerides Level 94 mg/dl Cholesterol Level 87 mg/dl HDL Cholesterol 30 mg/dl LDL Cholesterol, Calculated 38 mg/dl VLDL Cholesterol, Calculated 19 mg/dl Cholesterol/HDL Ratio 2.9 Lipase 770 U/L White Blood Count 7.73 K/uL Red Blood Count 3.25 M/uL Hemoglobin 9.9 g/dL Hematocrit 30.7 % Mean Corpuscular Volume 94.5 fL Mean Corpuscular Hemoglobin 30.5 pg Mean Corpuscular Hemoglobin Concent 32.2 g/dl Platelet Count 257 K/uL Mean Platelet Volume 9.2 fL Neutrophils (%) (Auto) 67.0 % Lymphocytes (%) (Auto) 15.7 % Monocytes (%) (Auto) 9.7 % Eosinophils (%) (Auto) 5.7 % Basophils (%) (Auto) 0.3 % Neutrophils # (Auto) 5.19 K/uL Lymphocytes # (Auto) 1.21 K/uL Monocytes # (Auto) 0.75 K/uL Eosinophils # (Auto) 0.44 K/uL Basophils # (Auto) 0.02 K/uL RDW Standard Deviation 58.8 fL RDW Coefficient of Variation 16.8 % Immature Granulocyte % (Auto) 1.6 % Immature Granulocyte # (Auto) 0.12 K/uL Prothrombin Time 30.3 SECONDS Prothromb Time International Ratio 2.7 Activated Partial Thromboplast Time 44.6 SECONDS Partial Thromboplastin Ratio 1.7 Estimated Average Glucose 111 mg/dl Hemoglobin A1c 5.5 % CHEST ONE VIEW PORTABLE CLINICAL HISTORY: CHEST PAIN dyspnea COMPARISON STUDY: 04/16/2014 FINDINGS: Permanent unipolar cardiac pacemaker. Lungs are clear. Chronic right hilar fullness. Diaphragms are smooth. IMPRESSION: No acute process. Chronic changes as noted The above report was generated using voice recognition software. It may contain grammatical, syntax or spelling errors. Electronically signed by: Gilmer Frausto M.D. 03/30/2017 10:52 AM Dictated Date/Time: 03/30/2017 10:52 AM The status of th Assessment & Plan Sepsis likely from infected pacemaker, worry about possible MRSA infection given positive MRSA screen. Vancomycin and Zosyn appropriate for now pending further culture results, but patient to be transferred to [facility] for further management.
--- NOTE | 2017-03-31 12:51 | DIAGNOSTIC IMAGING REPORT ---
BILATERAL LOWER EXTREMITY VENOUS DOPPLER HISTORY: Leg swelling. r/o DVT COMPARISON STUDY: None. FINDINGS: There is normal compressibility, flow, and augmentation within the bilateral lower extremity deep venous systems. IMPRESSION: No DVT within the right or left lower extremity. Electronically signed by: Rodriguez Stroud M.D. 03/31/2017 12:50 PM Dictated Date/Time: 03/31/2017 12:49 PM
[2017-03-31] MEDS ORDERED: VANCOMYCIN INJ 1,500 MG in SODIUM CHLORIDE 0.9% 500ML 500 ML IV SCH (14:00)
[2017-03-31] MEDS ORDERED: WARFARIN SOD 4 MG TAB PO SCH (16:00)
[2017-03-31] MEDS ORDERED: DIGOXIN 0.25 MG TAB PO SCH (16:00)
--- NOTE | 2017-03-31 23:39 | Progress Note ---
Internal Med Progress Note Date of Service: Mar 31, 2017. Provider Documentation: Notified by lab staff of gram-positive cocci growth in one bottle of blood cultures drawn from patient. Patient has been discharged from the hospital by [facility] Hospitalist service. I relayed information to Dr. Reynoso, [facility] melt superintendant on-call. Vital Signs: Date Time Temp Pulse Resp B/P (MAP) Pulse Ox O2 Delivery O2 Flow Rate FiO2 03/31/17 12:00 Room Air Lab Results: Microbiology Results 03/31/17 Gram Stain - Final, Resulted 03/31/17 Wound Culture - Preliminary, Resulted Staphylococcus Aureus
[2017-04-02] MEDS ORDERED: VANCOMYCIN TROUGH SCH (14:00)
--- NOTE | 2017-04-18 16:44 | Discharge Summary ---
Discharge Summary Date of Service Mar 31, 2017. Discharge Summary Admission Date: Mar 30, 2017 at 18:46 Discharge Date: Mar 31, 2017 Discharge Disposition: Acute care facility ([facility]) Principal Diagnosis: Infected Pacemaker site, sepsis Problems/Secondary Diagnoses: Right thigh cellulitis HTN Chronic atrial fibrillation on coumadin History of multiple DVTs PVD Carotid artery stenosis s/p R CEA Hypothyroidism History of large right lower abdomen hematoma History of cellulitis of the abdominal wall History of MRSA and pseudomonas sepsis Pacemaker in situ Hypotension Lactic acidosis Elevated troponin-demand ischemia [place] Elevated Lipase Left Nondisplaced hairline fracture proximal fibular shaft Procedures: RIGHT TIBIA/FIBULA 2 VIEWS ROUTINE CLINICAL HISTORY: Pain. Trauma. COMPARISON: None. DISCUSSION: There are osteophytic changes involving the knee. There are Achilles insertional calcifications. There is irregularity of the medial malleolus. This is age-indeterminate. If the patient has ankle symptomatology, dedicated views of the ankle should be considered in follow-up. IMPRESSION: 1. Osteoarthritic changes involving the knee 2. Age-indeterminate irregularity of the medial malleolus of the distal tibia. If the patient has ankle symptomatology, dedicated views of the ankle should be considered in follow-up LEFT TIBIA/FIBULA 2 VIEWS ROUTINECLINICAL HISTORY: Pain. Trauma COMPARISON: None. DISCUSSION: There are osteoarthritic changes within the knee. No acute fractures are visualized. There is Achilles insertional calcification. IMPRESSION: No acute fractures identified. Chest xray-no acute changes RIGHT KNEE 3 VIEWS CLINICAL HISTORY: Right knee pain. Trauma. COMPARISON: None. DISCUSSION: There are moderately advanced osteoarthritic changes. There is medial joint compartment narrowing and spurring. There are dorsal patellar spurs. There are no acute fractures. IMPRESSION: Moderately advanced osteoarthritic change. No acute fractures. PELVIS/BILATERAL HIP 2 VIEWS CLINICAL HISTORY: b/l hip pain pain COMPARISON STUDY: None FINDINGS: Severe degenerative change right hip. Deformity and sclerosis of the femoral head. Probable underlying dysplastic change. Moderate degenerative change left hip. No evidence for fracture. Moderate degenerative change sacroiliac joints with moderate degenerative change of the low lumbar spine. IMPRESSION: 1. Severe degenerative change right hip with probable underlying dysplastic change. 2. Moderate degenerative change left hip. 3. No acute abnormality LEFT KNEE 3 VIEWS CLINICAL HISTORY: pain pain COMPARISON: None. DISCUSSION: Significant degenerative change medial joint compartment as well as patellofemoral joint. Moderate reactive osteophytic change throughout. No significant joint effusion. Nondisplaced cortical fracture proximal fibula. IMPRESSION: 1. Degenerative change primarily of the medial and patellofemoral joint compartments. 2. Nondisplaced hairline fracture proximal fibular shaft. BILATERAL LOWER EXTREMITY VENOUS DOPPLER HISTORY: Leg swelling. r/o DVTCOMPARISON STUDY: None. FINDINGS: There is normal compressibility, flow, and augmentation within the bilateral lower extremity deep venous systems. IMPRESSION: No DVT within the right or left lower extremity. Consultations: Cardiology Medication Reconciliation Continued Medications: Aspirin (Aspirin EC Low Dose) 81 Mg Ectab 81 MG PO QAM for 30 Days, 3 Refills Atorvastatin (Atorvastatin Calcium) 40 Mg Tab 80 MG PO QAM for 30 Days, TAB 3 Refills Cholecalciferol (Vitamin D 1000 Unit) 1,000 Unit Cap 1000 INTER.UNIT PO DAILY, CAP Citalopram (Citalopram Hydrobromide) 40 Mg Tab 20 MG PO DAILY 1/2 tablet dose Digoxin (Digoxin) 0.25 Mg Tab 1 TAB PO DAILY Levothyroxine Sodium (Levothyroxine Sodium) 88 Mcg Tab 88 MCG PO DAILY Lisinopril (Lisinopril) 20 Mg Tab 20 MG PO DAILY Lorazepam (Ativan) 0.5 Mg Tab 0.5 MG PO TID PRN for as needed, TAB Metoprolol Tartrate (Lopressor) 50 Mg Tab 50 MG PO BID, TAB Potassium Chloride Microencaps (Potassium Chloride Er) 20 Meq Tab 1 TAB PO DAILY for 90 Days, #90 TAB 3 Refills Warfarin Sod (Jantoven) 4 Mg Tab 4 MG PO 2XWK Warfarin Sodium (Warfarin Sodium) 3 Mg Tab 3 MG PO 5XWK Discharge Exam Review of Systems: Constitutional: + fever, + chills Eyes: No problem reported ENT: No problem reported Respiratory: + shortness of breath Cardiovascular: + edema, No chest pain Abdomen: No pain, No nausea, No vomiting Musculoskeletal: + joint pain (left knee, lower legs bilat) Genitourinary - Female: No problem reported Neurologic: No problem reported Psychiatric: No problem reported Endocrine: No problem reported Hematologic / Lymphatic: No problem reported Integumentary: No problem reported Physical Exam: General Appearance: + obese Eyes: normal inspection, sclerae normal ENT: hearing grossly normal, pharynx normal Neck: trachea midline Respiratory/Chest: lungs clear, normal breath sounds, no respiratory distress, no accessory muscle use Cardiovascular: normal peripheral pulses, + systolic murmur (3/6 high pitched harsh at RUSB), + irregularly irregular (with normal rate) Abdomen / GI: normal bowel sounds, non tender, soft, + pertinent finding ( wound vac in place right side abdomen without surorunding eruythema) Extremities: + swelling (2+ pitting edema legs to knees bilat), + pertinent finding (+TTP over left fibular head) Neurologic/Psychiatric: alert, normal mood/affect, oriented x 3 Skin: + rash (right prox anterior thigh with large patch of macuular erythema that is warm to the touch, blanching, minimally tender, within drawn marker line) Hospital Course This is a 77 yo F with PMHx of HTN, chronic afib, on coumadin, multip DVTs, PVD , carotid stenosis s/p R CEA, hypothyroidism. The pt underwent elective colonoscopy on November 28 where she required being bridged with lovenox, due to history of atrial fib. She developed a large right lower abdomen hematoma. She was transferred at that time to [facility] where was also found to have DVT in the Right axillary and subclavian veins. She was placed back on lovenox bridge to warfarin.After this the pt developed redness around the abdominal incision. She required readmission from December 16- for cellulitis of the abdominal wall, was given IV abx and infection which resolved. She was again admitted from Jan 15- with MRSA and pseudomonas sepsis requiring iv abx. They determined she had necrotizing cellulitis where she required an extended IV antibiotic tx where she had a PICC line placed, the PICC line has since been removed. Most recently she was admitted here at [facility] on February 24 with sepsis of the abdominal wall. She had a wound vac on the RLQ abdomen, and has home health services [place] this 2-3x per week. A unipolar pacemaker was placed approximately [address] Wagoner at [place], she follows with Reanna Esparza with cardiology. Since then her pacemaker site has not truly healed. The patient was seen by cardiology in [place] last , where her pacemaker site was noticed to have surrounding erythema, so was placed on an antibiotic (pt/family cannot recall the name) x 3 days. On Monday through Monday the pt developed a GI illness where she was vomiting x 2 days. She was unable to take any of her medications during that time so the antibiotic was not started until Monday. The patient collapsed on Monday due to weakness while walking. Her caught her, she denies LOC/dizziness or trauma to the head. Since then she has had severe bilateral lower leg pain. The day prior to admission, the home health nurse was visiting for wound vac change, and noticed "hives" on her legs so told her to go see the PCP. Today at Dr. Parmar's office she was noted to be hypotensive with BP 77/56 and and EKG with possible ST wave inversion. She Admits to feeling weak and having chills, denies fevers and sweats. This is a 77 yo F with PMHx of HTN, chronic afib, on coumadin, multip DVTs, PVD , carotid stenosis s/p R CEA, hypothyroidism, s/p pacemaker insertion and MRSA/ pseudomonas abdominal wound with vac in place presenting with hypotension, questionable EKG changes, and weakness in the setting of multiple recent hospital admissions Sepsis - lactic acidosis-patient had obvious pus draining from her pacemaker insertion site. She was also found to have cellulitis of the right anterior thigh. She had a leukocytosis at 10.9 but was afebrile. - Admitted to tele - Blood cultures and wound culture were collected - She was started on vancomycin and zosyn - Consult was made to infectious disease for abx recommendations - BP improved compared to outpatient reading of 77/51 to 120s systolic - Cardiology consult for evaluation of pacemaker and possible source of infection as site is nonhealing for at least 1 month now. EKG reviewed. Noted elevated troponin. Cardiology recommended removal of the pacemaker with antibiotics in the interim, however all of our available container finisher were going out of town for the entire following week and no one would be available to replace her pacemaker after antibiotic treatment. I called down to [facility] and they agreed to accept the patient for further treatment where she would be able to have pacemaker removed and subsequently replaced. Elevated troponin/ elevated BNP - Possible a demand ischemia mismatch -Needs to have her troponin trended Chronic Atrial fibrillation - Continue coumadin - monitor daily coags while on antibiotics HTN - holding lisinopril and metoprolol with hypotension - Monitor BPs in tele [place] - Cr is mildly elevated at 1.4, baseline appears to be 0.9-1.0 - Holding lasix for possible sepsis. Elevated Lipase - Trend am labs, no abdominal pain currently. Left Nondisplaced hairline fracture proximal fibular shaft - S/p fall, no acute interventions for this fracture -Needs orthopedic consultation Will transfer to [facility] urgently Total Time Spent: Greater than 30 minutes This includes examination of the patient, discharge planning, medication reconciliation, and communication with other providers. Discharge Instructions Please refer to the electronic Patient Visit Report (Discharge Instructions) for additional information. Additional Copies To Jeremie Parmar M.D.
[2017-05-02] MEDS ORDERED: SULF800T23 PO (10:36)
[2017-05-02] MEDS ORDERED: AMOX875T PO (10:36)
[2017-05-02] MEDS ORDERED: SACC250C3 PO (10:36)
[2017-05-12] MEDS ORDERED: PROB1CAP6 (10:45)
== END 2017-03-31 12:44 | disposition short-term general hospital (02) | DRG 314 ==
LOC: EDBD 10:11 → C.EDA 10:12 → C.2T 18:46 → ENRESERV 18:51
PROVIDERS: ADMIT Internal Medicine; ATTEND Family Medicine
DX: T82.7XXA Infection and inflammatory reaction due to other cardiac and vascular devices, implants and grafts, initial encounter (principal); A41.9 Sepsis, unspecified organism; N17.9 Acute kidney failure, unspecified; I24.8 Other forms of acute ischemic heart disease; B95.62 Methicillin resistant Staphylococcus aureus infection as the cause of diseases classified elsewhere; S82.832A Other fracture of upper and lower end of left fibula, initial encounter for closed fracture; W19.XXXA Unspecified fall, initial encounter; M79.605 Pain in left leg; M79.604 Pain in right leg; L50.0 Allergic urticaria; R74.8 Abnormal levels of other serum enzymes; T36.95XA Adverse effect of unspecified systemic antibiotic, initial encounter; T81.4XXD Infection following a procedure, subsequent encounter; L08.89 Other specified local infections of the skin and subcutaneous tissue; Y83.8 Other surgical procedures as the cause of abnormal reaction of the patient, or of later complication, without mention of misadventure at the time of the procedure; I11.0 Hypertensive heart disease with heart failure; I50.9 Heart failure, unspecified; I48.2 Chronic atrial fibrillation; I35.0 Nonrheumatic aortic (valve) stenosis; I87.8 Other specified disorders of veins; I73.9 Peripheral vascular disease, unspecified; E03.9 Hypothyroidism, unspecified; E78.5 Hyperlipidemia, unspecified; F41.9 Anxiety disorder, unspecified; F32.9 Major depressive disorder, single episode, unspecified; E66.9 Obesity, unspecified; Z68.37 Body mass index [BMI] 37.0-37.9, adult; Z86.718 Personal history of other venous thrombosis and embolism; Z79.01 Long term (current) use of anticoagulants; Z79.82 Long term (current) use of aspirin; Z79.899 Other long term (current) drug therapy; T81.4XXA Infection following a procedure, initial encounter; Y83.1 Surgical operation with implant of artificial internal device as the cause of abnormal reaction of the patient, or of later complication, without mention of misadventure at the time of the procedure

== ENCOUNTER → 2017-03-30 | Outpatient (CLI) | payer OTHER | END | disposition home or self-care (01) | LOC: C.LABMFLN 10:54 | PROVIDERS: ATTEND Family Medicine | DX: T81.4XXA Infection following a procedure, initial encounter (principal); Y83.1 Surgical operation with implant of artificial internal device as the cause of abnormal reaction of the patient, or of later complication, without mention of misadventure at the time of the procedure ==

== ENCOUNTER → 2017-04-20 | Outpatient (CLI) | payer OTHER ==
[~2017-04-20] MED LIST changes: +AMOX875T PO; +ASPI-589 PO; +ATOR-24 PO; -LVQ750 PO; +LXP/20 PO; +POTA20TA16 PO; +PROB1CAP6; +SACC250C3 PO; +SULF800T23 PO; +WARF-285 PO; +WARF4TAB8 PO
[2017-04-20 17:47] LABS: BASO % 0.1 %; BASO ABS # 0.01 K/uL (0-0.2); COMPLETE YES; EOS % 2.9 %; HEMATOCRIT 36.6 % (37-47); IG% 0.3 %; LYMPH % 16.6 %; LYMPH ABS # 1.16 K/uL (1.2-3.4); MEAN CELL VOLUME 96.1 fL (80-100); MEAN CORPUSCULAR HEMOGLOBIN 29.9 pg (25-34); MEAN CORPUSCULAR HGB CONC 31.1 g/dl (32-36); MEAN PLATELET VOLUME 9.7 fL (7.4-10.4); MONO % 5.3 %; NEUT % 74.8 %; PLATELET COUNT 283 K/uL (130-400); RED BLOOD COUNT 3.81 M/uL (4.2-5.4); WHITE BLOOD COUNT 6.97 K/uL (4.8-10.8)
[2017-04-20 18:03] LABS: BLOOD UREA NITROGEN 22 mg/dl (7-18); BUN/CREATININE RATIO 14.3 (10-20); CARBON DIOXIDE 27 mmol/L (21-32); CHLORIDE 101 mmol/L (98-107); GLUCOSE 105 mg/dl (70-99); SODIUM 135 mmol/L (136-145)
== END | disposition home or self-care (01) ==
LOC: C.LABMFLN 12:26
PROVIDERS: ATTEND Family Medicine
DX: I48.91 Unspecified atrial fibrillation (principal); T82.7XXA Infection and inflammatory reaction due to other cardiac and vascular devices, implants and grafts, initial encounter; X58.XXXA Exposure to other specified factors, initial encounter

== ENCOUNTER 2017-04-28 14:35 | Inpatient (IN) | payer OTHER ==
[~2017-04-28] VITALS: Ht 165.1 cm; Wt 102.9 kg
[~2017-04-28 14:35] MED LIST changes: -AMOX875T PO; -ASPI-589 PO; -ATOR-24 PO; -LXP/20 PO; -POTA20TA16 PO; -PROB1CAP6; -SACC250C3 PO; -SULF800T23 PO
[2017-04-28] MEDS ORDERED: SODIUM CHLORIDE 0.9% 500ML 500 ML IV STA ×2 (15:11→16:10)
[2017-04-28 15:28] LABS: BASO % 0.1 %; BASO ABS # 0.02 K/uL (0-0.2); COMPLETE YES; EOS % 0.4 %; HEMATOCRIT 34.2 % (37-47); IG% 0.5 %; LYMPH % 4.4 %; LYMPH ABS # 0.78 K/uL (1.2-3.4); MEAN CELL VOLUME 93.7 fL (80-100); MEAN CORPUSCULAR HEMOGLOBIN 31.8 pg (25-34); MEAN CORPUSCULAR HGB CONC 33.9 g/dl (32-36); MONO % 3.8 %; NEUT % 90.8 %; PLATELET COUNT 238 K/uL (130-400); RED BLOOD COUNT 3.65 M/uL (4.2-5.4); WHITE BLOOD COUNT 17.82 K/uL (4.8-10.8)
--- NOTE | 2017-04-28 15:33 | DIAGNOSTIC IMAGING REPORT ---
CHEST ONE VIEW PORTABLE CLINICAL HISTORY: FEVER COMPARISON STUDY: 03/30/2017 FINDINGS: The examination is limited secondary to respiratory motion artifact. The heart is mildly enlarged. There is stable right hilar prominence. There is no overt failure. There is no focal pulmonary consolidation. Arthritic changes are present within the right shoulder. The previously identified right subclavian central venous pacemaker is no longer present.[ IMPRESSION: AP portable study. No acute findings. Electronically signed by: Cornelius Morin M.D. 04/28/2017 3:32 PM Dictated Date/Time: 04/28/2017 3:31 PM
[2017-04-28 15:35] LABS: MANUAL MICROSCOPIC REQUIRED? NO; REVIEW REQ? NO; URINE APPEARANCE CLEAR (CLEAR); URINE BILIRUBIN NEG (NEG); URINE COLOR YELLOW; URINE NITRITE NEG (NEG); URINE SPECIFIC GRAVITY 1.022 (1.000-1.030); UROBILINOGEN NEG (NEG)
[2017-04-28 15:39] LABS: INR 1.3 (0.9-1.1); PARTIAL THROMBOPLASTIN RATIO 1.1; PROTHROMBIN TIME (PATIENT) 14.2 SECONDS (9.0-12.0)
[2017-04-28] MEDS ORDERED: PIPERACILLIN/TAZOBACTAM 4.5 GM/100ML D5W IV STA (15:42)
[2017-04-28] MEDS ORDERED: VANCOMYCIN INJ 2,000 MG in SODIUM CHLORIDE 0.9% 500ML 500 ML IV STA (15:42)
[2017-04-28 15:50] LABS: CALCIUM 8.8 mg/dl (8.5-10.1); CREATININE 1.2 mg/dl (0.60-1.20); MAGNESIUM 1.8 mg/dl (1.8-2.4); POTASSIUM 4.7 mmol/L (3.5-5.1)
[2017-04-28] MEDS ORDERED: LXP/20 PO (16:13)
[2017-04-28] MEDS ORDERED: POTA20TA16 PO (16:13)
[2017-04-28] MEDS ORDERED: OPTIRAY 320 IV PRN (16:15)
[2017-04-28] MEDS ORDERED: ATOR-24 PO (16:15)
[2017-04-28 16:24] LABS: ALB/GLOB RATIO 0.4 (0.9-2)
[2017-04-28] MEDS ORDERED: SODIUM CHLORIDE 0.9% 1000ML 1,000 ML IV STA (16:54)
--- NOTE | 2017-04-28 17:08 | EMERGENCY ROOM VISIT NOTE ---
History First contact with patient: 14:51 Chief Complaint: FEVER Stated Complaint: FEVER History of Present Illness The patient is a 77 year old female with a complicated past medical history of A. fib on Coumadin, history of DVT status post permanent pacemaker removal after infection, large right lower abdominal hematoma status post evacuation and wound VAC still present who presents to the Emergency Room with complaints of fevers chills of abrupt onset today. Denies chest pain, cough, congestion, shortness of breath, nausea/vomiting, diarrhea/constipation, burning with urination. She reports that she was feeling fine yesterday without any symptoms. Review of Systems See HPI for pertinent positives and negatives. A total of ten systems were reviewed and were otherwise negative. Past Medical/Surgical History Medical Problems: (1) Atrial Fibrillation (2) Benign Hypertension (3) Carotid Artery Occlusion W O Cerebral Infarction (4) Cellulitis of left leg (5) Elevated troponin (6) Hyperlipidemia Nec/Nos (7) Hypotension (8) Hypothyroidism Nos Family History Cancer Diabetes mellitus Heart disease Hypertension Social History Smoking Status: Never Smoker Drug Use: none Marital Status: Housing Status: lives with family Occupation Status: retired Current/Historical Medications Scheduled Atorvastatin (Lipitor), 40 MG PO DAILY Cholecalciferol (Vitamin D 1000 Unit), 1,000 INTER.UNIT PO DAILY Digoxin (Digoxin), 0.25 MG PO DAILY Escitalopram Oxalate (Escitalopram Oxalate), 20 MG PO DAILY Metoprolol Tartrate (Lopressor), 50 MG PO BID Potassium Ext Rel (Klor-Con), 10 MEQ PO DAILY Warfarin Sodium (Warfarin Sodium), 3 MG PO DIRECTED Physical Exam Vital Signs Date Time Temp Pulse Resp B/P (MAP) Pulse Ox O2 Delivery O2 Flow Rate FiO2 04/28/17 17:23 39.3 04/28/17 17:21 39.3 118 23 131/97 92 Room Air 04/28/17 16:28 119 23 124/90 04/28/17 15:31 96 Room Air 04/28/17 15:29 136 20 135/102 96 Room Air 04/28/17 14:57 141 04/28/17 14:50 39.2 131 20 137/84 90 Room Air Physical Exam GENERAL: Awake, alert, uncomfortable, in mild distress. HENT: Normocephalic, atraumatic. Dry MM, Otherwise, Oropharynx unremarkable. EYES: Normal conjunctiva. Sclera non-icteric. NECK: Supple. No nuchal rigidity. FROM. No JVD. RESPIRATORY: Clear to auscultation. CARDIAC: IRIR. Extremities warm and well perfused. Pulses equal. ABDOMEN: Obese-distended but soft. No tenderness to palpation. Wound vac site RLQ c/d/i. No rebound or guarding. No masses. RECTAL: Deferred. MUSCULOSKELETAL: Chest examination reveals no tenderness. The back is symmetrical on inspection without obvious abnormality. There is no CVA tenderness to palpation. . LOWER EXTREMITIES: BLE edema left greater than right with lower left leg with erythema and warmth. No crepitus, induration, or fluctuance. NEURO: Normal sensorium. No sensory or motor deficits noted. SKIN: No jaundice noted. LLE erythema per above. Medical Decision & Procedures ER Provider Diagnostic Interpretation: ERIK ROSA Limited bedside US with grossly normal RV and LV function. CXR negative. Radiology report: CT chest: IMPRESSION: 1. Allowing for respiratory motion artifact, no central pulmonary embolus. Degraded evaluation of the segmental and subsegmental pulmonary arteries. 2. Mosaic attenuation in the lungs could suggest small airways disease. 3. Scattered groundglass opacities at the lung bases. This could represent areas of atelectasis, infection, or edema. No interlobular septal thickening to substantiate the presence of pulmonary edema. 4. Left atrial enlargement. CT abd/pel: IMPRESSION: 1. No nephrolithiasis. 2. Defect of the anterior abdominal wall in the right lower quadrant with associated subjacent infiltration and a wound VAC in place. No fluid collection or deep extension. 3. Large left ventral hernia containing sigmoid colon and small bowel without evidence of obstruction. 4. Decompressed bladder with persistent wall thickening. This again suggest cystitis, possibly infectious, postinflammatory, or post radiation. Correlate with urinalysis. 5. Severe degenerative changes. 6. Mosaic attenuation at the lung bases suggestive of small airways disease likely with scattered atelectasis. 7. Bilateral enlargement. Laboratory Results 04/28/17 15:05 Red Blood Count 3.65, Mean Corpuscular Volume 93.7, Mean Corpuscular Hemoglobin 31.8, Mean Corpuscular Hemoglobin Concent 33.9, Mean Platelet Volume 9.0, Neutrophils (%) (Auto) 90.8, Lymphocytes (%) (Auto) 4.4, Monocytes (%) (Auto) 3.8, Eosinophils (%) (Auto) 0.4, Basophils (%) (Auto) 0.1, Neutrophils # (Auto) 16.18, Lymphocytes # (Auto) 0.78, Monocytes # (Auto) 0.67, Eosinophils # (Auto) 0.08, Basophils # (Auto) 0.02 04/28/17 15:05 Test 04/28/17 15:00 04/28/17 15:05 04/28/17 15:10 04/28/17 17:51 Urine Color YELLOW Urine Appearance CLEAR (CLEAR) Urine pH 5.0 (4.5-7.5) Urine Specific [place] 1.022 (1.000-1.030) Urine Protein 1+ (NEG) Urine Glucose (UA) NEG (NEG) Urine Ketones NEG (NEG) Urine Occult Blood TRACE (NEG) Urine Nitrite NEG (NEG) Urine Bilirubin NEG (NEG) Urine Urobilinogen NEG (NEG) Urine Leukocyte Esterase NEG (NEG) Urine WBC (Auto) 1-5 /hpf (0-5) Urine RBC (Auto) 0-4 /hpf (0-4) Urine Hyaline Casts (Auto) 1-5 /lpf (0-5) Urine Epithelial Cells (Auto) 10-20 /lpf (0-5) Urine Bacteria (Auto) NEG (NEG) White Blood Count 17.82 K/uL (4.8-10.8) Red Blood Count 3.65 M/uL (4.2-5.4) Hemoglobin 11.6 g/dL (12.0-16.0) Hematocrit 34.2 % (37-47) Mean Corpuscular Volume 93.7 fL (80-100) Mean Corpuscular Hemoglobin 31.8 pg (25-34) Mean Corpuscular Hemoglobin Concent 33.9 g/dl (32-36) Platelet Count 238 K/uL (130-400) Mean Platelet Volume 9.0 fL (7.4-10.4) Neutrophils (%) (Auto) 90.8 % Lymphocytes (%) (Auto) 4.4 % Monocytes (%) (Auto) 3.8 % Eosinophils (%) (Auto) 0.4 % Basophils (%) (Auto) 0.1 % Neutrophils # (Auto) 16.18 K/uL (1.4-6.5) Lymphocytes # (Auto) 0.78 K/uL (1.2-3.4) Monocytes # (Auto) 0.67 K/uL (0.11-0.59) Eosinophils # (Auto) 0.08 K/uL (0-0.5) Basophils # (Auto) 0.02 K/uL (0-0.2) RDW Standard Deviation 57.5 fL (36.4-46.3) RDW Coefficient of Variation 16.6 % (11.5-14.5) Immature Granulocyte % (Auto) 0.5 % Immature Granulocyte # (Auto) 0.09 K/uL (0.00-0.02) Prothrombin Time 14.2 SECONDS (9.0-12.0) Prothromb Time International Ratio 1.3 (0.9-1.1) Activated Partial Thromboplast Time 29.2 SECONDS (21.0-31.0) Partial Thromboplastin Ratio 1.1 Anion Gap 6.0 mmol/L (3-11) Est Creatinine Clear Calc Drug Dose 46.7 ml/min Estimated GFR () 50.5 Estimated GFR (Non- 43.6 BUN/Creatinine Ratio 28.0 (10-20) Calcium Level 8.8 mg/dl (8.5-10.1) Magnesium Level 1.8 mg/dl (1.8-2.4) Total Bilirubin 0.4 mg/dl (0.2-1) Aspartate Amino Transf (AST/SGOT) 78 U/L (15-37) Alanine Aminotransferase (ALT/SGPT) 47 U/L (12-78) Alkaline Phosphatase 112 U/L (45-117) Troponin I 0.165 ng/ml (0-0.045) Pro-B-Type Natriuretic Peptide 1136 pg/ml (0-1800) Total Protein 7.8 gm/dl (6.4-8.2) Albumin 2.4 gm/dl (3.4-5.0) Globulin 5.4 gm/dl (2.5-4.0) Albumin/Globulin Ratio 0.4 (0.9-2) Bedside Lactic Acid Venous 1.41 mmol/L (0.90-1.70) Digoxin Level 0.4 ng/ml (0.8-2.0) Medications Administered Medications (Trade) Dose Ordered Sig/Mariaelena Route Start Time Stop Time Status Last Admin Dose Admin Sodium Chloride 500 ml @ 999 mls/hr Q31M STAT IV 04/28/17 15:11 04/28/17 15:41 DC 04/28/17 15:11 999 MLS/HR Piperacillin Sod/ Tazobactam Sod (Zosyn Iv) 4.5 gm NOW STAT IV 04/28/17 15:42 04/28/17 15:44 DC 04/28/17 16:23 4.5 GM Vancomycin HCl 2000 mg/Sodium Chloride 540 ml @ 200 mls/hr ONE STAT IV 04/28/17 15:42 04/28/17 18:23 DC 04/28/17 16:28 200 MLS/HR Sodium Chloride 500 ml @ 999 mls/hr Q31M STAT IV 04/28/17 16:10 04/28/17 16:40 DC 04/28/17 16:23 999 MLS/HR Sodium Chloride 1,000 ml @ 125 mls/hr Q8H STAT IV 04/28/17 16:54 04/29/17 00:53 04/28/17 17:21 125 MLS/HR Acetaminophen 100 ml @ 400 mls/hr NOW STAT IV 04/28/17 17:21 04/28/17 17:35 DC 04/28/17 17:57 400 MLS/HR ECG Indication: tachycardia Rate (beats per minute): 126 Rhythm: atrial fibrillation (with RVR) Findings: no acute ischemic change, no ectopy Comparison ECG Date: 03/31/2017 Change: rate increased with RVR, Otherwise similar. ED Course 0300: Patient evaluated and code sepsis called. 05:45: d/w medicine hospitalist, Dr. Hemalatha Avila, who will evaluate the patient for admission. Medical Decision I reviewed the patient's past medical history, medications, and the nursing notes as described above. DDx: Sepsis, pneumonia, UTI/pelonephritis, cellulitis, DVT, PE, intra-abdominal infection The patient is a 77-year-old woman with a complicated past medical history of A. fib on Coumadin, status post recent large abdominal hematoma in the setting of Lovenox use status post evacuation and wound VAC, history of DVT, history of MRSA and pseudomonas sepsis who presents emergency Department with acute onset fevers and chills per history of present illness. Arrival the patient is uncomfortable in mild distress heart rate in the 140s in A. fib with RVR. Blood pressure hypertensive with systolic in the 140s. The patient's complicated history in mild distress with sepsis was activated. Patient was cultured and antibiotics ordered once creatinine confirmed. Considering unclear history of CHF IV fluid resuscitation was done cautiously. First 500 mL bolus with good effect on heart rate with improvement to the 100s-110s. UA positive for blood but otherwise negative for UTI. Chest x-ray unremarkable. Patient's history, as well as current wound VAC as well as being subtherapeutic on her Coumadin intra-abdominal infection and PE in the differential. Otherwise will plan to get a duplex of lower extremities once heart rate is more stable. CT chest negative for PE and with question of ground glass opacities in the lungs. Otherwise CT of the abdomen without any acute abnormalities. Limited bedside US with grossly normal RV and LV function. Given additional IVF and continuing to improve with IV fluids and antibiotics. Duplex ordered and pending to rule out DVT and lower extremities. Otherwise patient's source is likely cellulitis. Case was discussed with medicine hospitalist will admit the patient for further management. Medication Reconcilliation Current Medication List: was personally reviewed by me Blood Pressure Screening Blood pressure disposition: Elevated BP felt to be situational Impression Primary Impression: Sepsis Additional Impression: Cellulitis Critical Care I have personally spent greater than 35 minutes of critical care time in the direct management of this patient. This includes bedside care, interpretation of diagnostic studies, and testing, discussion with consultants, patient, and family members, and other required patient management activities. This 35 minutes is in excess of all separately billable procedures. Departure Information Referrals Jeremie Parmar M.D. (PCP) Forms HOME CARE DOCUMENTATION FORM, IMPORTANT VISIT INFORMATION Patient Instructions My [facility] Problem Qualifiers
--- NOTE | 2017-04-28 17:19 | DIAGNOSTIC IMAGING REPORT ---
(CHEST FOR PE) ANGIO WITH CLINICAL HISTORY: 77 years-old Female presenting with fever and tachycardia. TECHNIQUE: Multidetector CT angiography of the chest was performed after administration of intravenous contrast. 3-D volumetric and/or maximum intensity projection (MIP) images were subsequently reconstructed for review. IV contrast: 120 mL of Optiray 320. A dose lowering technique was used consistent with the principles of ALARA (as low as reasonably achievable). COMPARISON: Chest x-ray performed earlier the same day. CT DOSE (mGy.cm): The estimated cumulative dose is 1543.21 mGy.cm. FINDINGS: [employer] topogram: Unremarkable. Pulmonary vasculature: The study is suboptimal secondary to respiratory motion artifact but remains diagnostic for central pulmonary arteries. No central filling defect to suggest embolus. Main pulmonary artery is not enlarged. No flattening of the interventricular septum. No intracardiac intracardiac filling defect. No reflux of contrast into the hepatic veins. Remaining chest: On soft tissue windows, diminutive left lobe of the thyroid. Few subcentimeter mediastinal and hilar lymph nodes, likely reactive. No enlarged lymph nodes by CT size criteria. Atherosclerosis of the aortic arch and descending thoracic aorta. Left atrial enlargement. Aortic valve and coronary artery calcification. No pericardial or pleural effusion. Prominent splenic arterial calcification noted. Postcholecystectomy changes. On lung windows, Mosaic attenuation in the lungs could suggest small airways disease. More dense scattered groundglass opacity at the lung bases. Evaluation degraded by respiratory motion artifact. No apparent interlobular septal thickening. Airways patent. On bone windows, degenerative changes of the spine. Degenerative changes of the bilateral glenohumeral joints. IMPRESSION: 1. Allowing for respiratory motion artifact, no central pulmonary embolus. Degraded evaluation of the segmental and subsegmental pulmonary arteries. 2. Mosaic attenuation in the lungs could suggest small airways disease. 3. Scattered groundglass opacities at the lung bases. This could represent areas of atelectasis, infection, or edema. No interlobular septal thickening to substantiate the presence of pulmonary edema. 4. Left atrial enlargement. Electronically signed by: Yves Michaud M.D. 04/28/2017 5:18 PM Dictated Date/Time: 04/28/2017 5:11 PM
[2017-04-28] MEDS ORDERED: ACETAMINOPHEN IV 100 ML IV STA (17:21)
--- NOTE | 2017-04-28 17:30 | DIAGNOSTIC IMAGING REPORT ---
ABD/PELVIS IV CONTRAST ONLY CLINICAL HISTORY: 77 years-old Female presenting with fever, sepsis, hematuria. TECHNIQUE: Multidetector CT of the abdomen and pelvis was performed after the administration of intravenous contrast. IV contrast: 120 mL of Optiray 320. A dose lowering technique was used consistent with the principles of ALARA (as low as reasonably achievable). COMPARISON: 04/13/2014. CT DOSE (mGy.cm): The estimated cumulative dose is 1543.21 inclusive of the CTA chest.. FINDINGS: Venipuncturist topogram: Unremarkable. Lung bases: Mosaic attenuation at the lung bases with scattered groundglass and bandlike opacities. Biatrial enlargement. No pericardial or pleural effusion. Liver: The inferior right hepatic lobe has a somewhat nodular contour. Parenchymal calcification could suggest prior granulomatous infection. No focal liver lesion. Patent hepatic vasculature. Biliary: Mild prominence of intrahepatic bile ducts likely due to a reservoir effect in the post cholecystectomy state. No common duct dilatation. Gallbladder surgically absent. Pancreas: Mild parenchymal atrophy. Spleen: Parenchymal calcification could suggest prior granulomatous infection. Adrenal glands: Normal. Kidneys and ureters: Persistent dilation of the right renal pelvis without ureteral dilatation, likely pelviectasis. This could be due to a congenital or acquired ureteropelvic junction obstruction. No hydronephrosis. Ureters normal. No nephrolithiasis. Bladder: Bladder decompressed with a Almanza catheter. Allowing for underdistention, bladder wall thickening again noted. No perivesicular inflammatory change. Pelvic organs: Uterus surgically absent. Ovaries likely also absent. Bowel: Sigmoid colon and small bowel contained within a large left ventral hernia. No bowel obstruction. Postsurgical changes in the right lower quadrant possibly from prior appendectomy. Peritoneal cavity: No free fluid or intraperitoneal gas. Vasculature: Atherosclerosis of the normal caliber abdominal aorta. IVC patent. Ectasia of the left common iliac artery which measures up to 1.8 cm in maximal transverse dimension. Lymph nodes: No enlarged lymph nodes in the abdomen or pelvis. Abdominal wall: Large ventral hernia that projects to the left of midline containing sigmoid colon and small bowel with the associated mesentery. This has a relatively wide neck. No evidence of obstruction. No associated fluid or fat infiltration. Defect of the cutis and subcutaneous fat in the right lower quadrant with an overlying wound VAC in place. Infiltration extends to the underlying atrophic musculature of the abdominal wall. No extraperitoneal or intraperitoneal extension of inflammatory change. No focal fluid collection. Musculoskeletal: Severe degenerative changes of the right hip joints and advanced degenerative change of the left hip joint. Degenerative changes of the spine. IMPRESSION: 1. No nephrolithiasis. 2. Defect of the anterior abdominal wall in the right lower quadrant with associated subjacent infiltration and a wound VAC in place. No fluid collection or deep extension. 3. Large left ventral hernia containing sigmoid colon and small bowel without evidence of obstruction. 4. Decompressed bladder with persistent wall thickening. This again suggest cystitis, possibly infectious, postinflammatory, or post radiation. Correlate with urinalysis. 5. Severe degenerative changes. 6. Mosaic attenuation at the lung bases suggestive of small airways disease likely with scattered atelectasis. 7. Bilateral enlargement. Electronically signed by: Yves Michaud M.D. 04/28/2017 5:28 PM Dictated Date/Time: 04/28/2017 5:18 PM
[2017-04-28] MEDS ORDERED: POLYETHYLENE (MIRALAX) 17 GM PACK PO PRN (18:30)
[2017-04-28] MEDS ORDERED: ONDANSETRON INJ 2 MG/ML 2 ML VIAL IV PRN (18:30)
[2017-04-28] MEDS ORDERED: ACETAMINOPHEN 325 MG TAB PO PRN (18:30)
--- NOTE | 2017-04-28 18:59 | DIAGNOSTIC IMAGING REPORT ---
ULTRASOUND VENOUS DOPPLER LWR EXT BILA CLINICAL HISTORY: BLE swelling/redness COMPARISON STUDY: March 31, 2017 FINDINGS: Real-time and color flow Doppler imaging were performed. Flow was seen within the femoral, popliteal and calf veins with no intraluminal thrombus demonstrated. The saphenous vein is patent. IMPRESSION: No evidence of lower extremity DVT. Electronically signed by: Cornelius Morin M.D. 04/28/2017 6:58 PM Dictated Date/Time: 04/28/2017 6:57 PM
--- NOTE | 2017-04-28 19:16 | History and Physical ---
History & Physical Date & Time of Service: Apr 28, 2017 at 18:36 Chief Complaint: FEVER Primary Care Physician: Jeremie Parmar M.D. History of Present Illness Source: patient, family This is a 77 yo F with PMHx of HTN, chronic afib, on coumadin, multiple DVTs, PVD, carotid stenosis s/p R CEA, hypothyroidism, History of large LLQ abdomen hematoma s/p wound vac placement, hx of MRSA and Pseudomonas sepsis, hx of pacemaker in situ now s/p removal, Elevated troponin secondary to demand ischemia, LOUIS, and Left nondisplaced hairline fracture proximal fibular shaft. The pt underwent elective colonoscopy on November 28 where she required being bridged with lovenox, due to history of atrial fib. She developed a large right lower abdomen hematoma. She was transferred at that time to [facility] where was also found to have DVT in the Right axillary and subclavian veins. She was placed back on lovenox bridge to warfarin.After this the pt developed redness around the abdominal incision. She required readmission from December 16 for cellulitis of the abdominal wall, was given IV abx and infection which resolved. She was again admitted from Jan 15 with MRSA and pseudomonas sepsis requiring iv abx. They determined she had necrotizing cellulitis where she required an extended IV antibiotic tx where she had a PICC line placed, the PICC line has since been removed. The patient was then again admitted to [facility] on February 24 with sepsis of the abdominal wall. She had a wound vac placed on the RLQ abdomen, and has home health services change this 2-3x per week. A unipolar pacemaker was placed approximately in mid February [address] Wagoner at [facility], she follows with Reanna Esparza with cardiology. The patient was again admitted to [facility] on 03/28 for sepsis secondary to infected pacemaker and was transferred to [facility] emergently, and underwent pacemaker removal. She was discharged from [facility] on 04/10/17 and instructed to complete a course of Bactrim. Pt reports the medication initially caused GI upset so skipped 3 days worth, but then restarted taking this on 04/16 to complete the course. The patient is accompanied by her daughter, Lorrie, and Marcin. The patient was recently seen by her PCP on 04/20/17 where she had a good evaluation, and well healing pacemaker site. Pt reports feeling well until this morning where she was cold and had shaking chills. Her daughter checked her temperature , found to be febrile at 101 F. Both the patient and daughter noticed erythema of the LLE which began today as a small spot around her ankle, and has progressively spread upward quite rapidly from below her knee at 3pm to now mid- lateral thigh at 6:30pm. She denies any trauma to the leg, falls, or other possible etiology of skin break. She admits to feeling weak. She denies chest pain or shortness of breath. Past Medical/Surgical History Left lower extremity cellulitis Chronic atrial fibrillation on Coumadin History of multiple DVTs PVD Carotid artery stenosis s/p R CEA Hypothyroidism History of large LLQ abdomen hematoma s/p wound vac placement History of MRSA and Pseudomonas sepsis History of pacemaker in situ now s/p removal Elevated troponin- demand ischemia LOUIS Left nondisplaced hairline fracture proximal fibular shaft Surgical history: Pacemaker in situ insertion January 2017, s/p removal Mar 2017 Appendectomy Cartoid endarterectomy cataract surgery total abdominal hysterectomy vericose vein ligation Family History Cancer Diabetes mellitus Heart disease Hypertension Social History Smoking Status: Never Smoker Smokeless Tobacco Use: No Alcohol Use: none Drug Use: none Marital Status: Housing status: lives with family Occupational Status: retired 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 of MDRO: MRSA Allergies Coded Allergies: Oxytetracycline (Verified Allergy, Intermediate, "felt like a big ball in my stomach", 02/24/17) Polymyxin B (Verified Allergy, Intermediate, "felt like a big ball in my stomach", 02/24/17) Home Medications Scheduled Atorvastatin (Lipitor), 40 MG PO DAILY Cholecalciferol (Vitamin D 1000 Unit), 1,000 INTER.UNIT PO DAILY Digoxin (Digoxin), 0.25 MG PO DAILY Escitalopram Oxalate (Escitalopram Oxalate), 20 MG PO DAILY Metoprolol Tartrate (Lopressor), 50 MG PO BID Potassium Ext Rel (Klor-Con), 10 MEQ PO DAILY Warfarin Sodium (Warfarin Sodium), 3 MG PO DIRECTED Review of Systems Constitutional: + Fever and shaking chills Eyes: No diplopia, no worsening or blurred vision ENT: normal hearing, no trouble swallowing Respiratory: No cough, sputum, dyspnea at rest or on exertion Cardiovascular: No chest pain, tightness or palpitations Abdomen: No pain, nausea, vomiting, diarrhea or constipation Musculoskeletal: See HPI. Neurologic: + Generalized weakness. No numbness/tingling, or balance problems Psychiatric: No anxiety or depression Skin: No rash or itch Physical Exam Vital Signs Date Time Temp Pulse Resp B/P (MAP) Pulse Ox O2 Delivery O2 Flow Rate FiO2 04/28/17 17:23 39.3 04/28/17 17:21 39.3 118 23 131/97 92 Room Air 04/28/17 16:28 119 23 124/90 04/28/17 15:31 96 Room Air 04/28/17 15:29 136 20 135/102 96 Room Air 04/28/17 14:57 141 04/28/17 14:50 39.2 131 20 137/84 90 Room Air General: awake, alert, no apparent distress Head: Normocephalic, atraumatic ENT: PERRL, EOMI, no pharyngeal exudate, mucous membranes moist Chest: On 2 L via NC, slightly diminished breath sounds at bases bilaterally, no adventitious breath sounds Cardiac: Irregularly irregular, + systolic murmur, RUSB grade 3/6, no JVD, normal peripheral pulses, good capillary refill Abdominal: multiple scars, NABS x 4, + LLQ abdominal hernia, + wound vac on RLQ draining, soft, nontender to palpation, no rebound, guarding or tenderness Extremities: + Erythema originating in the left ankle with some lateral streaking up to mid thigh, + chronic venous stasis changes, +1 nonpitting edema BLE, minor tenderness to palpation of the left calf Psych: Normal mood and affect Neuro: AAO x 3, strength intact bilaterally and related 4/5, no motor deficits, speech is clear, no peripheral sensory deficits Diagnostics Laboratory Results Results Past 24 Hours Test 04/28/17 15:00 04/28/17 15:05 04/28/17 15:10 04/28/17 17:51 Range/Units Urine Color YELLOW Urine Appearance CLEAR CLEAR Urine pH 5.0 4.5-7.5 Urine Specific [place] 1.022 1.000-1.030 Urine Protein 1+ NEG Urine Glucose (UA) NEG NEG Urine Ketones NEG NEG Urine Occult Blood TRACE NEG Urine Nitrite NEG NEG Urine Bilirubin NEG NEG Urine Urobilinogen NEG NEG Urine Leukocyte Esterase NEG NEG Urine WBC (Auto) 1-5 0-5 /hpf Urine RBC (Auto) 0-4 0-4 /hpf Urine Hyaline Casts (Auto) 1-5 0-5 /lpf Urine Epithelial Cells (Auto) 10-20 0-5 /lpf Urine Bacteria (Auto) NEG NEG White Blood Count 17.82 4.8-10.8 K/uL Red Blood Count 3.65 4.2-5.4 M/uL Hemoglobin 11.6 12.0-16.0 g/dL Hematocrit 34.2 37-47 % Mean Corpuscular Volume 93.7 80-100 fL Mean Corpuscular Hemoglobin 31.8 25-34 pg Mean Corpuscular Hemoglobin Concent 33.9 32-36 g/dl Platelet Count 238 130-400 K/uL Mean Platelet Volume 9.0 7.4-10.4 fL Neutrophils (%) (Auto) 90.8 % Lymphocytes (%) (Auto) 4.4 % Monocytes (%) (Auto) 3.8 % Eosinophils (%) (Auto) 0.4 % Basophils (%) (Auto) 0.1 % Neutrophils # (Auto) 16.18 1.4-6.5 K/uL Lymphocytes # (Auto) 0.78 1.2-3.4 K/uL Monocytes # (Auto) 0.67 0.11-0.59 K/uL Eosinophils # (Auto) 0.08 0-0.5 K/uL Basophils # (Auto) 0.02 0-0.2 K/uL RDW Standard Deviation 57.5 36.4-46.3 fL RDW Coefficient of Variation 16.6 11.5-14.5 % Immature Granulocyte % (Auto) 0.5 % Immature Granulocyte # (Auto) 0.09 0.00-0.02 K/uL Prothrombin Time 14.2 9.0-12.0 SECONDS Prothromb Time International Ratio 1.3 0.9-1.1 Activated Partial Thromboplast Time 29.2 21.0-31.0 SECONDS Partial Thromboplastin Ratio 1.1 Sodium Level 134 136-145 mmol/L Potassium Level 4.7 3.5-5.1 mmol/L Chloride Level 102 98-107 mmol/L Carbon Dioxide Level 26 21-32 mmol/L Anion Gap 6.0 3-11 mmol/L Blood Urea Nitrogen 34 7-18 mg/dl Creatinine 1.20 0.60-1.20 mg/dl Est Creatinine Clear Calc Drug Dose 46.7 ml/min Estimated GFR () 50.5 Estimated GFR (Non- 43.6 BUN/Creatinine Ratio 28.0 10-20 Random Glucose 136 70-99 mg/dl Calcium Level 8.8 8.5-10.1 mg/dl Magnesium Level 1.8 1.8-2.4 mg/dl Total Bilirubin 0.4 0.2-1 mg/dl Aspartate Amino Transf (AST/SGOT) 78 15-37 U/L Alanine Aminotransferase (ALT/SGPT) 47 12-78 U/L Alkaline Phosphatase 112 45-117 U/L Troponin I 0.165 0-0.045 ng/ml Pro-B-Type Natriuretic Peptide 1136 0-1800 pg/ml Total Protein 7.8 6.4-8.2 gm/dl Albumin 2.4 3.4-5.0 gm/dl Globulin 5.4 2.5-4.0 gm/dl Albumin/Globulin Ratio 0.4 0.9-2 Bedside Lactic Acid Venous 1.41 0.90-1.70 mmol/L Microbiology Results 04/28/17 Blood Culture, Received Pending 04/28/17 Blood Culture, Received Pending 04/28/17 Urine Culture, Received Pending Diagnostic Radiology CHEST ONE VIEW PORTABLE CLINICAL HISTORY: FEVER COMPARISON STUDY: 03/30/2017 FINDINGS: The examination is limited secondary to respiratory motion artifact. The heart is mildly enlarged. There is stable right hilar prominence. There is no overt failure. There is no focal pulmonary consolidation. Arthritic changes are present within the right shoulder. The previously identified right subclavian central venous pacemaker is no longer present.[ IMPRESSION: AP portable study. No acute findings. Electronically signed by: Cornelius Morin M.D. 04/28/2017 3:32 PM Dictated Date/Time: 04/28/2017 3:31 PM The status of this report is Signed. (CHEST FOR PE) ANGIO WITH CLINICAL HISTORY: 77 years-old Female presenting with fever and tachycardia. TECHNIQUE: Multidetector CT angiography of the chest was performed after administration of intravenous contrast. 3-D volumetric and/or maximum intensity projection (MIP) images were subsequently reconstructed for review. IV contrast: 120 mL of Optiray 320. A dose lowering technique was used consistent with the principles of ALARA (as low as reasonably achievable). COMPARISON: Chest x-ray performed earlier the same day. CT DOSE (mGy.cm): The estimated cumulative dose is 1543.21 mGy.cm. FINDINGS: [employer]er topogram: Unremarkable. Pulmonary vasculature: The study is suboptimal secondary to respiratory motion artifact but remains diagnostic for central pulmonary arteries. No central filling defect to suggest embolus. Main pulmonary artery is not enlarged. No flattening of the interventricular septum. No intracardiac intracardiac filling defect. No reflux of contrast into the hepatic veins. Remaining chest: On soft tissue windows, diminutive left lobe of the thyroid. Few subcentimeter mediastinal and hilar lymph nodes, likely reactive. No enlarged lymph nodes by CT size criteria. Atherosclerosis of the aortic arch and descending thoracic aorta. Left atrial enlargement. Aortic valve and coronary artery calcification. No pericardial or pleural effusion. Prominent splenic arterial calcification noted. Postcholecystectomy changes. On lung windows, Mosaic attenuation in the lungs could suggest small airways disease. More dense scattered groundglass opacity at the lung bases. Evaluation degraded by respiratory motion artifact. No apparent interlobular septal thickening. Airways patent. On bone windows, degenerative changes of the spine. Degenerative changes of the bilateral glenohumeral joints. IMPRESSION: 1. Allowing for respiratory motion artifact, no central pulmonary embolus. Degraded evaluation of the segmental and subsegmental pulmonary arteries. 2. Mosaic attenuation in the lungs could suggest small airways disease. 3. Scattered groundglass opacities at the lung bases. This could represent areas of atelectasis, infection, or edema. No interlobular septal thickening to substantiate the presence of pulmonary edema. 4. Left atrial enlargement. Electronically signed by: Yves Michaud M.D. 04/28/2017 5:18 PM Dictated Date/Time: 04/28/2017 5:11 PM The status of this report is Signed. ABD/PELVIS IV CONTRAST ONLY CLINICAL HISTORY: 77 years-old Female presenting with fever, sepsis, hematuria. TECHNIQUE: Multidetector CT of the abdomen and pelvis was performed after the administration of intravenous contrast. IV contrast: 120 mL of Optiray 320. A dose lowering technique was used consistent with the principles of ALARA (as low as reasonably achievable). COMPARISON: 04/13/2014. CT DOSE (mGy.cm): The estimated cumulative dose is 1543.21 inclusive of the CTA chest.. FINDINGS: [employer]er topogram: Unremarkable. Lung bases: Mosaic attenuation at the lung bases with scattered groundglass and bandlike opacities. Biatrial enlargement. No pericardial or pleural effusion. Liver: The inferior right hepatic lobe has a somewhat nodular contour. Parenchymal calcification could suggest prior granulomatous infection. No focal liver lesion. Patent hepatic vasculature. Biliary: Mild prominence of intrahepatic bile ducts likely due to a reservoir effect in the post cholecystectomy state. No common duct dilatation. Gallbladder surgically absent. Pancreas: Mild parenchymal atrophy. Spleen: Parenchymal calcification could suggest prior granulomatous infection. Adrenal glands: Normal. Kidneys and ureters: Persistent dilation of the right renal pelvis without ureteral dilatation, likely pelviectasis. This could be due to a congenital or acquired ureteropelvic junction obstruction. No hydronephrosis. Ureters normal. No nephrolithiasis. Bladder: Bladder decompressed with a Almanza catheter. Allowing for underdistention, bladder wall thickening again noted. No perivesicular inflammatory change. Pelvic organs: Uterus surgically absent. Ovaries likely also absent. Bowel: Sigmoid colon and small bowel contained within a large left ventral hernia. No bowel obstruction. Postsurgical changes in the right lower quadrant possibly from prior appendectomy. Peritoneal cavity: No free fluid or intraperitoneal gas. Vasculature: Atherosclerosis of the normal caliber abdominal aorta. IVC patent. Ectasia of the left common iliac artery which measures up to 1.8 cm in maximal transverse dimension. Lymph nodes: No enlarged lymph nodes in the abdomen or pelvis. Abdominal wall: Large ventral hernia that projects to the left of midline containing sigmoid colon and small bowel with the associated mesentery. This has a relatively wide neck. No evidence of obstruction. No associated fluid or fat infiltration. Defect of the cutis and subcutaneous fat in the right lower quadrant with an overlying wound VAC in place. Infiltration extends to the underlying atrophic musculature of the abdominal wall. No extraperitoneal or intraperitoneal extension of inflammatory change. No focal fluid collection. Musculoskeletal: Severe degenerative changes of the right hip joints and advanced degenerative change of the left hip joint. Degenerative changes of the spine. IMPRESSION: 1. No nephrolithiasis. 2. Defect of the anterior abdominal wall in the right lower quadrant with associated subjacent infiltration and a wound VAC in place. No fluid collection or deep extension. 3. Large left ventral hernia containing sigmoid colon and small bowel without evidence of obstruction. 4. Decompressed bladder with persistent wall thickening. This again suggest cystitis, possibly infectious, postinflammatory, or post radiation. Correlate with urinalysis. 5. Severe degenerative changes. 6. Mosaic attenuation at the lung bases suggestive of small airways disease likely with scattered atelectasis. 7. Bilateral enlargement. Electronically signed by: Yves Michaud M.D. 04/28/2017 5:28 PM Dictated Date/Time: 04/28/2017 5:18 PM The status of this report is Signed. EKG Vent. rate 119 BPM RI interval * ms QRS duration 86 ms QT/QTc 304/427 ms P-R-T axes * -26 -7 Atrial fibrillation with rapid ventricular response Abnormal ECG When compared with ECG of 28-APR-2017 15:25, No significant change was found Confirmed by ANTONIA MAZARIEGOS MD ([id number]) on 04/28/2017 6:32:23 PM Impression Assessment and Plan This is a 77 yo F with PMHx of HTN, chronic afib, on coumadin, multiple DVTs, PVD, carotid stenosis s/p R CEA, hypothyroidism, History of large LLQ abdomen hematoma s/p wound vac placement, hx of MRSA and Pseudomonas sepsis, hx of pacemaker in situ now s/p removal, Elevated troponin secondary to demand ischemia, LOUIS, and Left nondisplaced hairline fracture proximal fibular shaft. This is her 5th hospital admission to our facility since November, and 6th hospitalization including most recent stay at [facility]. Sepsis - left lower extremity cellulitis - Admit to tele - Likely that this is MRSA infection with the patient's history of multiple MRSA /Pseudomonas infections. Multiple nosocomial infectious possibilities. The patient finished a course of Bactrim approximately 10 days ago for MRSA hx. - Blood cultures in process, UA and culture to follow. Almanza catheter inserted in the ER - Started on vancomycin and zosyn, continue - Leukocytosis 17K with a left shift, lactic acid negative. - Consult infectious disease for abx recommendations - Wound consult for abdominal wound vac A. fib with RVR on chronic atrial fib - Will continue metoprolol 50 mg BID and digoxin 0.25 mg daily as home medications along with maintenance fluids - discussed with attending. - EKGs QAM x 2 days - Patient on telemetry for continuous monitoring. - Continue Coumadin 3 mg daily, follow INRs Elevated troponin - Possible demand ischemia mismatch secondary to afib - troponin actually improved compared to last admission. - Initial troponin 0.165 - Will trend trop x 2 more sets HTN - Continue metoprolol as above - BPs stable CKD stage III - Cr is baseline at 1.2 Left Nondisplaced hairline fracture proximal fibular shaft - S/p fall, no interventions for this fracture DVT: coumadin, scds, teds CODE STATUS: FULL CODE Disposition: From home, has home health services in place for wound vac, CM to assist with discharge planning. Level of Care Telemetry Resuscitation Status FULL RESUSCITATION VTE Prophylaxis VTE Risk Assessment Done? Y/N: Yes Risk Level: Very Low Given or contraindicated: Warfarin (Coumadin), T.E.D. Stockings, SCD's Reviewed: Pt Seen/Exam by Me History Pt is feeling a bit better. "I think my fever broke." Notes that this just started today. Family agrees that her LE redness was not there yesterday. Lines are drawn and it is already receding. Family also notes improvement. No chest pain or SOB. A little nausea, but no emesis. Agree with HPI/ROS as noted. General Appearance: no apparent distress, obese Respiratory: normal breath sounds, no respiratory distress Cardiovascular: normal peripheral pulses, regular rate, rhythm Gastrointestinal: non tender, soft Extremities: calf tenderness (on the L), pedal edema (L>R, R sided appears chronic) Neurologic/Psychiatric: alert, normal mood/affect, oriented x 3 Skin Characteristics: other (L LE with redness and erythema, regressing from marker lines) Assessment/Plan Agree with plan as outlined above New LLE cellulitis Has been off of abx Already improving on current abx LE US neg for DVT Trop with mild elevation, likely demand ischemia Afib with RVR, likely related to infection and improving with IVF Will give usual home meds but hold on additional meds to avoid hypoTN in the setting of infection Tele monitor Recent sepsis related to pacer No plans for reinsertion Family states pacer was interrogated at [facility] and found to have no events in the 3 -4 weeks it was in place and current thought is pt will be fine without it Family also states it was placed for asx hypoTN in the 30s systolic Adding probiotics, which pt should continue at d/c, discussed with family
[2017-04-28] MEDS ORDERED: PIPERACILL/TAZOBAC CONSULT ACTIVE PRN (19:45)
[2017-04-28] MEDS ORDERED: VANCOMYCIN CONSULT ACTIVE PRN (19:45)
--- NOTE | 2017-04-28 19:59 | Pharmacy Progress Note ---
Pharmacy Abx Initial Consult Date of Service Apr 28, 2017. Pharmacy Dosing Scope Date of Consult: 04/28/17 Consultation requested by: [facility] is consulted to initiate Vancomycin/Zosyn IV dosing therapy, order appropriate labs and adjust drug dose/frequency. Subjective The patient is a 77 year old female admitted on . Objective Height (Feet): 5 Height (Inches): 5.00 Weight (Kilograms): 103.000 Vital Signs (Past 12Hrs) Vital Signs Past 12 Hours Date Time Temp Pulse Resp B/P (MAP) Pulse Ox O2 Delivery O2 Flow Rate FiO2 04/28/17 17:23 39.3 04/28/17 17:21 39.3 118 23 131/97 92 Room Air 04/28/17 16:28 119 23 124/90 04/28/17 15:31 96 Room Air 04/28/17 15:29 136 20 135/102 96 Room Air 04/28/17 14:57 141 04/28/17 14:50 39.2 131 20 137/84 90 Room Air Lab Results (24Hrs) Laboratory Tests (24 Hours) Test 04/28/17 15:05 White Blood Count 17.82 K/uL (4.8-10.8) H Red Blood Count 3.65 M/uL (4.2-5.4) L Hemoglobin 11.6 g/dL (12.0-16.0) L Hematocrit 34.2 % (37-47) L Mean Corpuscular Volume 93.7 fL (80-100) Mean Corpuscular Hemoglobin 31.8 pg (25-34) Mean Corpuscular Hemoglobin Concent 33.9 g/dl (32-36) Platelet Count 238 K/uL (130-400) Mean Platelet Volume 9.0 fL (7.4-10.4) Neutrophils (%) (Auto) 90.8 % Lymphocytes (%) (Auto) 4.4 % Monocytes (%) (Auto) 3.8 % Eosinophils (%) (Auto) 0.4 % Basophils (%) (Auto) 0.1 % Neutrophils # (Auto) 16.18 K/uL (1.4-6.5) H Lymphocytes # (Auto) 0.78 K/uL (1.2-3.4) L Monocytes # (Auto) 0.67 K/uL (0.11-0.59) H Eosinophils # (Auto) 0.08 K/uL (0-0.5) Basophils # (Auto) 0.02 K/uL (0-0.2) Micro Results Date/Time Source Procedure Growth Status 04/28/17 15:08 Blood Blood Culture Pending Received 04/28/17 15:05 Blood Blood Culture Pending Received 04/28/17 15:00 Urine,Catheterized Urine Culture Pending Received Risk Factors for Resistance * History of infection with a multidrug-resistant organism: MRSA & pseudmonas sepsis Assessment & Plan Assessment 77 year old female initiated on IV Vanco & Zosyn for cellulitis, possible sepsis. Pt with CKD; Scr is at baseline at 1.2mg/dl. Pt BMI is > 35kg/m2 putting her at risk for vancomycin accumulation once Vd saturated/steady state is reached. Plan Vancomycin IV * Loading dose: 2,000 mg (19 mg/kg) given x 1 in ED * Maintenance dose: 1,250 mg IV (12 mg/kg) every 18 hours * Goal trough level for cellulitis/sepsis : 10 to 20 mcg/mL * Random level ordered for 05/01/17 @ 1330 * A less than traditional dose and/or extended dosing interval has/have been selected due to likelihood of drug accumulation in obese patient/patient with h/ o CKD. Piperacillin/tazobactam * 4.5 g bolus administered over 30 minutes, then 4.5 g IV extended infusion every 8 hours for CrCl greater than 20 mL/min * Aggressive dosing selected due to BMI 35 or more Pharmacy will continue to follow and will adjust dose/frequency as necessary. Thank you.
[2017-04-28 20:42] VITALS: BP 105/64; PULSE 102; TEMP 37; O2SAT 94; Ht 165.1 cm; Wt 102.9 kg
[2017-04-28] MEDS: PIPERACILL/TAZOBAC IV 4.5 GM in DEXTROSE 5% 100ML 100 ML IV SCH (21:34)
[2017-04-28 21:38] VITALS: BP 99/68; PULSE 81
[2017-04-28] MEDS: SODIUM CHLORIDE 0.9% 1000ML 1,000 ML IV SCH (21:38)
[2017-04-28] MEDS: METOPROLOL TARTRATE 50 MG TAB PO SCH (21:38)
[2017-04-28 23:59] VITALS: O2SAT 94
[2017-04-29] VITALS (11 sets, daily range): BP systolic 90–134; BP diastolic 51–68; PULSE 72–94; TEMP 36.3–36.9; O2SAT 94–99
[2017-04-29] MEDS: SODIUM CHLORIDE 0.9% 1000ML 1,000 ML IV SCH ×2 (05:20→13:22)
[2017-04-29] MEDS: PIPERACILL/TAZOBAC IV 4.5 GM in DEXTROSE 5% 100ML 100 ML IV SCH ×3 (05:20→21:18)
[2017-04-29 06:35] LABS: BASO % 0.1 %; BASO ABS # 0.01 K/uL (0-0.2); COMPLETE YES; EOS % 1.3 %; HEMATOCRIT 30.1 % (37-47); IG% 0.5 %; LYMPH % 8.7 %; MEAN CELL VOLUME 95.6 fL (80-100); MEAN CORPUSCULAR HEMOGLOBIN 30.2 pg (25-34); MEAN CORPUSCULAR HGB CONC 31.6 g/dl (32-36); MEAN PLATELET VOLUME 8.8 fL (7.4-10.4); MONO % 5.7 %; NEUT % 83.7 %; PLATELET COUNT 202 K/uL (130-400); RED BLOOD COUNT 3.15 M/uL (4.2-5.4); WHITE BLOOD COUNT 12.67 K/uL (4.8-10.8)
[2017-04-29 06:47] LABS: INR 1.5 (0.9-1.1); PROTHROMBIN TIME (PATIENT) 16.5 SECONDS (9.0-12.0)
[2017-04-29 07:05] LABS: BLOOD UREA NITROGEN 29 mg/dl (7-18); BUN/CREATININE RATIO 24.5 (10-20); CALCIUM 8.7 mg/dl (8.5-10.1); CARBON DIOXIDE 26 mmol/L (21-32); CHLORIDE 106 mmol/L (98-107); GLUCOSE 92 mg/dl (70-99); POTASSIUM 4.5 mmol/L (3.5-5.1); SODIUM 137 mmol/L (136-145)
[2017-04-29] MEDS: ESCITALOPRAM OXALATE 20 MG TAB PO SCH (07:46)
[2017-04-29] MEDS: SACCHAROMYCES BOUL (FLORASTOR) 250 MG CAP PO SCH (07:46)
[2017-04-29] MEDS: POTASSIUM CHLORIDE 10 MEQ TABCR PO SCH (07:47)
[2017-04-29] MEDS: ATORVASTATIN 40 MG TAB PO SCH (07:47)
[2017-04-29] MEDS: CHOLECALCIFEROL 1000 INTER.UNIT TAB PO SCH (07:47)
[2017-04-29] MEDS: DIGOXIN 0.25 MG TAB PO SCH (07:47)
[2017-04-29] MEDS: METOPROLOL TARTRATE 50 MG TAB PO SCH ×3 (07:49→21:19)
[2017-04-29] MEDS ORDERED: VANCOMYCIN INJ 1,250 MG in SODIUM CHLORIDE 0.9% 250ML 250 ML IV SCH (08:00)
--- NOTE | 2017-04-29 12:36 | ECHOCARDIOGRAM REPORT ---
*NOTICE TO RECEIVING LIBERTARIAN AGENCY This information is strictly Confidential and protected under [place] law. [place] law prohibits you from making any further disclosure of this information unless further disclosure is expressly permitted by the written consent of the person to whom it pertains or is authorized by law. A general authorization for the release of medical or other information is not sufficient for this purpose. Hospital accepts no responsibility if the information is made available to any other person, INCLUDING THE PATIENT. Interpretation Summary * Name: DAISY COLLINS V Study Date: 04/29/2017 09:24 AM BP: 103/51 mmHg * Patient Location: C.2T\S\E220\S\1 HR: 72 * : 1940 (M/d/yyyy) Gender: Female Height: 65 in * Age: 77 yrs Ethnicity: CA Weight: 227 lb * Ordering Physician: Lillie Dougherty * Performed By: Danya Anaya * * Reason For Study: A-FIB * BSA: 2.1 m2 * Normal left ventricular systolic function and wall motion. * Mild concentric left ventricular hypertrophy. * Moderate biatrial dilatation. * Severe calcific aortic stenosis. * Trace mitral regurgitation. * Mild pulmonic regurgitation. * Moderate tricuspid regurgitation. * Mildly elevated estimated right ventricular systolic pressure. * Elevated central venous pressure. * -- Conclusions -- * There is severe calcific aortic valve stenosis. Procedure Details * A complete two-dimensional transthoracic echocardiogram was performed (2D, M-mode, Doppler and color flow Doppler). Left Ventricle * The left ventricle is normal in size. * There is mild concentric left ventricular hypertrophy. * Ejection Fraction = 65-70%. * Left ventricular systolic function is normal. * The left ventricular wall motion is normal. Right Ventricle * The right ventricle is mildly dilated. * There is mild right ventricular hypertrophy. * The right ventricular systolic function is mildly reduced. * The right ventricular systolic function is reduced as assessed by tricuspid annular plane systolic excursion (TAPSE) (TAPSE <1.6 cm). Atria * The left atrium is moderately dilated. * The right atrium is moderately dilated. * No ASD detected; PFO is not assessed. Mitral Valve * There is moderate mitral annular calcification. * There is no mitral valve stenosis. * There is trace mitral regurgitation. Tricuspid Valve * The tricuspid valve is normal. * There is no tricuspid stenosis. * There is moderate tricuspid regurgitation. * Right ventricular systolic pressure is elevated at 30-40mmHg. Aortic Valve * The aortic valve is trileaflet. * There is severe calcific aortic valve stenosis. * Aortic valve area was calculated at 0.63 cm\S\2 using the continuity equation. * Dimensionless valve index 0.25. * No aortic regurgitation is present. Pulmonic Valve * The pulmonic valve is not well visualized. * The pulmonary valve is inadequately visualized, but the Doppler data is adequate for interpretation. * There is no pulmonic valvular stenosis. * Mild pulmonic valvular regurgitation. Great Vessels * The aortic root is normal size. Pericardium/Pleural * There is no pericardial effusion. Great Vessels * The inferior vena cava is mildly dilated. MMode 2D Measurements and Calculations IVSd 1.2 cm IVSs 1.9 cm LVIDd 4.0 cm LVIDs 2.5 cm LVPWd 1.2 cm LVPWs 2.0 cm IVS/LVPW 1.0 FS 36.6 % EDV(Teich) 68.9 ml ESV(Teich) 22.7 ml EF(Teich) 67.0 % EDV(cubed) 62.7 ml ESV(cubed) 16.0 ml EF(cubed) 74.5 % % IVS thick 52.6 % % LVPW thick 60.9 % LV mass(C)d 171.9 grams LV mass(C)dI 82.3 grams/m\S\2 LV mass(C)s 205.7 grams LV mass(C)sI 98.6 grams/m\S\2 SV(Teich) 46.1 ml SI(Teich) 22.1 ml/m\S\2 SV(cubed) 46.7 ml SI(cubed) 22.4 ml/m\S\2 Ao root diam 2.4 cm Ao root area 4.3 cm\S\2 ACS 0.78 cm LA dimension 4.6 cm asc Aorta Diam 3.0 cm LA/Ao 2.0 LVOT diam 1.8 cm LVOT area 2.6 cm\S\2 LVAd ap4 18.7 cm\S\2 LVLd ap4 6.0 cm EDV(MOD-sp4) 49.5 ml EDV(sp4-el) 49.7 ml LVAs ap4 9.5 cm\S\2 LVLs ap4 4.5 cm ESV(MOD-sp4) 16.2 ml ESV(sp4-el) 17.1 ml EF(MOD-sp4) 67.2 % EF(sp4-el) 65.7 % LVAd ap2 21.7 cm\S\2 LVLd ap2 7.3 cm EDV(MOD-sp2) 55.8 ml EDV(sp2-el) 54.6 ml LVAs ap2 10.6 cm\S\2 LVLs ap2 5.4 cm ESV(MOD-sp2) 18.6 ml ESV(sp2-el) 17.4 ml EF(MOD-sp2) 66.6 % EF(sp2-el) 68.1 % LVLd %diff 18.4 % EDV(MOD-bp) 58.5 ml LVLs %diff 16.9 % ESV(MOD-bp) 18.6 ml EF(MOD-bp) 68.2 % SV(MOD-sp4) 33.3 ml SI(MOD-sp4) 15.9 ml/m\S\2 SV(MOD-sp2) 37.2 ml SI(MOD-sp2) 17.8 ml/m\S\2 SV(MOD-bp) 39.9 ml SI(MOD-bp) 19.1 ml/m\S\2 SV(sp4-el) 32.6 ml SI(sp4-el) 15.6 ml/m\S\2 SV(sp2-el) 37.2 ml SI(sp2-el) 17.8 ml/m\S\2 Doppler Measurements and Calculations MV E max kaz 141.9 cm/sec MV dec time 0.21 sec Ao V2 max 353.2 cm/sec Ao max PG 50.4 mmHg Ao max PG (full) 47.4 mmHg Ao V2 mean 225.6 cm/sec Ao mean PG 26.2 mmHg Ao V2 VTI 70.4 cm EDGAR(V,A) 0.63 cm\S\2 EDGAR(V,D) 0.63 cm\S\2 LV V1 max PG 3.0 mmHg LV V1 max 86.7 cm/sec SV(Ao) 305.8 ml SI(Ao) 146.5 ml/m\S\2 PA V2 max 78.7 cm/sec PA max PG 2.5 mmHg PI end-d kaz 94.9 cm/sec TR max kaz 226.9 cm/sec
[2017-04-29] MEDS: WARFARIN SOD 3 MG TAB PO SCH (15:12)
--- NOTE | 2017-04-29 17:46 | Progress Note ---
Subjective Date of Service: Apr 29, 2017. Subjective Pt evaluation today including: conversation w/ patient, conversation w/ family , physical exam Patient denies fever, chills, nausea, vomiting. Patient reports that her pain in her right thigh and left leg has improved. Problem List Medical Problems: (1) Cellulitis Status: Acute (2) Cellulitis Status: Acute (3) Cellulitis of right leg Status: Acute (4) Cellulitis of right thigh Status: Acute (5) CHF (congestive heart failure) Status: Acute (6) Sepsis Status: Acute Review of Systems Constitutional: No fever, No chills Cardiac: No chest pain Abdomen: No pain, No nausea Musculoskeletal: No joint pain Female : No dysuria, No urinary frequency Neurologic: No memory loss, No paralysis Endo: No fatigue Skin: + rash, + color change All Other Systems: Reviewed and Negative Medications Current Inpatient Medications Medications (Trade) Dose Ordered Sig/Mariaelena Route Start Time Stop Time Status Last Admin Dose Admin Ioversol (Optiray 320) 111 ml UD PRN IV 04/28/17 16:15 05/02/17 16:14 Sodium Chloride 1,000 ml @ 100 mls/hr Q10H IV 04/28/17 18:26 05/28/17 18:25 04/29/17 13:22 100 MLS/HR Acetaminophen (Tylenol Tab) 650 mg Q4H PRN PO 04/28/17 18:30 05/28/17 18:29 Ondansetron HCl (Zofran Inj) 4 mg Q6H PRN IV 04/28/17 18:30 05/28/17 18:29 Polyethylene (Miralax Powder Packet) 17 gm DAILY PRN PO 04/28/17 18:30 05/28/17 18:29 Atorvastatin Calcium (Lipitor Tab) 40 mg DAILY PO 04/29/17 09:00 05/29/17 08:59 04/29/17 07:47 40 MG Cholecalciferol (Vitamin D Tab) 1,000 inter.unit DAILY PO 04/29/17 09:00 05/29/17 08:59 04/29/17 07:47 1,000 INTER.UNIT Digoxin (Lanoxin Tab) 0.25 mg DAILY PO 04/29/17 09:00 05/29/17 08:59 04/29/17 07:47 0.25 MG Escitalopram Oxalate (Lexapro Tab) 20 mg DAILY PO 04/29/17 09:00 05/29/17 08:59 04/29/17 07:46 20 MG Metoprolol Tartrate (Lopressor Tab) 50 mg BID PO 04/28/17 21:00 05/28/17 20:59 Potassium Chloride (Klor-Con M10) 10 meq DAILY PO 04/29/17 09:00 05/29/17 08:59 04/29/17 07:47 10 MEQ Warfarin Sodium (Coumadin Tab) 3 mg DAILY@1600 PO 04/29/17 16:00 05/29/17 15:59 04/29/17 15:12 3 MG Piperacillin Sod/ Tazobactam Sod 4.5 gm/Dextrose 120 ml @ 30 mls/hr Q8H IV 04/28/17 22:00 05/08/17 21:59 04/29/17 21:18 30 MLS/HR Piperacillin Sod/ Tazobactam Sod (Consult) 1 ea UD PRN N/A 04/28/17 19:45 05/28/17 19:44 Saccharomyces Boulardii (Florastor Cap) 250 mg DAILY PO 04/29/17 09:00 05/29/17 08:59 04/29/17 07:46 250 MG Daptomycin 450 mg/ Sodium Chloride 59 ml @ 100 mls/hr DAILY IV 04/30/17 09:00 05/10/17 08:59 Objective Vital Signs Date Time Temp Pulse Resp B/P (MAP) Pulse Ox O2 Delivery O2 Flow Rate FiO2 04/29/17 15:55 Room Air 04/29/17 15:46 36.3 85 18 98/67 (77) 96 Room Air 04/29/17 14:51 92 98 04/29/17 11:35 Room Air 04/29/17 11:06 36.7 85 20 100/64 (76) 96 Room Air 04/29/17 08:00 Room Air 04/29/17 07:49 106/68 (81) 04/29/17 07:47 91 04/29/17 07:02 36.6 79 20 96/62 (73) 98 Room Air 04/29/17 04:00 36.7 72 22 103/51 (68) 96 Room Air 04/29/17 04:00 94 Room Air 04/29/17 00:00 36.6 94 22 90/55 (67) 94 Room Air 04/28/17 23:59 94 Room Air 04/28/17 21:38 81 99/68 (78) 04/28/17 20:42 37.0 102 20 105/64 94 Room Air 04/28/17 20:20 37.1 99 17 75/50 93 04/28/17 20:00 99 17 75/50 93 Room Air 04/28/17 19:40 97 19 75/47 92 Room Air 65/44 Physical Exam General Appearance: WD/WN, no apparent distress Neck: supple, no adenopathy Respiratory/Chest: chest non-tender, lungs clear, normal breath sounds Cardiovascular: no gallop, no JVD, + irregularly irregular Abdomen: normal bowel sounds, non tender, soft Extremities: normal range of motion, + pertinent finding (right thigh has decreased erythema as compared to original exam. There are also markings from marker done by admitting physician that show improveemnt of patients erythema on left leg) Lymphatic: no adenopathy Laboratory Results Last 24 Hours Test 04/28/17 17:51 04/28/17 20:49 04/29/17 05:00 04/29/17 06:22 Digoxin Level 0.4 ng/ml Creatine Kinase MB < 0.5 ng/ml 0.6 ng/ml Creatine Kinase MB Ratio Troponin I 0.210 ng/ml 0.181 ng/ml White Blood Count 12.67 K/uL Red Blood Count 3.15 M/uL Hemoglobin 9.5 g/dL Hematocrit 30.1 % Mean Corpuscular Volume 95.6 fL Mean Corpuscular Hemoglobin 30.2 pg Mean Corpuscular Hemoglobin Concent 31.6 g/dl Platelet Count 202 K/uL Mean Platelet Volume 8.8 fL Neutrophils (%) (Auto) 83.7 % Lymphocytes (%) (Auto) 8.7 % Monocytes (%) (Auto) 5.7 % Eosinophils (%) (Auto) 1.3 % Basophils (%) (Auto) 0.1 % Neutrophils # (Auto) 10.61 K/uL Lymphocytes # (Auto) 1.10 K/uL Monocytes # (Auto) 0.72 K/uL Eosinophils # (Auto) 0.17 K/uL Basophils # (Auto) 0.01 K/uL RDW Standard Deviation 59.6 fL RDW Coefficient of Variation 16.9 % Immature Granulocyte % (Auto) 0.5 % Immature Granulocyte # (Auto) 0.06 K/uL Prothrombin Time 16.5 SECONDS Prothromb Time International Ratio 1.5 Sodium Level 137 mmol/L Potassium Level 4.5 mmol/L Chloride Level 106 mmol/L Carbon Dioxide Level 26 mmol/L Anion Gap 5.0 mmol/L Blood Urea Nitrogen 29 mg/dl Creatinine 1.20 mg/dl Est Creatinine Clear Calc Drug Dose 46.9 ml/min Estimated GFR () 50.5 Estimated GFR (Non- 43.6 BUN/Creatinine Ratio 24.5 Random Glucose 92 mg/dl Calcium Level 8.7 mg/dl Assessment and Plan Recurrent LLE cellulitis Will continue antibiotics Already improving on current abx awaiting ID input vITALS HAVE BEEN STABLE Trop with mild elevation, likely demand ischemia Afib with RVR, likely related to infection and improving with IVF Will give usual home meds but hold on additional meds to avoid hypotension in the setting of infection Recent sepsis related to pacer No plans for reinsertion As stated in HPI and confirmed with patient: Pacer was interrogated at [facility] and found to have no events in the 3-[address] weeks [address] was in place and current thought is pt will be fine without it Family also states it was placed for asx hypoTN in the 30s systolic Adding probiotics, which pt should continue at d/c, discussed with family Continued [facility] stay due to: ambulation difficulties Discharge planning: uncertain
--- NOTE | 2017-04-29 19:58 | Medical Consult ---
Consultation Date of Consultation: Apr 29, 2017. 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 Completed a course of Bactrim with appropriate healing of chest wound site. She was now readmitted with acute onset of fever and shaking chills associated with right lower extremity erythema starting in her ankle and spreading proximally. Patient was started empirically on vancomycin and Zosyn, blood cultures are negative to date. Has been hemodynamically stable overnight. pain now minimal in right leg Past Medical/Surgical History Medical Problems: (1) Cellulitis Status: Acute (2) Cellulitis Status: Acute (3) Cellulitis of right leg Status: Acute (4) Cellulitis of right thigh Status: Acute (5) CHF (congestive heart failure) Status: Acute (6) Sepsis Status: Acute Medical Problems: (1) Atrial Fibrillation (2) Benign Hypertension (3) Carotid Artery Occlusion W O Cerebral Infarction (4) Cellulitis of left leg (5) Elevated troponin (6) Hyperlipidemia Nec/Nos (7) Hypotension (8) Hypothyroidism Nos Family History Cancer Diabetes mellitus Heart disease Hypertension Social History Smoking Status: Never Smoker Smokeless Tobacco Use: No Alcohol Use: none Drug Use: none Marital Status: Housing Status: lives with family Occupation Status: retired Allergies Coded Allergies: Oxytetracycline (Verified Allergy, Intermediate, "felt like a big ball in my stomach", 02/24/17) Polymyxin B (Verified Allergy, Intermediate, "felt like a big ball in my stomach", 02/24/17) Current Inpatient Medications Current Inpatient Medications Medications (Trade) Dose Ordered Sig/Mariaelena Route Start Time Stop Time Status Last Admin Dose Admin Ioversol (Optiray 320) 111 ml UD PRN IV 04/28/17 16:15 05/02/17 16:14 Sodium Chloride 1,000 ml @ 100 mls/hr Q10H IV 04/28/17 18:26 05/28/17 18:25 04/29/17 13:22 100 MLS/HR Acetaminophen (Tylenol Tab) 650 mg Q4H PRN PO 04/28/17 18:30 05/28/17 18:29 Ondansetron HCl (Zofran Inj) 4 mg Q6H PRN IV 04/28/17 18:30 05/28/17 18:29 Polyethylene (Miralax Powder Packet) 17 gm DAILY PRN PO 04/28/17 18:30 05/28/17 18:29 Atorvastatin Calcium (Lipitor Tab) 40 mg DAILY PO 04/29/17 09:00 05/29/17 08:59 04/29/17 07:47 40 MG Cholecalciferol (Vitamin D Tab) 1,000 inter.unit DAILY PO 04/29/17 09:00 05/29/17 08:59 04/29/17 07:47 1,000 INTER.UNIT Digoxin (Lanoxin Tab) 0.25 mg DAILY PO 04/29/17 09:00 05/29/17 08:59 04/29/17 07:47 0.25 MG Escitalopram Oxalate (Lexapro Tab) 20 mg DAILY PO 04/29/17 09:00 05/29/17 08:59 04/29/17 07:46 20 MG Metoprolol Tartrate (Lopressor Tab) 50 mg BID PO 04/28/17 21:00 05/28/17 20:59 Potassium Chloride (Klor-Con M10) 10 meq DAILY PO 04/29/17 09:00 05/29/17 08:59 04/29/17 07:47 10 MEQ Warfarin Sodium (Coumadin Tab) 3 mg DAILY@1600 PO 04/29/17 16:00 05/29/17 15:59 04/29/17 15:12 3 MG Vancomycin HCl 1250 mg/Sodium Chloride 275 ml @ 125 mls/hr Q18H IV 04/29/17 08:00 05/08/17 07:59 04/29/17 07:49 125 MLS/HR Piperacillin Sod/ Tazobactam Sod 4.5 gm/Dextrose 120 ml @ 30 mls/hr Q8H IV 04/28/17 22:00 05/08/17 21:59 04/29/17 13:22 30 MLS/HR Vancomycin HCl (Consult) 1 ea UD PRN N/A 04/28/17 19:45 05/28/17 19:44 Piperacillin Sod/ Tazobactam Sod (Consult) 1 ea UD PRN N/A 04/28/17 19:45 05/28/17 19:44 Saccharomyces Boulardii (Florastor Cap) 250 mg DAILY PO 04/29/17 09:00 05/29/17 08:59 04/29/17 07:46 250 MG Review of Systems All systems were reviewed and are negative except as per HPI Physical Exam Date Time Temp Pulse Resp B/P (MAP) Pulse Ox O2 Delivery O2 Flow Rate FiO2 04/29/17 15:55 Room Air 04/29/17 15:46 36.3 85 18 98/67 (77) 96 Room Air 04/29/17 14:51 92 98 04/29/17 11:35 Room Air 04/29/17 11:06 36.7 85 20 100/64 (76) 96 Room Air 04/29/17 08:00 Room Air 04/29/17 07:49 106/68 (81) 04/29/17 07:47 91 04/29/17 07:02 36.6 79 20 96/62 (73) 98 Room Air 04/29/17 04:00 36.7 72 22 103/51 (68) 96 Room Air 04/29/17 04:00 94 Room Air 04/29/17 00:00 36.6 94 22 90/55 (67) 94 Room Air 04/28/17 23:59 94 Room Air 04/28/17 21:38 81 99/68 (78) 04/28/17 20:42 37.0 102 20 105/64 94 Room Air 04/28/17 20:20 37.1 99 17 75/50 93 04/28/17 20:00 99 17 75/50 93 Room Air General Appearance: WD/WN, no apparent distress Head: normocephalic, atraumatic Eyes: normal inspection, sclerae normal ENT: normal ENT inspection, pharynx normal Neck: supple, no adenopathy, thyroid normal, trachea midline Respiratory/Chest: chest non-tender, lungs clear, normal breath sounds, no respiratory distress Cardiovascular: no gallop, no murmur, + irregularly irregular Abdomen/GI: normal bowel sounds, non tender, soft, no organomegaly Back: normal inspection, no CVA tenderness Extremities/Musculoskelatal: no calf tenderness, + swelling ( right leg) Neurologic/Psych: alert, oriented x 3 Skin: warm/dry, + pertinent finding ( right leg erythema) Lymphatic: no adenopathy Laboratory Results RUN DATE: 04/29/17 [facility] PAGE 1 RUN TIME: 1315 Specimen Inquiry PATIENT: DAISY COLLINS V LOC: Jhon U # : [id number] AGE/SX: 77/F ROOM: E220 REG : 04/28/[address]: Hemalatha Avila DO : 1940 BED: 1 DIS : STATUS: ADM IN TLOC: SPEC #: [id number] SHAILA: 04/28/17-1499 STATUS: RES REQ #: [id number] RECD: 04/28/17-[address]: Josh Wagoner M.D. SOURCE: URINE CATH ENTR: 04/28/17-151 [facility] DR: Jeremie Parmar M.D. SPDESC: ORDERED: CULTURE UR CATH COMMENTS: Has Specimen Been Obtained/Collected? Y Procedure Result Verified Site URINE CULTURE Preliminary 04/29/17-1315 NO GROWTH - LESS THAN 1,000 COLONIES/ML, Final Report to Follow. Last 24 Hours Test 04/28/17 20:49 04/29/17 05:00 04/29/17 06:22 Creatine Kinase MB < 0.5 ng/ml 0.6 ng/ml Creatine Kinase MB Ratio Troponin I 0.210 ng/ml 0.181 ng/ml White Blood Count 12.67 K/uL Red Blood Count 3.15 M/uL Hemoglobin 9.5 g/dL Hematocrit 30.1 % Mean Corpuscular Volume 95.6 fL Mean Corpuscular Hemoglobin 30.2 pg Mean Corpuscular Hemoglobin Concent 31.6 g/dl Platelet Count 202 K/uL Mean Platelet Volume 8.8 fL Neutrophils (%) (Auto) 83.7 % Lymphocytes (%) (Auto) 8.7 % Monocytes (%) (Auto) 5.7 % Eosinophils (%) (Auto) 1.3 % Basophils (%) (Auto) 0.1 % Neutrophils # (Auto) 10.61 K/uL Lymphocytes # (Auto) 1.10 K/uL Monocytes # (Auto) 0.72 K/uL Eosinophils # (Auto) 0.17 K/uL Basophils # (Auto) 0.01 K/uL RDW Standard Deviation 59.6 fL RDW Coefficient of Variation 16.9 % Immature Granulocyte % (Auto) 0.5 % Immature Granulocyte # (Auto) 0.06 K/uL Prothrombin Time 16.5 SECONDS Prothromb Time International Ratio 1.5 Sodium Level 137 mmol/L Potassium Level 4.5 mmol/L Chloride Level 106 mmol/L Carbon Dioxide Level 26 mmol/L Anion Gap 5.0 mmol/L Blood Urea Nitrogen 29 mg/dl Creatinine 1.20 mg/dl Est Creatinine Clear Calc Drug Dose 46.9 ml/min Estimated GFR () 50.5 Estimated GFR (Non- 43.6 BUN/Creatinine Ratio 24.5 Random Glucose 92 mg/dl Calcium Level 8.7 mg/dl Patient Name: DAISY COLLINS V Unit Number: [id number] Dictated: 04/28/171717 Transcribed: 04/28/171717 PBS Printed Date/Time: [~ rep prt dt]/[~ rep prt tm] [~ rep ct labl] - [~ rep ct ivnm] [facility] [place] [address] Dictated: 04/28/171717 Transcribed: 04/28/171717 PBS Printed Date/Time: [~ rep prt dt]/[~ rep prt tm] [~ rep ct labl] - [~ rep ct ivnm] ABD/PELVIS IV CONTRAST ONLY CLINICAL HISTORY: 77 years-old Female presenting with fever, sepsis, hematuria. TECHNIQUE: Multidetector CT of the abdomen and pelvis was performed after the administration of intravenous contrast. IV contrast: 120 mL of Optiray 320. A dose lowering technique was used consistent with the principles of ALARA (as low as reasonably achievable). COMPARISON: 04/13/2014. CT DOSE (mGy.cm): The estimated cumulative dose is 1543.21 inclusive of the CTA chest.. FINDINGS: Staff Nuclear Medicine Technologist topogram: Unremarkable. Lung bases: Mosaic attenuation at the lung bases with scattered groundglass and bandlike opacities. Biatrial enlargement. No pericardial or pleural effusion. Liver: The inferior right hepatic lobe has a somewhat nodular contour. Parenchymal calcification could suggest prior granulomatous infection. No focal liver lesion. Patent hepatic vasculature. Biliary: Mild prominence of intrahepatic bile ducts likely due to a reservoir effect in the post cholecystectomy state. No common duct dilatation. Gallbladder surgically absent. Pancreas: Mild parenchymal atrophy. Spleen: Parenchymal calcification could suggest prior granulomatous infection. Adrenal glands: Normal. Kidneys and ureters: Persistent dilation of the right renal pelvis without ureteral dilatation, likely pelviectasis. This could be due to a congenital or acquired ureteropelvic junction obstruction. No hydronephrosis. Ureters normal. No nephrolithiasis. Bladder: Bladder decompressed with a Almanza catheter. Allowing for underdistention, bladder wall thickening again noted. No perivesicular inflammatory change. Pelvic organs: Uterus surgically absent. Ovaries likely also absent. Bowel: Sigmoid colon and small bowel contained within a large left ventral hernia. No bowel obstruction. Postsurgical changes in the right lower quadrant possibly from prior appendectomy. Peritoneal cavity: No free fluid or intraperitoneal gas. Vasculature: Atherosclerosis of the normal caliber abdominal aorta. IVC patent. Ectasia of the left common iliac artery which measures up to 1.8 cm in maximal transverse dimension. Lymph nodes: No enlarged lymph nodes in the abdomen or pelvis. Abdominal wall: Large ventral hernia that projects to the left of midline containing sigmoid colon and small bowel with the associated mesentery. This has a relatively wide neck. No evidence of obstruction. No associated fluid or fat infiltration. Defect of the cutis and subcutaneous fat in the right lower quadrant with an overlying wound VAC in place. Infiltration extends to the underlying atrophic musculature of the abdominal wall. No extraperitoneal or intraperitoneal extension of inflammatory change. No focal fluid collection. Musculoskeletal: Severe degenerative changes of the right hip joints and advanced degenerative change of the left hip joint. Degenerative changes of the spine. IMPRESSION: 1. No nephrolithiasis. 2. Defect of the anterior abdominal wall in the right lower quadrant with associated subjacent infiltration and a wound VAC in place. No fluid collection or deep extension. 3. Large left ventral hernia containing sigmoid colon and small bowel without evidence of obstruction. 4. Decompressed bladder with persistent wall thickening. This again suggest cystitis, possibly infectious, postinflammatory, or post radiation. Correlate with urinalysis. 5. Severe degenerative changes. 6. Mosaic attenuation at the lung bases suggestive of small airways disease likely with scattered atelectasis. 7. Bilateral enlargement. Electronically signed by: Yves Michaud M.D. 04/28/2017 5:28 PM Dictated Date/Time: 04/28/2017 5:18 PM The status of this report is Signed. Draft = Not yet reviewed or approved by Radiologist. Signed = Reviewed and approved by Radiologist. <AttendingPhy></AttendingPhy> <FamilyPhy>Jeremie Parmar M.D.</FamilyPhy> < PrimaryPhy>Jeremie Parmar M.D.</PrimaryPhy> <UnitNumber>[id number]</UnitNumber> < VisitNumber>[id number]</VisitNumber> <PatientName>DAISY COLLINS V</PatientName> < DateOfBirth>1940</DateOfBirth> <Location>C.EDB</Location> <ServiceDate></ServiceDate> <MNE>ESINDI</MNE> <OrderingPhy>Josh Wagoner M.D.</ OrderingPhy> <OrderingPhyMNE>f rep ord dr mccallum</OrderingPhyMNE> <DictatingPhyMNE> f rep dict dr mccallum</DictatingPhyMNE> <CCListMNE>f rep ct mne</CCListMNE> < AdmittingPhyMNE>f pt admit dr mccallum</AdmittingPhyMNE> <AttendingPhyMNE>f pt attend dr mccallum</AttendingPhyMNE> <ConsultingPhyMNE>f pt consult dr mccallum</ConsultingPhyMNE> <FamilyPhyMNE>f pt fam dr mccallum</FamilyPhyMNE> <OtherPhyMNE>f pt other dr mccallum</OtherPhyMNE> < PrimaryPhyMNE>f pt prim care dr mccallum</PrimaryPhyMNE> <ReferringPhyMNE>f pt referring dr mccallum</ReferringPhyMNE> Assessment & Plan Recurrent RLE cellulitis, will change vancomycin to daptomycin in hopes of reducing potential nephrotoxicity, and will adjust further once final culture results available. Will follow.
[2017-04-30] MEDS: SODIUM CHLORIDE 0.9% 1000ML 1,000 ML IV SCH ×2 (00:15→13:27)
[2017-04-30 04:00] VITALS: BP 108/70; PULSE 70; TEMP 36.6; O2SAT 95; O2SAT 96
[2017-04-30] MEDS: PIPERACILL/TAZOBAC IV 4.5 GM in DEXTROSE 5% 100ML 100 ML IV SCH ×3 (05:46→21:48)
[2017-04-30 06:23] LABS: BASO % 0.3 %; BASO ABS # 0.02 K/uL (0-0.2); COMPLETE YES; EOS % 5.2 %; HEMATOCRIT 29.3 % (37-47); IG% 0.7 %; LYMPH % 14.3 %; LYMPH ABS # 1.02 K/uL (1.2-3.4); MEAN CELL VOLUME 95.1 fL (80-100); MEAN CORPUSCULAR HEMOGLOBIN 30.5 pg (25-34); MEAN CORPUSCULAR HGB CONC 32.1 g/dl (32-36); MEAN PLATELET VOLUME 8.7 fL (7.4-10.4); MONO % 7.7 %; NEUT % 71.8 %; PLATELET COUNT 189 K/uL (130-400); RED BLOOD COUNT 3.08 M/uL (4.2-5.4); WHITE BLOOD COUNT 7.11 K/uL (4.8-10.8)
[2017-04-30 06:37] LABS: INR 1.5 (0.9-1.1); PROTHROMBIN TIME (PATIENT) 16.1 SECONDS (9.0-12.0)
[2017-04-30 06:55] LABS: BUN/CREATININE RATIO 19.8 (10-20); CALCIUM 8.7 mg/dl (8.5-10.1); CREATININE 0.95 mg/dl (0.60-1.20); POTASSIUM 4.2 mmol/L (3.5-5.1)
[2017-04-30 08:02] VITALS: BP 139/78; PULSE 114; TEMP 36.6; O2SAT 95
[2017-04-30] MEDS: ATORVASTATIN 40 MG TAB PO SCH (08:03)
[2017-04-30] MEDS: SACCHAROMYCES BOUL (FLORASTOR) 250 MG CAP PO SCH (08:03)
[2017-04-30] MEDS: DIGOXIN 0.25 MG TAB PO SCH (08:03)
[2017-04-30] MEDS: CHOLECALCIFEROL 1000 INTER.UNIT TAB PO SCH (08:03)
[2017-04-30] MEDS: POTASSIUM CHLORIDE 10 MEQ TABCR PO SCH (08:03)
[2017-04-30] MEDS: ESCITALOPRAM OXALATE 20 MG TAB PO SCH (08:03)
[2017-04-30] MEDS: DAPTOmycin IV 450 MG in SODIUM CHLORIDE 0.9% 50ML 50 ML IV SCH (08:06)
[2017-04-30] MEDS: METOPROLOL TARTRATE 50 MG TAB PO SCH (08:30)
[2017-04-30 09:36] VITALS: BP 135/95
[2017-04-30 12:25] VITALS: BP 119/72; PULSE 84; TEMP 36.3; O2SAT 97
[2017-04-30 15:20] VITALS: BP 125/82; PULSE 73; TEMP 36.4; O2SAT 99
[2017-04-30] MEDS: WARFARIN SOD 3 MG TAB PO SCH (15:28)
[2017-04-30] MEDS ORDERED: NURSING VERBAL MED ORDER ONE (18:30)
[2017-04-30 19:07] VITALS: BP 131/82; PULSE 83; TEMP 36.4; O2SAT 95
--- NOTE | 2017-04-30 21:35 | Progress Note ---
Subjective Date of Service: Apr 30, 2017. Subjective Patient reports feeling better today as compared to yesterday. She states that her erythema has improved. Patient denies fever, chills, nausea, vomiting. Problem List Medical Problems: (1) Cellulitis Status: Acute (2) Cellulitis Status: Acute (3) Cellulitis of right leg Status: Acute (4) Cellulitis of right thigh Status: Acute (5) CHF (congestive heart failure) Status: Acute (6) Sepsis Status: Acute Review of Systems Constitutional: No see HPI, No fever, No chills, No sweats, No weight loss, No weakness, No fatigue, No problem reported ENT: No see HPI, No hearing loss, No unusual epistaxis, No nasal symptoms, No sore throat, No tinnitus, No dental problems, No trouble swallowing, No problem reported Respiratory: No see HPI, No cough, No sputum, No wheezing, No shortness of breath, No dyspnea on exertion, No dyspnea at rest, No hemoptysis, No problem reported Cardiac: No see HPI, No chest pain, No orthopnea, No PND, No edema, No claudication, No palpitations, No problem reported Abdomen: No see HPI, No pain, No nausea, No vomiting, No diarrhea, No constipation, No GI bleeding, No problem reported Neurologic: No see HPI, No memory loss, No paralysis, No weakness, No numbness/ tingling, No vertigo, No balance problems, No problem reported Psychiatric: No see HPI, No depression symptoms, No anhedonism, No anxiety, No insomnia, No substance abuse, No problem reported Endo: No see HPI, No fatigue, No excessive thirst, No excessive urination, No problem reported Skin: + rash, + color change All Other Systems: Reviewed and Negative Objective Vital Signs Date Time Temp Pulse Resp B/P (MAP) Pulse Ox O2 Delivery O2 Flow Rate FiO2 04/30/17 15:55 Room Air 04/30/17 15:20 36.4 73 20 125/82 (96) 99 Room Air 04/30/17 12:25 36.3 84 16 119/72 (88) 97 Room Air 04/30/17 12:00 Room Air 04/30/17 09:36 135/95 (108) 04/30/17 08:03 114 04/30/17 08:02 36.6 114 18 139/78 (98) 95 Room Air 04/30/17 08:00 Room Air 04/30/17 04:00 36.6 70 16 108/70 (83) 95 Room Air 04/30/17 04:00 96 Room Air 04/29/17 23:59 96 Room Air 04/29/17 23:34 36.9 75 18 93/51 (65) 96 Room Air 04/29/17 20:00 99 Room Air 04/29/17 19:58 36.5 76 18 98/68 (78) 99 Room Air Physical Exam General Appearance: WD/WN, no apparent distress Neck: supple, no adenopathy, thyroid normal Respiratory/Chest: chest non-tender, lungs clear, normal breath sounds Cardiovascular: no edema, no murmur, + irregularly irregular Abdomen: normal bowel sounds, soft Skin: + pertinent finding (left lower leg: erythema only noted on posterior calf.no warmth to touch nor tenderness to touch. right thigh: no erythema) Laboratory Results Last 24 Hours Test 04/30/17 06:06 White Blood Count 7.11 K/uL Red Blood Count 3.08 M/uL Hemoglobin 9.4 g/dL Hematocrit 29.3 % Mean Corpuscular Volume 95.1 fL Mean Corpuscular Hemoglobin 30.5 pg Mean Corpuscular Hemoglobin Concent 32.1 g/dl Platelet Count 189 K/uL Mean Platelet Volume 8.7 fL Neutrophils (%) (Auto) 71.8 % Lymphocytes (%) (Auto) 14.3 % Monocytes (%) (Auto) 7.7 % Eosinophils (%) (Auto) 5.2 % Basophils (%) (Auto) 0.3 % Neutrophils # (Auto) 5.10 K/uL Lymphocytes # (Auto) 1.02 K/uL Monocytes # (Auto) 0.55 K/uL Eosinophils # (Auto) 0.37 K/uL Basophils # (Auto) 0.02 K/uL RDW Standard Deviation 59.1 fL RDW Coefficient of Variation 16.8 % Immature Granulocyte % (Auto) 0.7 % Immature Granulocyte # (Auto) 0.05 K/uL Prothrombin Time 16.1 SECONDS Prothromb Time International Ratio 1.5 Sodium Level 140 mmol/L Potassium Level 4.2 mmol/L Chloride Level 112 mmol/L Carbon Dioxide Level 23 mmol/L Anion Gap 5.0 mmol/L Blood Urea Nitrogen 19 mg/dl Creatinine 0.95 mg/dl Est Creatinine Clear Calc Drug Dose 59.0 ml/min Estimated GFR () 67.0 Estimated GFR (Non- 57.8 BUN/Creatinine Ratio 19.8 Random Glucose 82 mg/dl Calcium Level 8.7 mg/dl Total Creatine Kinase 31 U/L Assessment and Plan Recurrent LLE cellulitis Will continue antibiotics Already improving on current abx ID placed on Daptomycin VITALS HAVE BEEN STABLE Trop with mild elevation, likely demand ischemia Afib with RVR, likely related to infection and improving with IVF Will give usual home meds but hold on additional meds to avoid hypotension in the setting of infection Recent sepsis related to pacer No plans for reinsertion As stated in HPI and confirmed with patient: Pacer was interrogated at [facility] and found to have no events in the 3-4 weeks [address] was in place and current thought is pt will be fine without it Family also states it was placed for asx hypotension in the 30s systolic Adding probiotics, which pt should continue at d/c, discussed with family Also patient has wound pump on abdomen. wound care consult in place. will see patient on monday Continued [facility] stay due to: ambulation difficulties Discharge planning: uncertain
[2017-05-01] VITALS: BP 117/74; PULSE 86; TEMP 36.6; O2SAT 97
[2017-05-01 03:37] VITALS: BP 112/66; PULSE 84; TEMP 36.5; O2SAT 96
[2017-05-01] MEDS: PIPERACILL/TAZOBAC IV 4.5 GM in DEXTROSE 5% 100ML 100 ML IV SCH ×3 (06:08→22:15)
[2017-05-01 07:00] LABS: BASO % 0.3 %; BASO ABS # 0.02 K/uL (0-0.2); COMPLETE YES; EOS % 4.3 %; IG% 0.6 %; LYMPH % 16.4 %; LYMPH ABS # 1.07 K/uL (1.2-3.4); MEAN CELL VOLUME 95.8 fL (80-100); MEAN CORPUSCULAR HEMOGLOBIN 29.7 pg (25-34); MEAN PLATELET VOLUME 8.9 fL (7.4-10.4); MONO % 6.8 %; NEUT % 71.6 %; PLATELET COUNT 219 K/uL (130-400); RED BLOOD COUNT 3.13 M/uL (4.2-5.4); WHITE BLOOD COUNT 6.51 K/uL (4.8-10.8)
[2017-05-01 07:05] LABS: INR 1.5 (0.9-1.1); PROTHROMBIN TIME (PATIENT) 16.2 SECONDS (9.0-12.0)
[2017-05-01 07:46] VITALS: BP 122/76; PULSE 85; TEMP 36.3; O2SAT 96
[2017-05-01] MEDS: SACCHAROMYCES BOUL (FLORASTOR) 250 MG CAP PO SCH (08:32)
[2017-05-01] MEDS: POTASSIUM CHLORIDE 10 MEQ TABCR PO SCH (08:32)
[2017-05-01] MEDS: DIGOXIN 0.25 MG TAB PO SCH (08:35)
[2017-05-01] MEDS: CHOLECALCIFEROL 1000 INTER.UNIT TAB PO SCH (08:36)
[2017-05-01] MEDS: ESCITALOPRAM OXALATE 20 MG TAB PO SCH (08:36)
[2017-05-01] MEDS: ATORVASTATIN 40 MG TAB PO SCH (08:36)
[2017-05-01 10:38] VITALS: BP 122/76; PULSE 90; O2SAT 96
[2017-05-01] MEDS: DAPTOmycin IV 450 MG in SODIUM CHLORIDE 0.9% 50ML 50 ML IV SCH (10:56)
[2017-05-01 11:04] VITALS: BP 126/85; PULSE 90; TEMP 36.4; O2SAT 96
--- NOTE | 2017-05-01 11:05 | Clinical Documentation Query ---
HARMAN Arguelles : CLINICAL DOCUMENTATION QUERY Patient is a 77 year old female with recent history of MRSA and Pseudomonas sepsis. ED and H&P documentation included sepsis in the setting of left lower extremity cellulitis. This was stated to be likely a MRSA infection. This documentation has not continued. Pancultured. Patient has been treated with Daptomycin, Zosyn, and Vancomycin. Consider documentation alternatives suggested below. Thank you. In your clinical opinion is this patient being managed for: ( x ) (Likely/suspected) (MRSA)Sepsis, POA, resolved ( ) Sepsis ruled out ( ) Not Agree ( ) Other explanation of clinical findings (Please Explain) ( ) Unable to determine (Please Define) ( ) Need to Discuss The medical record reflects the following clinical findings, treatment, and risk factors. Clinical Indicators: As above, leukocytosis, fever, tachycardia, suspected infection Treatment: Abx, ID consultation, cultures Risk Factors: Age, recent antibiotics, recent sepsis, multiple hospitalizations. Please clarify and document your clinical opinion in the progress notes and discharge summary. Terms such as "probable", "suspected", "likely", "questionable", "possible", or "still to be ruled out" are acceptable. IF IN AGREEMENT, YOU MUST DOCUMENT ABOVE DIAGNOSTIC STATEMENT IN DAILY PROGRESS NOTES AND DISCHARGE SUMMARY. This document is not part of the patient's record. Thank You, Balwinder Starr RN [phone]
[2017-05-01] MEDS ORDERED: VANCOMYCIN TROUGH SCH (13:30)
--- NOTE | 2017-05-01 13:39 | Progress Note ---
Subjective Date of Service: May 01, 2017. Subjective Pt evaluation today including: conversation w/ patient, physical exam, lab review, review of inpatient medication list Pain: no pain PO Intake: adequate Voiding: no voiding problems no leg pain today, less redness, no warmth eating well labs reviewed, vitals reviewed OT - should be able to return home with aides, home OT PT - recommend rehab Problem List Medical Problems: (1) Cellulitis Status: Acute (2) Cellulitis Status: Acute (3) Cellulitis of right leg Status: Acute (4) Cellulitis of right thigh Status: Acute (5) CHF (congestive heart failure) Status: Acute (6) Sepsis Status: Acute Review of Systems Constitutional: + weakness, + fatigue Skin: + rash All Other Systems: Reviewed and Negative Medications Current Inpatient Medications Medications (Trade) Dose Ordered Sig/Mariaelena Route Start Time Stop Time Status Last Admin Dose Admin Ioversol (Optiray 320) 111 ml UD PRN IV 04/28/17 16:15 05/02/17 16:14 Acetaminophen (Tylenol Tab) 650 mg Q4H PRN PO 04/28/17 18:30 05/28/17 18:29 Ondansetron HCl (Zofran Inj) 4 mg Q6H PRN IV 04/28/17 18:30 05/28/17 18:29 Polyethylene (Miralax Powder Packet) 17 gm DAILY PRN PO 04/28/17 18:30 05/28/17 18:29 Atorvastatin Calcium (Lipitor Tab) 40 mg DAILY PO 04/29/17 09:00 05/29/17 08:59 05/01/17 08:36 40 MG Cholecalciferol (Vitamin D Tab) 1,000 inter.unit DAILY PO 04/29/17 09:00 05/29/17 08:59 05/01/17 08:36 1,000 INTER.UNIT Digoxin (Lanoxin Tab) 0.25 mg DAILY PO 04/29/17 09:00 05/29/17 08:59 05/01/17 08:35 0.25 MG Escitalopram Oxalate (Lexapro Tab) 20 mg DAILY PO 04/29/17 09:00 05/29/17 08:59 05/01/17 08:36 20 MG Potassium Chloride (Klor-Con M10) 10 meq DAILY PO 04/29/17 09:00 05/29/17 08:59 05/01/17 08:32 10 MEQ Warfarin Sodium (Coumadin Tab) 3 mg DAILY@1600 PO 04/29/17 16:00 05/29/17 15:59 04/30/17 15:28 3 MG Piperacillin Sod/ Tazobactam Sod 4.5 gm/Dextrose 120 ml @ 30 mls/hr Q8H IV 04/28/17 22:00 05/08/17 21:59 05/01/17 06:08 30 MLS/HR Piperacillin Sod/ Tazobactam Sod (Consult) 1 ea UD PRN N/A 04/28/17 19:45 05/28/17 19:44 Saccharomyces Boulardii (Florastor Cap) 250 mg DAILY PO 04/29/17 09:00 05/29/17 08:59 05/01/17 08:32 250 MG Daptomycin 450 mg/ Sodium Chloride 59 ml @ 100 mls/hr DAILY IV 04/30/17 09:00 05/10/17 08:59 05/01/17 10:56 100 MLS/HR Objective Vital Signs Date Time Temp Pulse Resp B/P (MAP) Pulse Ox O2 Delivery O2 Flow Rate FiO2 05/01/17 13:16 36.4 90 18 96 05/01/17 12:00 Room Air 05/01/17 11:04 36.4 90 18 126/85 (99) 96 Room Air 05/01/17 10:38 90 96 05/01/17 08:35 90 05/01/17 08:00 Room Air 05/01/17 07:46 36.3 85 20 122/76 (91) 96 Room Air 05/01/17 04:00 Room Air 05/01/17 03:37 36.5 84 18 112/66 (81) 96 Room Air 05/01/17 00:01 Room Air 05/01/17 00:00 36.6 86 20 117/74 (88) 97 Room Air 04/30/17 20:00 Room Air 04/30/17 19:07 36.4 83 18 131/82 (98) 95 Room Air 04/30/17 15:55 Room Air 04/30/17 15:20 36.4 73 20 125/82 (96) 99 Room Air Physical Exam General Appearance: WD/WN, no apparent distress Eyes: normal inspection, EOMI, sclerae normal ENT: normal ENT inspection, hearing grossly normal, pharynx normal Neck: supple, no adenopathy, no JVD, trachea midline Respiratory/Chest: chest non-tender, lungs clear, normal breath sounds, no respiratory distress, no accessory muscle use Cardiovascular: regular rate, rhythm, no edema, no gallop, no JVD, no murmur Abdomen: normal bowel sounds, non tender, soft, no organomegaly Extremities: normal range of motion, non-tender, normal inspection, no pedal edema, no calf tenderness, pelvis stable Neurologic/Psychiatric: fundraising manager II-XII nml as tested, no motor/sensory deficits, alert, normal mood/affect, oriented x 3 Skin: + rash (left lower leg erythema, significantly reduced since admission, no tenderness, no warmth) Laboratory Results Last 24 Hours Test 05/01/17 06:36 White Blood Count 6.51 K/uL Red Blood Count 3.13 M/uL Hemoglobin 9.3 g/dL Hematocrit 30.0 % Mean Corpuscular Volume 95.8 fL Mean Corpuscular Hemoglobin 29.7 pg Mean Corpuscular Hemoglobin Concent 31.0 g/dl Platelet Count 219 K/uL Mean Platelet Volume 8.9 fL Neutrophils (%) (Auto) 71.6 % Lymphocytes (%) (Auto) 16.4 % Monocytes (%) (Auto) 6.8 % Eosinophils (%) (Auto) 4.3 % Basophils (%) (Auto) 0.3 % Neutrophils # (Auto) 4.66 K/uL Lymphocytes # (Auto) 1.07 K/uL Monocytes # (Auto) 0.44 K/uL Eosinophils # (Auto) 0.28 K/uL Basophils # (Auto) 0.02 K/uL RDW Standard Deviation 58.3 fL RDW Coefficient of Variation 16.6 % Immature Granulocyte % (Auto) 0.6 % Immature Granulocyte # (Auto) 0.04 K/uL Prothrombin Time 16.2 SECONDS Prothromb Time International Ratio 1.5 Creatinine 1.00 mg/dl Est Creatinine Clear Calc Drug Dose 56.0 ml/min Estimated GFR () 62.9 Estimated GFR (Non- 54.3 Assessment and Plan 77 yo female who presented with LLE cellulitis - LLE cellulitis with sepsis, POA, now sepsis resolved afebrile, WBC normal, vitals stable erythema markedly improved, no tenderness or warmth on palpation continue Daptomycin and Zosyn for now, await final recommendations from ID - Mild elevated troponin, demand ischemia: no chest pain, no EKG changes - Chronic Afib with episodes of RVR: rates now controlled with Digoxin continue Coumadin, INR 1.5 - s/p removal of pacemaker due to cellulitis: no plans currently for another pacemaker was interrogated prior to removal, no events in 3-4 week time period transfer to medical floor, will eventually transition to PO antibiotics per therapy, recommending rehab, will ask CM to discuss options Continued [facility] stay due to: ambulation difficulties Discharge planning: uncertain
[2017-05-01 13:45] VITALS: BP 145/86; PULSE 80; TEMP 36.7; O2SAT 99
[2017-05-01] MEDS: WARFARIN SOD 3 MG TAB PO SCH (16:34)
--- NOTE | 2017-05-01 20:49 | Infectious Disease Progress Nt ---
Progress Note Date of Service May 01, 2017. Subjective Pt evaluation today including: conversation w/ patient, physical exam, chart review, lab review, review of studies, conversation w/ multi site leasing consultant, review of inpatient medication list Lower extremity pain much improved. Patient remains afebrile. Tolerating antibiotics without apparent difficulty. Erythema decreasing. Blood cultures remain no growth. All Other Systems: Reviewed and Negative Medications Current Inpatient Medications Medications (Trade) Dose Ordered Sig/Mariaelena Route Start Time Stop Time Status Last Admin Dose Admin Ioversol (Optiray 320) 111 ml UD PRN IV 04/28/17 16:15 05/02/17 16:14 Acetaminophen (Tylenol Tab) 650 mg Q4H PRN PO 04/28/17 18:30 05/28/17 18:29 Ondansetron HCl (Zofran Inj) 4 mg Q6H PRN IV 04/28/17 18:30 05/28/17 18:29 Polyethylene (Miralax Powder Packet) 17 gm DAILY PRN PO 04/28/17 18:30 05/28/17 18:29 Atorvastatin Calcium (Lipitor Tab) 40 mg DAILY PO 04/29/17 09:00 05/29/17 08:59 05/01/17 08:36 40 MG Cholecalciferol (Vitamin D Tab) 1,000 inter.unit DAILY PO 04/29/17 09:00 05/29/17 08:59 05/01/17 08:36 1,000 INTER.UNIT Digoxin (Lanoxin Tab) 0.25 mg DAILY PO 04/29/17 09:00 05/29/17 08:59 05/01/17 08:35 0.25 MG Escitalopram Oxalate (Lexapro Tab) 20 mg DAILY PO 04/29/17 09:00 05/29/17 08:59 05/01/17 08:36 20 MG Potassium Chloride (Klor-Con M10) 10 meq DAILY PO 04/29/17 09:00 05/29/17 08:59 05/01/17 08:32 10 MEQ Warfarin Sodium (Coumadin Tab) 3 mg DAILY@1600 PO 04/29/17 16:00 05/29/17 15:59 05/01/17 16:34 3 MG Piperacillin Sod/ Tazobactam Sod 4.5 gm/Dextrose 120 ml @ 30 mls/hr Q8H IV 04/28/17 22:00 05/08/17 21:59 05/01/17 14:18 30 MLS/HR Piperacillin Sod/ Tazobactam Sod (Consult) 1 ea UD PRN N/A 04/28/17 19:45 05/28/17 19:44 Saccharomyces Boulardii (Florastor Cap) 250 mg DAILY PO 04/29/17 09:00 05/29/17 08:59 05/01/17 08:32 250 MG Daptomycin 450 mg/ Sodium Chloride 59 ml @ 100 mls/hr DAILY IV 04/30/17 09:00 05/10/17 08:59 05/01/17 10:56 100 MLS/HR Objective Vital Signs Date Time Temp Pulse Resp B/P (MAP) Pulse Ox O2 Delivery O2 Flow Rate FiO2 05/01/17 16:00 Room Air 05/01/17 13:45 36.7 80 20 145/86 (105) 99 Room Air 05/01/17 13:16 36.4 90 18 96 05/01/17 12:00 Room Air 05/01/17 11:04 36.4 90 18 126/85 (99) 96 Room Air 05/01/17 10:38 90 96 05/01/17 08:35 90 05/01/17 08:00 Room Air 05/01/17 07:46 36.3 85 20 122/76 (91) 96 Room Air 05/01/17 04:00 Room Air 05/01/17 03:37 36.5 84 18 112/66 (81) 96 Room Air 05/01/17 00:01 Room Air 05/01/17 00:00 36.6 86 20 117/74 (88) 97 Room Air Physical Exam General Appearance: WD/WN, no apparent distress Eyes: normal inspection, EOMI, sclerae normal ENT: normal ENT inspection, pharynx normal Neck: supple, no adenopathy, trachea midline Respiratory/Chest: chest non-tender, lungs clear, normal breath sounds, no respiratory distress Cardiovascular: regular rate, rhythm, no gallop, no murmur Abdomen: normal bowel sounds, non tender, soft, no organomegaly Extremities: non-tender, no calf tenderness Neurologic/Psychiatric: alert, oriented x 3 Skin: normal color, no rash, + pertinent finding ( Improving lower extremity cellulitis) Lymphatic: no adenopathy Laboratory Results Last 24 Hours Test 05/01/17 06:36 05/01/17 14:13 White Blood Count 6.51 K/uL Red Blood Count 3.13 M/uL Hemoglobin 9.3 g/dL Hematocrit 30.0 % Mean Corpuscular Volume 95.8 fL Mean Corpuscular Hemoglobin 29.7 pg Mean Corpuscular Hemoglobin Concent 31.0 g/dl Platelet Count 219 K/uL Mean Platelet Volume 8.9 fL Neutrophils (%) (Auto) 71.6 % Lymphocytes (%) (Auto) 16.4 % Monocytes (%) (Auto) 6.8 % Eosinophils (%) (Auto) 4.3 % Basophils (%) (Auto) 0.3 % Neutrophils # (Auto) 4.66 K/uL Lymphocytes # (Auto) 1.07 K/uL Monocytes # (Auto) 0.44 K/uL Eosinophils # (Auto) 0.28 K/uL Basophils # (Auto) 0.02 K/uL RDW Standard Deviation 58.3 fL RDW Coefficient of Variation 16.6 % Immature Granulocyte % (Auto) 0.6 % Immature Granulocyte # (Auto) 0.04 K/uL Prothrombin Time 16.2 SECONDS Prothromb Time International Ratio 1.5 Creatinine 1.00 mg/dl Est Creatinine Clear Calc Drug Dose 56.0 ml/min Estimated GFR () 62.9 Estimated GFR (Non- 54.3 Vancomycin Level Trough 7.8 mcg/ml Assessment and Plan Recurrent RLE cellulitis, improved on IV antibiotics. Hopefully can transition to oral therapy tomorrow, and would recommend combination of Augmentin and Bactrim. will follow.
[2017-05-02 00:36] VITALS: BP 135/73; PULSE 81; TEMP 36.7; O2SAT 98
[2017-05-02] MEDS: PIPERACILL/TAZOBAC IV 4.5 GM in DEXTROSE 5% 100ML 100 ML IV SCH (05:51)
[2017-05-02 07:35] VITALS: BP 177/98; PULSE 85; TEMP 36.6; O2SAT 97
[2017-05-02] MEDS: DIGOXIN 0.25 MG TAB PO SCH (08:26)
[2017-05-02] MEDS: POTASSIUM CHLORIDE 10 MEQ TABCR PO SCH (08:26)
[2017-05-02] MEDS: SACCHAROMYCES BOUL (FLORASTOR) 250 MG CAP PO SCH (08:26)
[2017-05-02] MEDS: CHOLECALCIFEROL 1000 INTER.UNIT TAB PO SCH (08:26)
[2017-05-02] MEDS: ESCITALOPRAM OXALATE 20 MG TAB PO SCH (08:26)
[2017-05-02] MEDS: ATORVASTATIN 40 MG TAB PO SCH (08:26)
[2017-05-02] MEDS ORDERED: ASPI-589 PO (08:30)
[2017-05-02] MEDS ORDERED: AMOX875T PO (10:36)
[2017-05-02] MEDS ORDERED: SACC250C3 PO (10:36)
[2017-05-02] MEDS ORDERED: SULF800T23 PO (10:36)
--- NOTE | 2017-05-02 10:55 | Discharge Instructions ---
Discharge Instructions Date of Service May 02, 2017. Admission Reason for Admission: Cellulitis Of Left Leg Discharge Discharge Diagnosis / Problem: Cellulitis left leg Discharge Goals Goal(s): Improve function, Improve disease control Activity Recommendations Activity Limitations: resume your previous activity Lifting Limitations: none Exercise/Sports Limitations: as tolerated Shower/Bathe: keep incision dry (no bathing or soaking in tub, keep wound dry) . Instructions / Follow-Up Instructions / Follow-Up Medications: - AUGMENTIN: take twice a day for 10 more days - BACTRIM: take twice a day for 10 more days Cellulitis: resolving quickly, please take 10 more days of antibiotics to completely treat Wound: follow up with home nursing and wound care FOLLOW UP - Dr. Parmar in 7-10 days, please call to schedule appointment Current Hospital Diet Patient's current hospital diet: AHA Diet (Heart Healthy) Discharge Diet Recommended Diet: AHA Diet (Heart Healthy) Pending Studies Studies pending at discharge: no Laboratory Results Hemoglobin A1c Test 03/31/17 03:59 Range/Units Estimated Average Glucose 111 mg/dl Hemoglobin A1c 5.5 4.5-5.6 % Lipid Panel Test 03/31/17 03:56 Range/Units Triglycerides Level 94 0-150 mg/dl Cholesterol Level 87 0-200 mg/dl HDL Cholesterol 30 mg/dl Cholesterol/HDL Ratio 2.9 LDL Cholesterol, Calculated 38 mg/dl Medical Emergencies . Who to Call and When: Medical Emergencies: If at any time you feel your situation is an emergency, please call 911 immediately. . Non-Emergent Contact Non-Emergency issues call your: Primary Care Provider Call Non-Emergent contact if: you have a fever, wound has increased drainage, wound has increased redness, wound has increased pain, you have any medication questions . . "Provider Documentation" section prepared by Henrry Kunz. . VTE Core Measure Inpt VTE Proph given/why not?: Warfarin (Coumadin), Azul Welch, SCD's [place] Drug Monitoring Program Search Results: no issues identified
[2017-05-02] MEDS: DAPTOmycin IV 450 MG in SODIUM CHLORIDE 0.9% 50ML 50 ML IV SCH (11:11)
[2017-05-02 11:38] VITALS: PULSE 82; TEMP 36.6; O2SAT 97
[2017-05-02 12:37] VITALS: BP 143/82
--- NOTE | 2017-05-02 20:56 | Discharge Summary ---
Discharge Summary Date of Service May 02, 2017. Discharge Summary Admission Date: Apr 28, 2017 at 18:35 Discharge Date: May 02, 2017 Discharge Disposition: Home with services Principal Diagnosis: Left leg cellulitis Problems/Secondary Diagnoses: Chest wall cellulitis chronic afib s/p pacemaker removal Procedures: none Consultations: Infectious disease Medication Reconciliation New Medications: Amoxicillin & Pot Clavulanate (Augmentin 875-125 mg) 1 Tab Tab 1 TAB PO BID for 10 Days, #20 TAB Sulfa/Trimethoprim (Bactrim Ds 800MG/160MG) Tab 1 TAB PO BID for 10 Days, #20 TAB Saccharomyces Boulardii (Florastor) 250 Mg Cap 250 MG PO DAILY, #14 CAP 0 Refills Continued Medications: Aspirin (Aspirin Adult Low Dose) 81 Mg Tab 81 MG PO DAILY Atorvastatin (Lipitor) 40 Mg Tab 40 MG PO DAILY, TAB Cholecalciferol (Vitamin D 1000 Unit) 1,000 Unit Cap 1000 INTER.UNIT PO DAILY, CAP Digoxin (Digoxin) 0.25 Mg Tab 0.25 MG PO DAILY Escitalopram Oxalate (Escitalopram Oxalate) 20 Mg Tab 20 MG PO DAILY, #90 Metoprolol Tartrate (Lopressor) 50 Mg Tab 50 MG PO BID, TAB Potassium Ext Rel (Klor-Con) 20 Meq Tabcr 10 MEQ PO DAILY, TAB Warfarin Sodium (Warfarin Sodium) 3 Mg Tab 3 MG PO DIRECTED Discharge Exam Patient feeling well, ready for discharge. No fever, vitals stable. Normal lab work. Detailed instructions given for medications and follow up. Review of Systems: Constitutional: + weakness, No fever, No chills, No sweats, No weight loss, No fatigue, No problem reported Eyes: No worsening of vision, No eye pain, No redness, No discharge, No diplopia, No problem reported ENT: No hearing loss, No unusual epistaxis, No nasal symptoms, No sore throat, No tinnitus, No dental problems, No trouble swallowing, No problem reported Respiratory: No cough, No sputum, No wheezing, No shortness of breath, No dyspnea on exertion, No dyspnea at rest, No hemoptysis, No problem reported Cardiovascular: No chest pain, No orthopnea, No PND, No edema, No claudication, No palpitations, No problem reported Abdomen: No pain, No nausea, No vomiting, No diarrhea, No constipation, No GI bleeding, No problem reported Musculoskeletal: No joint pain, No muscle pain, No swelling, No calf pain, No problem reported Genitourinary - Female: No dysuria, No urinary frequency, No urinary urgency , No urinary incontinence Neurologic: No memory loss, No paralysis, No weakness, No numbness/tingling , No vertigo, No balance problems, No problem reported Psychiatric: No depression symptoms, No anhedonism, No anxiety, No insomnia , No substance abuse, No problem reported Endocrine: No fatigue, No excessive thirst, No excessive urination, No problem reported Hematologic / Lymphatic: No abnormal bleeding/bruising, No clotting problems , No swollen lymph nodes, No night sweats, No problem reported Integumentary: No rash, No itch, No new/changing skin lesions, No color change, No bleeding, No problem reported Physical Exam: General Appearance: WD/WN, no apparent distress Eyes: normal inspection, EOMI, sclerae normal ENT: normal ENT inspection, hearing grossly normal, pharynx normal Neck: supple, no adenopathy, no JVD, trachea midline Respiratory/Chest: chest non-tender, lungs clear, normal breath sounds, no respiratory distress, no accessory muscle use Cardiovascular: regular rate, rhythm, no edema, no gallop, no JVD, no murmur , normal peripheral pulses Abdomen / GI: normal bowel sounds, non tender, soft, no organomegaly, no pulsatile mass Extremities: normal inspection, no calf tenderness, normal capillary refill , no pedal edema, normal range of motion, pelvis stable Neurologic/Psychiatric: buckram sewer II-XII nml as tested, alert, normal mood/affect , normal reflexes, oriented x 3, + motor weakness (generalized) Skin: + rash (left leg cellulitis, erythema confined to posterior left lower leg, non tender, not warm) Lymphatic: no adenopathy Hospital Course 77 yo female who presented with LLE cellulitis - LLE cellulitis with sepsis, POA, now sepsis resolved afebrile, WBC normal, vitals stable for several days erythema markedly improved, no tenderness or warmth on palpation treated with Daptomycin and Zosyn while inpatient will d/c on 10 more days of Bactrim and Augmentin for 14 day total course of antibiotics Florastor while on antibiotics to help prevent C diff - Mild elevated troponin, demand ischemia: no chest pain, no EKG changes - Chronic Afib with episodes of RVR: rates now controlled with Digoxin continue Coumadin, INR 1.5 - s/p removal of pacemaker due to cellulitis: no plans currently for another pacemaker was interrogated prior to removal, no events in 3-4 week time period d/c home on PO antibiotics, already with home health arranged for wound care and nursing checks Total Time Spent: Greater than 30 minutes This includes examination of the patient, discharge planning, medication reconciliation, and communication with other providers. Discharge Instructions Please refer to the electronic Patient Visit Report (Discharge Instructions) for additional information. Follow-Up Dr. Parmar in one week Additional Copies To Rigoberto Baker MD; Jeremie Parmar M.D.
[2017-05-12] MEDS ORDERED: PROB1CAP6 (10:45)
== END 2017-05-02 14:51 | disposition home health service (06) | DRG 872 ==
LOC: EDBD 14:35 → C.EDB 14:36 → C.2T 18:35 → EDBEDREQ 19:02 → ENRESERV 19:12 → C.4E 05-01 13:44
PROVIDERS: ADMIT Family Medicine; ATTEND Internal Medicine
DX: A41.9 Sepsis, unspecified organism (principal); L03.116 Cellulitis of left lower limb; L03.313 Cellulitis of chest wall; I24.8 Other forms of acute ischemic heart disease; T82.897D Other specified complication of cardiac prosthetic devices, implants and grafts, subsequent encounter; I48.2 Chronic atrial fibrillation; R79.89 Other specified abnormal findings of blood chemistry; Y95 Nosocomial condition; N18.3 Chronic kidney disease, stage 3 (moderate); S82.832D Other fracture of upper and lower end of left fibula, subsequent encounter for closed fracture with routine healing; W19.XXXD Unspecified fall, subsequent encounter; I73.9 Peripheral vascular disease, unspecified; I65.29 Occlusion and stenosis of unspecified carotid artery; Z86.718 Personal history of other venous thrombosis and embolism; Z86.14 Personal history of Methicillin resistant Staphylococcus aureus infection; Z79.899 Other long term (current) drug therapy; Z79.01 Long term (current) use of anticoagulants; Z85.850 Personal history of malignant neoplasm of thyroid

== ENCOUNTER → 2017-05-08 | Outpatient (CLI) | payer OTHER ==
[~2017-05-08] MED LIST changes: +AMOX875T PO; -ASPEC81 PO; +ASPI-589 PO; +ATOR-24 PO; -CITA40TA4 PO; -LEVO88TA3 PO; -LORA-741 PO; -LPT40 PO; -LSN20 PO; +LXP/20 PO; -POTA20TA13 PO; +POTA20TA16 PO; +PROB1CAP6; +SACC250C3 PO; +SULF800T23 PO; -WARF4TAB8 PO
[2017-05-08 18:16] LABS: BASO % 0.4 %; BASO ABS # 0.03 K/uL (0-0.2); COMPLETE YES; EOS % 4.5 %; HEMATOCRIT 35.2 % (37-47); IG% 0.2 %; LYMPH % 20.6 %; LYMPH ABS # 1.72 K/uL (1.2-3.4); MEAN CELL VOLUME 94.9 fL (80-100); MEAN CORPUSCULAR HEMOGLOBIN 31.3 pg (25-34); MEAN PLATELET VOLUME 9.3 fL (7.4-10.4); MONO % 6.7 %; NEUT % 67.6 %; PLATELET COUNT 368 K/uL (130-400); RED BLOOD COUNT 3.71 M/uL (4.2-5.4); WHITE BLOOD COUNT 8.36 K/uL (4.8-10.8)
[2017-05-08 18:26] LABS: BLOOD UREA NITROGEN 23 mg/dl (7-18); BUN/CREATININE RATIO 16.3 (10-20); CALCIUM 9.2 mg/dl (8.5-10.1); CARBON DIOXIDE 28 mmol/L (21-32); CHLORIDE 102 mmol/L (98-107); GLUCOSE 92 mg/dl (70-99); POTASSIUM 4.7 mmol/L (3.5-5.1); SODIUM 137 mmol/L (136-145)
[2017-05-08 18:28] LABS: TOTAL IRON BINDING CAPACITY 230 mcg/dl (250-450)
== END | disposition home or self-care (01) ==
LOC: C.LABMFLN 14:54
PROVIDERS: ATTEND Family Medicine
DX: I48.91 Unspecified atrial fibrillation (principal); D50.0 Iron deficiency anemia secondary to blood loss (chronic); N28.9 Disorder of kidney and ureter, unspecified; N39.0 Urinary tract infection, site not specified

== ENCOUNTER → 2017-05-26 | Outpatient (CLI) | payer OTHER ==
[~2017-05-26] MED LIST changes: -AMOX875T PO; -SULF800T23 PO
[2017-05-26 17:45] LABS: BASO % 0.3 %; BASO ABS # 0.02 K/uL (0-0.2); COMPLETE YES; EOS % 3.7 %; HEMATOCRIT 38.5 % (37-47); IG% 0.1 %; LYMPH % 19.7 %; LYMPH ABS # 1.37 K/uL (1.2-3.4); MEAN CELL VOLUME 96.5 fL (80-100); MEAN CORPUSCULAR HEMOGLOBIN 30.8 pg (25-34); MEAN CORPUSCULAR HGB CONC 31.9 g/dl (32-36); MONO % 7.2 %; PLATELET COUNT 175 K/uL (130-400); RED BLOOD COUNT 3.99 M/uL (4.2-5.4); WHITE BLOOD COUNT 6.96 K/uL (4.8-10.8)
[2017-05-26 17:47] LABS: BLOOD UREA NITROGEN 31 mg/dl (7-18); BUN/CREATININE RATIO 25.9 (10-20); CALCIUM 8.8 mg/dl (8.5-10.1); CARBON DIOXIDE 28 mmol/L (21-32); CHLORIDE 106 mmol/L (98-107); GLUCOSE 90 mg/dl (70-99); POTASSIUM 4.5 mmol/L (3.5-5.1); SODIUM 139 mmol/L (136-145)
[2017-05-26 18:06] LABS: TOTAL IRON BINDING CAPACITY 234 mcg/dl (250-450)
== END | disposition home or self-care (01) ==
LOC: C.LABMFLN 12:42
PROVIDERS: ATTEND Family Medicine
DX: I48.91 Unspecified atrial fibrillation (principal); D50.0 Iron deficiency anemia secondary to blood loss (chronic); N28.9 Disorder of kidney and ureter, unspecified

== ENCOUNTER → 2017-05-30 | Outpatient (CLI) | payer OTHER ==
[2017-05-30 18:13] LABS: URINE APPEARANCE CLOUDY (CLEAR); URINE BILIRUBIN NEG (NEG); URINE COLOR YELLOW; URINE EPITHELIAL CELL AUTO 0-5 /lpf (0-5); URINE NITRITE POS (NEG); URINE PH 7.5 (4.5-7.5); URINE SPECIFIC GRAVITY 1.015 (1.000-1.030); UROBILINOGEN NEG (NEG)
[2017-05-30 18:21] LABS: MANUAL MICROSCOPIC REQUIRED? NO; REVIEW REQ? NO
== END | disposition home or self-care (01) ==
LOC: C.LABMFLN 12:49
PROVIDERS: ATTEND Family Medicine
DX: N39.0 Urinary tract infection, site not specified (principal)

== ENCOUNTER → 2017-06-26 | Outpatient (CLI) | payer OTHER ==
[~2017-06-26] MED LIST changes: +DOXY100C76 PO
[2017-06-26 17:59] LABS: INR 2.6 (0.9-1.1); PROTHROMBIN TIME (PATIENT) 28.6 SECONDS (9.0-12.0)
[2017-06-26 18:16] LABS: URINE APPEARANCE CLOUDY (CLEAR); URINE BILIRUBIN NEG (NEG); URINE COLOR YELLOW; URINE EPITHELIAL CELL AUTO >30 /lpf (0-5); URINE NITRITE POS (NEG); URINE PH >= 9.0 (4.5-7.5); URINE SPECIFIC GRAVITY 1.019 (1.000-1.030); UROBILINOGEN NEG (NEG)
[2017-06-26 18:16] LABS: BLOOD UREA NITROGEN 28 mg/dl (7-18); BUN/CREATININE RATIO 26.6 (10-20); CALCIUM 9.1 mg/dl (8.5-10.1); CARBON DIOXIDE 30 mmol/L (21-32); CHLORIDE 104 mmol/L (98-107); CREATININE 1.05 mg/dl (0.60-1.20); GLUCOSE 79 mg/dl (70-99); POTASSIUM 4.2 mmol/L (3.5-5.1); SODIUM 140 mmol/L (136-145)
[2017-06-26 18:36] LABS: MANUAL MICROSCOPIC REQUIRED? NO; REVIEW REQ? NO; SULFASALICYLIC ACID NEG (NEG)
== END | disposition home or self-care (01) ==
LOC: C.LABMFLN 11:58
PROVIDERS: ATTEND Family Medicine
DX: R39.15 Urgency of urination (principal); I48.91 Unspecified atrial fibrillation; E03.9 Hypothyroidism, unspecified; N28.9 Disorder of kidney and ureter, unspecified; I10 Essential (primary) hypertension

== ENCOUNTER → 2017-10-04 | Outpatient (CLI) | payer OTHER ==
[~2017-10-04] MED LIST changes: -DOXY100C76 PO; -PROB1CAP6
[2017-10-04 17:54] LABS: BASO % 0.3 %; BASO ABS # 0.02 K/uL (0-0.2); EOS % 3.8 %; EOS ABS # 0.23 K/uL (0-0.5); HEMATOCRIT 43.7 % (37-47); HEMOGLOBIN 14.8 g/dL (12.0-16.0); IG# 0.01 K/uL (0.00-0.02); LYMPH % 20.9 %; LYMPH ABS # 1.27 K/uL (1.2-3.4); MEAN CELL VOLUME 96.7 fL (80-100); MEAN CORPUSCULAR HEMOGLOBIN 32.7 pg (25-34); MEAN CORPUSCULAR HGB CONC 33.9 g/dl (32-36); MEAN PLATELET VOLUME 10.1 fL (7.4-10.4); MONO % 6.1 %; MONO ABS # 0.37 K/uL (0.11-0.59); NEUT % 68.7 %; NEUT ABS # 4.18 K/uL (1.4-6.5); PLATELET COUNT 181 K/uL (130-400); RED CELL DISTRIBUTION WIDTH CV 13.4 % (11.5-14.5); RED CELL DISTRIBUTION WIDTH SD 47.5 fL (36.4-46.3); WHITE BLOOD COUNT 6.08 K/uL (4.8-10.8)
[2017-10-04 18:04] LABS: INR 1.8 (0.9-1.1)
[2017-10-04 18:15] LABS: ALBUMIN 3.1 gm/dl (3.4-5.0); ALT/SGPT 26 U/L (12-78); BLOOD UREA NITROGEN 38 mg/dl (7-18); CALCIUM 8.6 mg/dl (8.5-10.1); CARBON DIOXIDE 30 mmol/L (21-32); CHOLESTEROL 164 mg/dl (0-200); CREATININE 1.27 mg/dl (0.60-1.20); GLUCOSE 88 mg/dl (70-99); POTASSIUM 4.3 mmol/L (3.5-5.1); SODIUM 139 mmol/L (136-145)
[2017-10-04 18:24] LABS: ALKALINE PHOSPHATASE 90 U/L (45-117); AST/SGOT 34 U/L (15-37); LDL CHOLESTEROL CALCULATED 98 mg/dl; TOTAL PROTEIN 7.5 gm/dl (6.4-8.2)
== END | disposition home or self-care (01) ==
LOC: C.LABMFLN 11:28
PROVIDERS: ATTEND Family Medicine
DX: I48.91 Unspecified atrial fibrillation (principal); I10 Essential (primary) hypertension; E03.9 Hypothyroidism, unspecified; E78.5 Hyperlipidemia, unspecified

== ENCOUNTER → 2017-10-06 | Outpatient (CLI) | payer OTHER | END | disposition home or self-care (01) | LOC: C.LABMFLN 17:54 | PROVIDERS: ATTEND Family Medicine | DX: R30.0 Dysuria (principal) ==

== ENCOUNTER → 2018-03-05 | Outpatient (CLI) | payer OTHER ==
[~2018-03-05] MED LIST changes: +CMD2 PO; +CMD4 PO; +FURO40TA3 PO; +LCTX PO; +LORA-741 PO; +LOSA1TAB PO; +LSX20 PO; -METO-551 PO; +METO50TA16 PO; +MGNO400 PO; -POTA20TA16 PO; -SACC250C3 PO; -WARF-285 PO
[2018-03-05 13:04] LABS: BASO % 0.4 %; BASO ABS # 0.02 K/uL (0-0.2); EOS % 4.1 %; EOS ABS # 0.22 K/uL (0-0.5); HEMATOCRIT 43.4 % (37-47); HEMOGLOBIN 14.2 g/dL (12.0-16.0); IG# 0.01 K/uL (0.00-0.02); LYMPH % 21.4 %; LYMPH ABS # 1.15 K/uL (1.2-3.4); MEAN CELL VOLUME 98.4 fL (80-100); MEAN CORPUSCULAR HEMOGLOBIN 32.2 pg (25-34); MEAN CORPUSCULAR HGB CONC 32.7 g/dl (32-36); MEAN PLATELET VOLUME 10.1 fL (7.4-10.4); MONO % 7.8 %; MONO ABS # 0.42 K/uL (0.11-0.59); NEUT % 66.1 %; NEUT ABS # 3.55 K/uL (1.4-6.5); PLATELET COUNT 224 K/uL (130-400); RED CELL DISTRIBUTION WIDTH CV 13.1 % (11.5-14.5); RED CELL DISTRIBUTION WIDTH SD 47.2 fL (36.4-46.3); WHITE BLOOD COUNT 5.37 K/uL (4.8-10.8)
[2018-03-05 14:19] LABS: ALBUMIN 2.9 gm/dl (3.4-5.0); ALKALINE PHOSPHATASE 81 U/L (45-117); ALT/SGPT 18 U/L (12-78); AST/SGOT 25 U/L (15-37); BLOOD UREA NITROGEN 25 mg/dl (7-18); CALCIUM 8.7 mg/dl (8.5-10.1); CARBON DIOXIDE 26 mmol/L (21-32); CHOLESTEROL 159 mg/dl (0-200); CREATININE 1.02 mg/dl (0.60-1.20); GLUCOSE 90 mg/dl (70-99); LDL CHOLESTEROL CALCULATED 88 mg/dl; POTASSIUM 3.6 mmol/L (3.5-5.1); SODIUM 141 mmol/L (136-145); TOTAL PROTEIN 7.3 gm/dl (6.4-8.2)
== END | disposition home or self-care (01) ==
LOC: C.LABMFLN 10:04
PROVIDERS: ATTEND Family Medicine
DX: I48.91 Unspecified atrial fibrillation (principal); E03.9 Hypothyroidism, unspecified; E78.5 Hyperlipidemia, unspecified; N39.0 Urinary tract infection, site not specified

== ENCOUNTER 2018-03-09 11:46 | Inpatient (IN) | payer OTHER ==
[~2018-03-09] VITALS: Ht 165.1 cm; Wt 112.7 kg
[~2018-03-09 11:46] MED LIST changes: -CMD2 PO; -FURO40TA3 PO; -LCTX PO; -LORA-741 PO; -LSX20 PO; -MGNO400 PO
[2018-03-09 12:54] LABS: BASO % 0.2 %; BASO ABS # 0.01 K/uL (0-0.2); EOS ABS # 0.13 K/uL (0-0.5); HEMATOCRIT 45.3 % (37-47); HEMOGLOBIN 15.4 g/dL (12.0-16.0); LYMPH % 21.6 %; LYMPH ABS # 0.93 K/uL (1.2-3.4); MEAN CELL VOLUME 96.4 fL (80-100); MEAN CORPUSCULAR HEMOGLOBIN 32.8 pg (25-34); MEAN PLATELET VOLUME 9.9 fL (7.4-10.4); MONO % 8.6 %; MONO ABS # 0.37 K/uL (0.11-0.59); NEUT % 66.6 %; NEUT ABS # 2.86 K/uL (1.4-6.5); PLATELET COUNT 164 K/uL (130-400); RED CELL DISTRIBUTION WIDTH CV 12.9 % (11.5-14.5); RED CELL DISTRIBUTION WIDTH SD 45.2 fL (36.4-46.3)
[2018-03-09 13:12] LABS: ALBUMIN 3.2 gm/dl (3.4-5.0); ALKALINE PHOSPHATASE 95 U/L (45-117); ALT/SGPT 16 U/L (12-78); AST/SGOT 27 U/L (15-37); BLOOD UREA NITROGEN 19 mg/dl (7-18); CALCIUM 8.7 mg/dl (8.5-10.1); CARBON DIOXIDE 23 mmol/L (21-32); CREATININE 1.02 mg/dl (0.60-1.20); GLUCOSE 92 mg/dl (70-99); LIPASE 188 U/L (73-393); SODIUM 140 mmol/L (136-145); TOTAL PROTEIN 7.7 gm/dl (6.4-8.2)
[2018-03-09] MEDS ORDERED: OPTIRAY 320 IV PRN ×2 (13:15→13:45)
[2018-03-09 13:40] LABS: INR 2.2 (0.9-1.1)
--- NOTE | 2018-03-09 14:21 | DIAGNOSTIC IMAGING REPORT ---
CHEST ONE VIEW PORTABLE CLINICAL HISTORY: CHEST PAIN dyspnea COMPARISON STUDY: 02/16/2018 FINDINGS: Mild cardiomegaly. Mild prominence of pulmonary vasculature on a chronic basis. Considerable degenerative change right shoulder unchanged IMPRESSION: Stable cardiomegaly. Chronic prominence of pulmonary vasculature. The above report was generated using voice recognition software. It may contain grammatical, syntax or spelling errors. Electronically signed by: Gilmer Frausto M.D. 03/09/2018 2:19 PM Dictated Date/Time: 03/09/2018 2:19 PM
--- NOTE | 2018-03-09 14:27 | DIAGNOSTIC IMAGING REPORT ---
ABDOMEN AND PELVIS CT WITH IV CONTRAST HISTORY: Acute upper abdominal pain with nausea upper abdominal pain, nausea TECHNIQUE: Multiaxial CT images of the abdomen and pelvis were performed following the use of intravenous contrast. A dose lowering technique was utilized adhering to the principles of ALARA. COMPARISON STUDY: CT abdomen and pelvis 04/28/2017. FINDINGS: Trace left pleural effusion. Subsegmental bibasilar opacities suggest combination of atelectasis with scarring. There is no pneumatosis or pneumoperitoneum identified. Imaged inferior cardiac chambers appear enlarged with coronary arterial calcifications noted. Prior cholecystectomy. Calcific granulomata about the liver and spleen. Mild intrahepatic and extrahepatic biliary ductal dilation is likely on a postsurgical basis. This appears unchanged. Liver otherwise appears unremarkable. Spleen, pancreas and adrenal glands are unremarkable. No renal calculi or obstructive uropathy. Ureters are unremarkable. Decompressed bladder with circumferential wall thickening and mild perivesicular stranding. Prior hysterectomy. No adnexal mass lesion. Extensive calcification of the aorta without aneurysm. IVC is unremarkable. No pathologically enlarged lymph nodes are identified. Small sliding-type hiatal hernia. There is no bowel obstruction identified. Multiple fluid-filled loops of large bowel with air-fluid levels. No bowel wall thickening. Surgically absent appendix. Large ventral abdominal wall hernia containing nonobstructed small bowel and large bowel and mesenteric fat redemonstrated. Diastases measuring 12.4 cm. Defect of the right lower anterior abdominal wall appears chronic without acute inflammatory changes or drainable fluid collection. Demineralized appearance of the bones. Multilevel facet arthropathy. Chronic posttraumatic deformity about the right femoral acetabular joint with moderate left hip posterior arthritis. Levoscoliosis of the lumbar spine. Multilevel discogenic degenerative changes and facet arthropathy. IMPRESSION: 1. Multiple fluid-filled loops of large bowel with air-fluid levels suggest diarrheal illness. 2. No bowel obstruction or focal bowel wall thickening. 3. Trace left pleural effusion. 4. Large ventral abdominal wall hernia redemonstrated containing mesenteric fat and nonobstructed loops of both small and large bowel. 5. Decompressed bladder with circumferential wall thickening and mild perivesicular stranding, unchanged from comparison and suspicious for cystitis. Correlate with urinalysis. 6. Additional findings as above. Electronically signed by: Jose Carlos Gambino M.D. 03/09/2018 2:26 PM Dictated Date/Time: 03/09/2018 2:18 PM
--- NOTE | 2018-03-09 15:01 | EMERGENCY ROOM VISIT NOTE ---
History Report prepared by [place]: Rupal Horta Under the Supervision of: Dr. Sal Beyer M.D. First contact with patient: 12:57 Chief Complaint: ABDOMINAL PAIN Stated Complaint: ABDOMINAL PAIN AND VOMITED Nursing Triage Summary: Abdominal pain and diarrhea for one week per family. Patient states she does not have abdominal pain at this time but has had diarrhea. History of Present Illness The patient is a 78 year old female who presents to the Emergency Room with complaints of intermittent abdominal pain starting last night. The patient states that she has had diarrhea for a week and has been having multiple episodes a day. She states that the diarrhea started right after using antibiotics for a week for a wound infection. The patient states that last night she suddenly had abdominal pain that lasted for a few minutes. She describes it as a cramping. The patient complains of vomiting once, intermittent nausea, loss of appetite, and two wounds not healing appropriately. She notes that she was following with the wound clinic until she was discharged a month ago. The patient denies back pain, chest pain, fever, shortness of breath, increased leg swelling, urinary symptoms, hematochezia, and drainage from her wound. The patient notes that she takes Coumadin. Source of History: patient Onset: last night Position: abdomen Quality: cramping Timing: intermittent Associated Symptoms: + nausea, + vomiting, + diarrhea, No fevers, No chest pain, No SOB, No back pain, No hematochezia, No urinary symptoms Note: The patient complains of loss of appetite and two wounds not healing appropriately. The patient denies increased leg swelling and drainage from her wound. Review of Systems See HPI for pertinent positives and negatives. A total of ten systems were reviewed and were otherwise negative. Past Medical & Surgical Medical Problems: (1) Atrial fibrillation (2) Benign Hypertension (3) Carotid Artery Occlusion W O Cerebral Infarction (4) Cellulitis of left leg (5) Elevated troponin (6) Hyperlipidemia Nec/Nos (7) Hypotension (8) Hypothyroidism Nos Surgical Problems: (1) S/P cholecystectomy Family History Cancer Diabetes mellitus Heart disease Hypertension Social History Smoking Status: Never Smoker Drug Use: none Marital Status: Housing Status: lives with family Occupation Status: retired Current/Historical Medications Scheduled Aspirin (Aspirin Adult Low Dose), 81 MG PO DAILY Atorvastatin (Lipitor), 40 MG PO HS Cholecalciferol (Vitamin D 1000 Unit), 1,000 INTER.UNIT PO DAILY Digoxin (Digoxin), 0.125 MG PO DAILY Escitalopram Oxalate (Escitalopram Oxalate), 20 MG PO DAILY Furosemide (Lasix), 40 MG PO QAM Losartan Potassium (Cozaar), 25 MG PO DAILY Metoprolol Tartrate (Lopressor) (Lopressor), 50 MG PO BID Warfarin Sod (Coumadin), 4 MG PO DAILY Scheduled PRN Lorazepam (Ativan), 0.5 MG PO BID PRN for Anxiety/Agitation Allergies Coded Allergies: Oxytetracycline (Verified Allergy, Intermediate, "felt like a big ball in my stomach", 03/09/18) Polymyxin B (Verified Allergy, Intermediate, "felt like a big ball in my stomach", 03/09/18) Physical Exam Vital Signs Date Time Temp Pulse Resp B/P (MAP) Pulse Ox O2 Delivery O2 Flow Rate FiO2 03/09/18 14:55 69 03/09/18 14:41 69 20 131/82 94 Room Air 03/09/18 13:27 95 Room Air 03/09/18 13:27 95 Room Air 03/09/18 13:27 81 21 173/97 95 Room Air 03/09/18 11:50 36.6 67 20 108/74 96 Room Air Physical Exam GENERAL: Awake, alert, well-appearing, in no distress HENT: Normocephalic, atraumatic. Oropharynx unremarkable. EYES: Normal conjunctiva. Sclera non-icteric. NECK: Supple. No nuchal rigidity. RESPIRATORY: Clear to auscultation. No wheezes. Normal respiratory effort. CARDIAC: Normal rate. Irregular rhythm. Extremities warm and well perfused. GI: Soft, non-distended. No tenderness to palpation. No rebound or guarding. No masses. Healed surgical wounds with a left sided large nontender ventral hernia. RUQ chronic wound with granulation tissue without significant discharge or tenderness, 8 cm by 18 cm. No other significant tenderness. RECTAL: Deferred. MUSCULOSKELETAL: Atraumatic. Chest examination reveals no tenderness. right upper chest wall with 1 cm of old wound with slight erythema and scab. The back is symmetrical on inspection without obvious abnormality. There is no CVA tenderness to palpation. LOWER EXTREMITIES: Calves are equal size bilaterally and non-tender. 3+ bilateral lower extremity edema NEURO: Normal sensorium. No sensory or motor deficits noted. SKIN: Warm and dry. No rash or jaundice noted. Medical Decision & Procedures ER Provider Diagnostic Interpretation: Radiology results as stated below per my review and radiologist interpretation: CHEST ONE VIEW PORTABLE CLINICAL HISTORY: CHEST PAIN dyspnea COMPARISON STUDY: 02/16/2018 FINDINGS: Mild cardiomegaly. Mild prominence of pulmonary vasculature on a chronic basis. Considerable degenerative change right shoulder unchanged IMPRESSION: Stable cardiomegaly. Chronic prominence of pulmonary vasculature. The above report was generated using voice recognition software. It may contain grammatical, syntax or spelling errors. Electronically signed by: Gilmer Frausto M.D. 03/09/2018 2:19 PM Dictated Date/Time: 03/09/2018 2:19 PM ABDOMEN AND PELVIS CT WITH IV CONTRAST HISTORY: Acute upper abdominal pain with nausea upper abdominal pain, nausea TECHNIQUE: Multiaxial CT images of the abdomen and pelvis were performed following the use of intravenous contrast. A dose lowering technique was utilized adhering to the principles of ALARA. COMPARISON STUDY: CT abdomen and pelvis 04/28/2017. FINDINGS: Trace left pleural effusion. Subsegmental bibasilar opacities suggest combination of atelectasis with scarring. There is no pneumatosis or pneumoperitoneum identified. Imaged inferior cardiac chambers appear enlarged with coronary arterial calcifications noted. Prior cholecystectomy. Calcific granulomata about the liver and spleen. Mild intrahepatic and extrahepatic biliary ductal dilation is likely on a postsurgical basis. This appears unchanged. Liver otherwise appears unremarkable. Spleen, pancreas and adrenal glands are unremarkable. No renal calculi or obstructive uropathy. Ureters are unremarkable. Decompressed bladder with circumferential wall thickening and mild perivesicular stranding. Prior hysterectomy. No adnexal mass lesion. Extensive calcification of the aorta without aneurysm. IVC is unremarkable. No pathologically enlarged lymph nodes are identified. Small sliding-type hiatal hernia. There is no bowel obstruction identified. Multiple fluid-filled loops of large bowel with air-fluid levels. No bowel wall thickening. Surgically absent appendix. Large ventral abdominal wall hernia containing nonobstructed small bowel and large bowel and mesenteric fat redemonstrated. Diastases measuring 12.4 cm. Defect of the right lower anterior abdominal wall appears chronic without acute inflammatory changes or drainable fluid collection. Demineralized appearance of the bones. Multilevel facet arthropathy. Chronic posttraumatic deformity about the right femoral acetabular joint with moderate left hip posterior arthritis. Levoscoliosis of the lumbar spine. Multilevel discogenic degenerative changes and facet arthropathy. IMPRESSION: 1. Multiple fluid-filled loops of large bowel with air-fluid levels suggest diarrheal illness. 2. No bowel obstruction or focal bowel wall thickening. 3. Trace left pleural effusion. 4. Large ventral abdominal wall hernia redemonstrated containing mesenteric fat and nonobstructed loops of both small and large bowel. 5. Decompressed bladder with circumferential wall thickening and mild perivesicular stranding, unchanged from comparison and suspicious for cystitis. Correlate with urinalysis. 6. Additional findings as above. Electronically signed by: Jose Carlos Gambino M.D. 03/09/2018 2:26 PM Dictated Date/Time: 03/09/2018 2:18 PM Laboratory Results 03/09/18 12:15 Red Blood Count 4.70, Mean Corpuscular Volume 96.4, Mean Corpuscular Hemoglobin 32.8, Mean Corpuscular Hemoglobin Concent 34.0, Mean Platelet Volume 9.9, Neutrophils (%) (Auto) 66.6, Lymphocytes (%) (Auto) 21.6, Monocytes (%) (Auto) 8.6, Eosinophils (%) (Auto) 3.0, Basophils (%) (Auto) 0.2, Neutrophils # (Auto) 2.86, Lymphocytes # (Auto) 0.93, Monocytes # (Auto) 0.37, Eosinophils # (Auto) 0.13, Basophils # (Auto) 0.01 03/09/18 12:15 Test 03/09/18 12:15 03/09/18 13:30 White Blood Count 4.30 K/uL (4.8-10.8) Red Blood Count 4.70 M/uL (4.2-5.4) Hemoglobin 15.4 g/dL (12.0-16.0) Hematocrit 45.3 % (37-47) Mean Corpuscular Volume 96.4 fL (80-100) Mean Corpuscular Hemoglobin 32.8 pg (25-34) Mean Corpuscular Hemoglobin Concent 34.0 g/dl (32-36) Platelet Count 164 K/uL (130-400) Mean Platelet Volume 9.9 fL (7.4-10.4) Neutrophils (%) (Auto) 66.6 % Lymphocytes (%) (Auto) 21.6 % Monocytes (%) (Auto) 8.6 % Eosinophils (%) (Auto) 3.0 % Basophils (%) (Auto) 0.2 % Neutrophils # (Auto) 2.86 K/uL (1.4-6.5) Lymphocytes # (Auto) 0.93 K/uL (1.2-3.4) Monocytes # (Auto) 0.37 K/uL (0.11-0.59) Eosinophils # (Auto) 0.13 K/uL (0-0.5) Basophils # (Auto) 0.01 K/uL (0-0.2) RDW Standard Deviation 45.2 fL (36.4-46.3) RDW Coefficient of Variation 12.9 % (11.5-14.5) Immature Granulocyte % (Auto) 0.0 % Immature Granulocyte # (Auto) 0.00 K/uL (0.00-0.02) Prothrombin Time 23.0 SECONDS (9.0-12.0) Prothromb Time International Ratio 2.2 (0.9-1.1) Activated Partial Thromboplast Time 36.0 SECONDS (21.0-31.0) Partial Thromboplastin Ratio 1.4 Anion Gap 8.0 mmol/L (3-11) Estimated GFR () 61.0 Estimated GFR (Non- 52.6 BUN/Creatinine Ratio 18.7 (10-20) Calcium Level 8.7 mg/dl (8.5-10.1) Total Bilirubin 1.2 mg/dl (0.2-1) Aspartate Amino Transf (AST/SGOT) 27 U/L (15-37) Alanine Aminotransferase (ALT/SGPT) 16 U/L (12-78) Alkaline Phosphatase 95 U/L (45-117) Troponin I 0.224 ng/ml (0-0.045) Total Protein 7.7 gm/dl (6.4-8.2) Albumin 3.2 gm/dl (3.4-5.0) Globulin 4.5 gm/dl (2.5-4.0) Albumin/Globulin Ratio 0.7 (0.9-2) Lipase 188 U/L (73-393) Digoxin Level 0.3 ng/ml (0.8-2.0) Urine Color DK YELLOW Urine Appearance CLEAR (CLEAR) Urine pH 5.0 (4.5-7.5) Urine Specific Procious 1.020 (1.000-1.030) Urine Protein 1+ (NEG) Urine Glucose (UA) NEG (NEG) Urine Ketones TRACE (NEG) Urine Occult Blood 2+ (NEG) Urine Nitrite NEG (NEG) Urine Bilirubin NEG (NEG) Urine Urobilinogen NEG (NEG) Urine Leukocyte Esterase NEG (NEG) Urine WBC (Auto) 1-5 /hpf (0-5) Urine RBC (Auto) 5-10 /hpf (0-4) Urine Hyaline Casts (Auto) 5-10 /lpf (0-5) Urine Epithelial Cells (Auto) >30 /lpf (0-5) Urine Bacteria (Auto) NEG (NEG) Laboratory results reviewed by me Medications Administered Medications (Trade) Dose Ordered Sig/Mariaelena Route Start Time Stop Time Status Last Admin Dose Admin Warfarin Sodium (Coumadin Tab) 4 mg DAILY@1600 PO 03/09/18 16:00 04/08/18 15:59 03/09/18 20:10 4 MG ECG Per My Interpretation Indication: abdominal pain Rate (beats per minute): 71 Rhythm: atrial fibrillation Findings: other (normal QRS, no ST elevations) Comparison ECG Date: 02/16/2018 Change: no significant change ED Course 1259: The patient was evaluated in room C12B. A complete history and physical exam was performed. 1441: I reevaluated the patient and she was comfortably. I updated her on her labs and imaging findings at this time. 1447: Discussed the patient's case with Dr. Avila- [facility] Hospitalist. The patient will be evaluated for further treatment and disposition. Medical Decision Differential diagnosis: Etiologies such as ACS, appendicitis, diverticulitis, PUD, biliary pathology, UTI, pancreatitis, obstruction, mesenteric ischemia, aortic pathology, infections, inflammatory bowel disease, renal colic, as well as others were entertained. Patient presents with complaint of abdominal pain last night with a week of diarrhea. Pain resolved now. States that she has been adamantly nauseous and not had much to eat today. Denies chest pain. Chronic wounds on the upper chest and right upper quadrant there not significantly changed but with significant delayed healing. Benign abdominal exam. Well-appearing. Was on antibiotics recently will stand stool and C. difficile study if able. Given her history CT of the abdomen pelvis was completed to exclude intra-abdominal process. EKG is not significantly changed with atrial fibrillation. Troponin is mildly elevated at ~0.2. Chest x-ray unremarkable. Given this believe that inpatient admission for further cardiac monitoring and trending troponin is warranted. No active chest pain at this time. Likely small cardiac demand ischemia and having diarrhea again likely secondary to gastroenteritis versus C. difficile. Does not appear toxic. Will await stool culture results before empirically treating for C. difficile. Admission to floor. Medication Reconcilliation Current Medication List: was personally reviewed by me Blood Pressure Screening Patient's blood pressure: Elevated blood pressure Will be further monitored by the hospitalist. Consults Time Called: 1442 Consulting Physician: Dr. Chaka DONALDSON Hospitalist Returned Call: [phone] Discussed the patient's case with Dr. Chaka DONALDSON Hospitalist. The patient will be evaluated for further treatment and disposition. Impression Primary Impression: Non-ST elevated myocardial infarction (non-STEMI) Additional Impression: Acute gastroenteritis Scribe Attestation The scribe's documentation has been prepared under my direction and personally reviewed by me in its entirety. I confirm that the note above accurately reflects all work, treatment, procedures, and medical decision making performed by me. Departure Information Dispostion Being Evaluated By Hospitalist Referrals No Doctor, Assigned (PCP) Patient Instructions My [facility] Problem Qualifiers
[2018-03-09] MEDS ORDERED: LORAZEPAM 0.5 MG TAB PO PRN (15:45)
[2018-03-09] MEDS ORDERED: ONDANSETRON INJ 2 MG/ML 2 ML VIAL IV PRN (15:45)
[2018-03-09] MEDS ORDERED: ACETAMINOPHEN 325 MG TAB PO PRN (15:45)
[2018-03-09] MEDS ORDERED: MAGNESIUM HYDROXIDE SUSP 30 ML UDC PO PRN (15:45)
[2018-03-09] MEDS ORDERED: LORA-741 PO (15:51)
[2018-03-09] MEDS ORDERED: FURO40TA3 PO (15:51)
[2018-03-09] MEDS ORDERED: WARFARIN SOD 4 MG TAB PO SCH (16:00)
--- NOTE | 2018-03-09 16:19 | History and Physical ---
History & Physical Date & Time of Service: Mar 09, 2018 at 16:00 Chief Complaint: Abdominal Pain And Vomited Primary Care Physician: Jeremie Parmar M.D. History of Present Illness Source: patient 78 y/o F c/o epigastric pain and diarrhea. Pt states she has had diarrhea for about the last week. She is having episodes whenever she urinates, at least 3- 4x/day or more. She has had nausea with this as well but not emesis until she woke around 3am with sudden onset epigastric pain that lasted for less than 1 minute and has not returned. She did not vomit much volume as she has had minimal PO intake the last week due to the nausea. She had a piece of toast yesterday, but nothing much prior. She also states that she has not taken much in terms of fluids. She has been able to take all of her medicines as prescribed though. No one in her home is sick with this same issue, but her home PT had to cx a few appts due to diarrheal illness just prior to pt's onset of sx. Pt states she has never had epigastric pain like this, but it has not returned. She states she is feeling somewhat improved now already and is actually hungry for the first time since this started. Pt denies fever, SOB, chest pain. Pt has chronic LE pain and swelling s/p venous stripping decades ago and feels that this is at her baseline. Pt was a recent d/c from [facility] on 02/20 for UTI and abd wall cellulitis. She has had no further UTI sx and her abd wall cellulitis has resolved completely. She finished her course of outpt abx. Past Medical/Surgical History Afib, on coumadin HTN Hyperlipidemia Hypothyroid Hx of [place] Chronic LE swelling s/p venous stripping Family History Family history was reviewed; no changes noted. Mother: CVA Father: CVA Social History Smoking Status: Never Smoker Alcohol Use: none Drug Use: none Marital Status: Housing status: lives with family Occupational Status: retired Allergies Coded Allergies: Oxytetracycline (Verified Allergy, Intermediate, "felt like a big ball in my stomach", 03/09/18) Polymyxin B (Verified Allergy, Intermediate, "felt like a big ball in my stomach", 03/09/18) Home Medications Scheduled Aspirin (Aspirin Adult Low Dose), 81 MG PO DAILY Atorvastatin (Lipitor), 40 MG PO HS Cholecalciferol (Vitamin D 1000 Unit), 1,000 INTER.UNIT PO DAILY Digoxin (Digoxin), 0.125 MG PO DAILY Escitalopram Oxalate (Escitalopram Oxalate), 20 MG PO DAILY Furosemide (Lasix), 40 MG PO QAM Losartan Potassium (Cozaar), 25 MG PO DAILY Metoprolol Tartrate (Lopressor) (Lopressor), 50 MG PO BID Warfarin Sod (Coumadin), 4 MG PO DAILY Scheduled PRN Lorazepam (Ativan), 0.5 MG PO BID PRN for Anxiety/Agitation Review of Systems Pertinent positives and negatives reviewed in HPI--all others negative Physical Exam Vital Signs Date Time Temp Pulse Resp B/P (MAP) Pulse Ox O2 Delivery O2 Flow Rate FiO2 03/09/18 14:55 69 03/09/18 14:41 69 20 131/82 94 Room Air 03/09/18 13:27 95 Room Air 03/09/18 13:27 95 Room Air 03/09/18 13:27 81 21 173/97 95 Room Air 03/09/18 11:50 36.6 67 20 108/74 96 Room Air General Appearance: WD/WN, no apparent distress Head: normocephalic, atraumatic Eyes: normal inspection, sclerae normal Respiratory/Chest: normal breath sounds, no respiratory distress Cardiovascular: regular rate, rhythm, normal peripheral pulses Abdomen/GI: non tender, soft, + distended (hernia) Extremities/Musculoskelatal: + calf tenderness (present b/l and at baseline), + swelling (chronic and at baseline) Neurologic/Psych: alert, normal mood/affect, oriented x 3 Skin: normal color, warm/dry Diagnostics Laboratory Results Results Past 24 Hours Test 03/09/18 12:15 03/09/18 13:30 Range/Units White Blood Count 4.30 4.8-10.8 K/uL Red Blood Count 4.70 4.2-5.4 M/uL Hemoglobin 15.4 12.0-16.0 g/dL Hematocrit 45.3 37-47 % Mean Corpuscular Volume 96.4 80-100 fL Mean Corpuscular Hemoglobin 32.8 25-34 pg Mean Corpuscular Hemoglobin Concent 34.0 32-36 g/dl Platelet Count 164 130-400 K/uL Mean Platelet Volume 9.9 7.4-10.4 fL Neutrophils (%) (Auto) 66.6 % Lymphocytes (%) (Auto) 21.6 % Monocytes (%) (Auto) 8.6 % Eosinophils (%) (Auto) 3.0 % Basophils (%) (Auto) 0.2 % Neutrophils # (Auto) 2.86 1.4-6.5 K/uL Lymphocytes # (Auto) 0.93 1.2-3.4 K/uL Monocytes # (Auto) 0.37 0.11-0.59 K/uL Eosinophils # (Auto) 0.13 0-0.5 K/uL Basophils # (Auto) 0.01 0-0.2 K/uL RDW Standard Deviation 45.2 36.4-46.3 fL RDW Coefficient of Variation 12.9 11.5-14.5 % Immature Granulocyte % (Auto) 0.0 % Immature Granulocyte # (Auto) 0.00 0.00-0.02 K/uL Prothrombin Time 23.0 9.0-12.0 SECONDS Prothromb Time International Ratio 2.2 0.9-1.1 Activated Partial Thromboplast Time 36.0 21.0-31.0 SECONDS Partial Thromboplastin Ratio 1.4 Sodium Level 140 136-145 mmol/L Potassium Level 4.0 3.5-5.1 mmol/L Chloride Level 109 98-107 mmol/L Carbon Dioxide Level 23 21-32 mmol/L Anion Gap 8.0 3-11 mmol/L Blood Urea Nitrogen 19 7-18 mg/dl Creatinine 1.02 0.60-1.20 mg/dl Estimated GFR () 61.0 Estimated GFR (Non- 52.6 BUN/Creatinine Ratio 18.7 10-20 Random Glucose 92 70-99 mg/dl Calcium Level 8.7 8.5-10.1 mg/dl Total Bilirubin 1.2 0.2-1 mg/dl Aspartate Amino Transf (AST/SGOT) 27 15-37 U/L Alanine Aminotransferase (ALT/SGPT) 16 12-78 U/L Alkaline Phosphatase 95 45-117 U/L Troponin I 0.224 0-0.045 ng/ml Total Protein 7.7 6.4-8.2 gm/dl Albumin 3.2 3.4-5.0 gm/dl Globulin 4.5 2.5-4.0 gm/dl Albumin/Globulin Ratio 0.7 0.9-2 Lipase 188 73-393 U/L Digoxin Level 0.3 0.8-2.0 ng/ml Urine Color DK YELLOW Urine Appearance CLEAR CLEAR Urine pH 5.0 4.5-7.5 Urine Specific [place] 1.020 1.000-1.030 Urine Protein 1+ NEG Urine Glucose (UA) NEG NEG Urine Ketones TRACE NEG Urine Occult Blood 2+ NEG Urine Nitrite NEG NEG Urine Bilirubin NEG NEG Urine Urobilinogen NEG NEG Urine Leukocyte Esterase NEG NEG Urine WBC (Auto) 1-5 0-5 /hpf Urine RBC (Auto) 5-10 0-4 /hpf Urine Hyaline Casts (Auto) 5-10 0-5 /lpf Urine Epithelial Cells (Auto) >30 0-5 /lpf Urine Bacteria (Auto) NEG NEG Diagnostic Radiology CXR: neg for acute CT AP: c/w diarrheal illness, ?? cystitis noted, hernia noted without obstruction EKG Afib Impression Assessment and Plan 78 y/o F who was admitted on 03/09 with acute diarrheal illness and elevated trop Acute diarrheal illness: likely viral, interaction with home PT who had similar sx Cdiff pending WBC WNL, afebrile CT AP noted for diarrheal findings Monitor with gentle IVF given hx of Add probiotics and would benefit from ongoing probiotics as outpt Elevated trop: hx of same, however slightly higher today in setting of acute illness and epigastric pain Baseline is 0.01, serials pending ECHO 04/2017 with EF 65-70% and severe , will hold on repeat for now given this is likely chronically elevated Abn UA: 2+ blood in the setting of recent tx UTI CT AP noted possible cystis, which could be related to resolved UTI Urine cx pending Holding on abx for now given above Afib: continue home meds INR WNL, continue coumadin 4mg HS Severe /chronic LE edema: did not take AM lasix dosing Give one dose now given IVF and monitor HTN: continue home meds Hypothyroid: continue home meds Hx of [place]: continue aspirin 81mg Other: Full code Therapeutic on coumadin for DVT proph Full liquids for now, ADAT Resuscitation Status VTE Prophylaxis Will order VTE Prophylaxis: Yes Additional Copies To Jeremie Parmar M.D.
[2018-03-09] MEDS ORDERED: FUROSEMIDE ORAL SOLN 40 MG/5 ML UDP PO ONE ×2 (16:30→17:30)
[2018-03-09 18:32] VITALS: BP 160/92; PULSE 101; TEMP 36.6; O2SAT 92; BMI 41.8
[2018-03-09 19:52] VITALS: BP 168/97; PULSE 78; TEMP 36.5; O2SAT 95
[2018-03-09] MEDS: LACTOBACILLUS ACIDOPHILUS (FLORANEX) TAB PO SCH (20:10)
[2018-03-09] MEDS: SODIUM CHLORIDE 0.45% 1000ML 1,000 ML IV SCH (20:12)
[2018-03-09] MEDS: ATORVASTATIN 40 MG TAB PO SCH (21:34)
[2018-03-09] MEDS: DIGOXIN 0.125 MG TAB PO SCH (21:35)
[2018-03-09] MEDS: METOPROLOL TARTRATE 50 MG TAB PO SCH (21:35)
[2018-03-09 23:50] VITALS: BP 145/79; PULSE 89; TEMP 36.9; O2SAT 95
[2018-03-10] VITALS (8 sets, daily range): BP systolic 111–144; BP diastolic 63–87; PULSE 58–87; TEMP 36.4–37; O2SAT 94–98; Ht 165.1 cm; Wt 112.7 kg
[2018-03-10 08:04] LABS: INR 2.8 (0.9-1.1)
[2018-03-10] MEDS: ESCITALOPRAM OXALATE 20 MG TAB PO SCH (08:24)
[2018-03-10] MEDS: LOSARTAN POTASSIUM 25 MG TAB PO SCH (08:25)
[2018-03-10] MEDS: METOPROLOL TARTRATE 50 MG TAB PO SCH ×2 (08:25→21:21)
[2018-03-10] MEDS: ASPIRIN 81 MG ECTAB PO SCH (08:25)
[2018-03-10] MEDS: LACTOBACILLUS ACIDOPHILUS (FLORANEX) TAB PO SCH ×3 (08:26→16:43)
[2018-03-10] MEDS: CHOLECALCIFEROL 1000 INTER.UNIT TAB PO SCH (08:26)
[2018-03-10] MEDS: FUROSEMIDE 40 MG TAB PO SCH (08:26)
--- NOTE | 2018-03-10 09:13 | Progress Note ---
Subjective Date of Service: Mar 10, 2018. Subjective pt states she is feeling better but still with some diarrhea Problem List Medical Problems: (1) Acute gastroenteritis Status: Acute (2) Cellulitis Status: Acute (3) Cellulitis Status: Acute (4) Cellulitis Status: Acute (5) Cellulitis of right leg Status: Acute (6) Cellulitis of right thigh Status: Acute (7) CHF (congestive heart failure) Status: Acute (8) Non-ST elevated myocardial infarction (non-STEMI) Status: Acute (9) Sepsis Status: Acute (10) Sepsis Status: Acute Review of Systems Constitutional: + weakness, No fever, No chills, No fatigue Respiratory: No cough, No sputum, No shortness of breath Cardiac: No chest pain, No edema Abdomen: + diarrhea, No pain, No nausea, No vomiting, No constipation Musculoskeletal: No joint pain, No muscle pain Neurologic: No memory loss, No paralysis Objective Vital Signs Date Time Temp Pulse Resp B/P (MAP) Pulse Ox O2 Delivery O2 Flow Rate FiO2 03/10/18 08:28 72 03/10/18 07:57 36.6 58 18 134/82 (99) 98 Room Air 03/10/18 06:51 36.4 67 20 111/73 (86) 97 03/10/18 03:30 36.6 73 17 144/82 (102) 96 Room Air 03/09/18 23:50 36.9 89 18 145/79 (101) 95 Room Air 03/09/18 21:35 96 03/09/18 20:00 Room Air 03/09/18 19:52 36.5 78 18 168/97 (120) 95 Room Air 03/09/18 18:32 36.6 101 16 160/92 92 Room Air 03/09/18 17:15 101 24 168/113 95 03/09/18 16:41 87 17 154/103 94 Room Air 03/09/18 14:55 69 03/09/18 14:41 69 20 131/82 94 Room Air 03/09/18 13:27 95 Room Air 03/09/18 13:27 95 Room Air 03/09/18 13:27 81 21 173/97 95 Room Air 03/09/18 11:50 36.6 67 20 108/74 96 Room Air Physical Exam General Appearance: WD/WN, + mild distress Eyes: normal inspection, PERRL, EOMI, sclerae normal Respiratory/Chest: chest non-tender, lungs clear, normal breath sounds Cardiovascular: regular rate, rhythm, + systolic murmur Abdomen: normal bowel sounds, non tender, soft Extremities: no pedal edema, no calf tenderness Laboratory Results Last 24 Hours Test 03/09/18 12:15 03/09/18 13:30 03/09/18 21:39 03/10/18 07:36 White Blood Count 4.30 K/uL Red Blood Count 4.70 M/uL Hemoglobin 15.4 g/dL Hematocrit 45.3 % Mean Corpuscular Volume 96.4 fL Mean Corpuscular Hemoglobin 32.8 pg Mean Corpuscular Hemoglobin Concent 34.0 g/dl Platelet Count 164 K/uL Mean Platelet Volume 9.9 fL Neutrophils (%) (Auto) 66.6 % Lymphocytes (%) (Auto) 21.6 % Monocytes (%) (Auto) 8.6 % Eosinophils (%) (Auto) 3.0 % Basophils (%) (Auto) 0.2 % Neutrophils # (Auto) 2.86 K/uL Lymphocytes # (Auto) 0.93 K/uL Monocytes # (Auto) 0.37 K/uL Eosinophils # (Auto) 0.13 K/uL Basophils # (Auto) 0.01 K/uL RDW Standard Deviation 45.2 fL RDW Coefficient of Variation 12.9 % Immature Granulocyte % (Auto) 0.0 % Immature Granulocyte # (Auto) 0.00 K/uL Prothrombin Time 23.0 SECONDS 28.8 SECONDS Prothromb Time International Ratio 2.2 2.8 Activated Partial Thromboplast Time 36.0 SECONDS Partial Thromboplastin Ratio 1.4 Sodium Level 140 mmol/L Potassium Level 4.0 mmol/L Chloride Level 109 mmol/L Carbon Dioxide Level 23 mmol/L Anion Gap 8.0 mmol/L Blood Urea Nitrogen 19 mg/dl Creatinine 1.02 mg/dl Estimated GFR () 61.0 Estimated GFR (Non- 52.6 BUN/Creatinine Ratio 18.7 Random Glucose 92 mg/dl Calcium Level 8.7 mg/dl Total Bilirubin 1.2 mg/dl Aspartate Amino Transf (AST/SGOT) 27 U/L Alanine Aminotransferase (ALT/SGPT) 16 U/L Alkaline Phosphatase 95 U/L Troponin I 0.224 ng/ml 0.224 ng/ml 0.213 ng/ml Total Protein 7.7 gm/dl Albumin 3.2 gm/dl Globulin 4.5 gm/dl Albumin/Globulin Ratio 0.7 Lipase 188 U/L Digoxin Level 0.3 ng/ml Urine Color DK YELLOW Urine Appearance CLEAR Urine pH 5.0 Urine Specific [place] 1.020 Urine Protein 1+ Urine Glucose (UA) NEG Urine Ketones TRACE Urine Occult Blood 2+ Urine Nitrite NEG Urine Bilirubin NEG Urine Urobilinogen NEG Urine Leukocyte Esterase NEG Urine WBC (Auto) 1-5 /hpf Urine RBC (Auto) 5-10 /hpf Urine Hyaline Casts (Auto) 5-10 /lpf Urine Epithelial Cells (Auto) >30 /lpf Urine Bacteria (Auto) NEG Triglycerides Level 71 mg/dl Cholesterol Level 112 mg/dl HDL Cholesterol 40 mg/dl LDL Cholesterol, Calculated 58 mg/dl VLDL Cholesterol, Calculated 14 mg/dl Cholesterol/HDL Ratio 2.8 Assessment and Plan 78 y/o F who was admitted on 03/09 with acute diarrheal illness and elevated trop , complicated by chronic diastolic HF from severe Acute diarrheal illness: likely viral, CT AP noted for diarrheal findings Monitor with gentle IVF given hx of Severe Add probiotics and would benefit from ongoing probiotics as outpt Elevated trop: hx of same, likely supply demand mismatch from illness ECHO 04/2017 with EF 65-70% and severe , will hold on repeat for now given this is likely chronically elevated Abn UA: 2+ blood in the setting of recent tx UTI CT AP noted possible cystis, which could be related to resolved UTI Urine cx pending, Holding on abx unless culture Afib: continue metoprolol and digoxin, coumadin for full anticoagulation INR creeping up will reduce warfarin to 3 mg 03/10 Severe /chronic diastolic heart failure: lasix daily and maintain good rate control of afib. good htn control with cozaar Hypothyroid: continue home meds Hx of [place]: continue aspirin 81mg Full code, coumadin for DVT proph
[2018-03-10] MEDS ORDERED: WARFARIN SOD 3 MG TAB PO SCH (16:00)
[2018-03-10] MEDS: SODIUM CHLORIDE 0.45% 1000ML 1,000 ML IV SCH (19:30)
[2018-03-10] MEDS: ATORVASTATIN 40 MG TAB PO SCH (21:21)
[2018-03-10] MEDS: DIGOXIN 0.125 MG TAB PO SCH (21:21)
[2018-03-11 03:35] VITALS: BP 110/70; PULSE 86; TEMP 37.1; O2SAT 95
[2018-03-11 06:45] VITALS: BP 116/68; PULSE 64; TEMP 36.9; O2SAT 95
[2018-03-11 07:06] LABS: CALCIUM 8.3 mg/dl (8.5-10.1); CREATININE 1.33 mg/dl (0.60-1.20); POTASSIUM 3.8 mmol/L (3.5-5.1)
[2018-03-11 07:11] LABS: HEMATOCRIT 43.3 % (37-47); MEAN CELL VOLUME 98.4 fL (80-100); MEAN CORPUSCULAR HEMOGLOBIN 31.8 pg (25-34); MEAN CORPUSCULAR HGB CONC 32.3 g/dl (32-36); MEAN PLATELET VOLUME 10.2 fL (7.4-10.4); PLATELET COUNT 156 K/uL (130-400); RED CELL DISTRIBUTION WIDTH CV 13.3 % (11.5-14.5); RED CELL DISTRIBUTION WIDTH SD 47.7 fL (36.4-46.3); WHITE BLOOD COUNT 5.31 K/uL (4.8-10.8)
[2018-03-11] MEDS: ASPIRIN 81 MG ECTAB PO SCH (08:39)
[2018-03-11] MEDS: CHOLECALCIFEROL 1000 INTER.UNIT TAB PO SCH (08:39)
[2018-03-11] MEDS: ESCITALOPRAM OXALATE 20 MG TAB PO SCH (08:39)
[2018-03-11] MEDS: LOSARTAN POTASSIUM 25 MG TAB PO SCH (08:39)
[2018-03-11] MEDS: LACTOBACILLUS ACIDOPHILUS (FLORANEX) TAB PO SCH ×3 (08:41→17:16)
[2018-03-11] MEDS: METOPROLOL TARTRATE 50 MG TAB PO SCH ×2 (08:42→20:49)
[2018-03-11] MEDS: FUROSEMIDE 40 MG TAB PO SCH (08:44)
[2018-03-11 13:15] VITALS: BP 100/66; PULSE 69; TEMP 36.6; O2SAT 94
--- NOTE | 2018-03-11 14:36 | Progress Note ---
Subjective Date of Service: Mar 11, 2018. Subjective Pt evaluation today including: conversation w/ patient, physical exam, chart review, lab review, review of studies, conversation w/ oncology consultant, review of inpatient medication list Diarrhea is better today, 1-2 bowel movement today, started diet, tolerating okay, Problem List Medical Problems: (1) Acute gastroenteritis Status: Acute (2) Cellulitis Status: Acute (3) Cellulitis Status: Acute (4) Cellulitis Status: Acute (5) Cellulitis of right leg Status: Acute (6) Cellulitis of right thigh Status: Acute (7) CHF (congestive heart failure) Status: Acute (8) Non-ST elevated myocardial infarction (non-STEMI) Status: Acute (9) Sepsis Status: Acute (10) Sepsis Status: Acute Review of Systems Constitutional: + weakness, + fatigue, No fever, No chills, No sweats, No weight loss, No problem reported Eyes: No worsening of vision, No eye pain, No redness, No discharge, No diplopia ENT: No hearing loss, No unusual epistaxis, No nasal symptoms, No sore throat, No tinnitus, No dental problems, No trouble swallowing Respiratory: No cough, No sputum, No wheezing, No shortness of breath, No dyspnea on exertion, No dyspnea at rest, No hemoptysis Cardiac: No chest pain, No orthopnea, No PND, No edema, No claudication, No palpitations Abdomen: No pain, No nausea, No vomiting, No diarrhea, No constipation Musculoskeletal: No joint pain, No muscle pain, No swelling, No calf pain Female : No dysuria, No urinary frequency, No hematuria, No incontinence, No abnormal vaginal bleeding, No vaginal discharge Neurologic: No memory loss, No paralysis, No weakness, No numbness/tingling, No vertigo, No balance problems Psychiatric: No depression symptoms, No anhedonism, No anxiety, No insomnia, No substance abuse Heme: No abnormal bleeding/bruising, No clotting problems, No swollen lymph nodes, No night sweats Endo: No fatigue, No excessive thirst, No excessive urination Skin: No rash, No itch, No new/changing skin lesions, No color change, No bleeding Objective Vital Signs Date Time Temp Pulse Resp B/P (MAP) Pulse Ox O2 Delivery O2 Flow Rate FiO2 03/11/18 13:15 36.6 69 20 100/66 (77) 94 Room Air 7/29/18 08:00 Room Air 03/11/18 06:45 36.9 64 16 116/68 (84) 95 Room Air 03/11/18 03:35 37.1 86 16 110/70 (83) 95 Room Air 03/10/18 23:00 36.9 79 18 121/69 (86) 97 Room Air 03/10/18 21:21 72 03/10/18 20:01 Room Air 03/10/18 20:01 37.0 68 22 113/77 (89) 94 Nasal Cannula 03/10/18 16:00 Room Air 03/10/18 15:36 36.8 87 14 133/63 (86) 96 Nasal Cannula 2.0 Physical Exam General Appearance: WD/WN, no apparent distress Eyes: normal inspection, PERRL, EOMI, sclerae normal ENT: normal ENT inspection, hearing grossly normal, pharynx normal Neck: supple, no adenopathy, thyroid normal, no JVD, no carotid bruits, trachea midline Respiratory/Chest: chest non-tender, normal breath sounds, no respiratory distress, no accessory muscle use, + decreased breath sounds Cardiovascular: regular rate, rhythm, no edema, no gallop, no JVD, no murmur Abdomen: normal bowel sounds, non tender, soft, no organomegaly, no pulsatile mass Extremities: normal range of motion, non-tender, normal inspection, no pedal edema, no calf tenderness, normal capillary refill, pelvis stable, + swelling (2 -3+) Neurologic/Psychiatric: sort line II-XII nml as tested, no motor/sensory deficits, alert, normal mood/affect, oriented x 3 Skin: normal color, warm/dry, no rash Lymphatic: no adenopathy Laboratory Results Last 24 Hours Test 03/11/18 06:25 White Blood Count 5.31 K/uL Red Blood Count 4.40 M/uL Hemoglobin 14.0 g/dL Hematocrit 43.3 % Mean Corpuscular Volume 98.4 fL Mean Corpuscular Hemoglobin 31.8 pg Mean Corpuscular Hemoglobin Concent 32.3 g/dl RDW Standard Deviation 47.7 fL RDW Coefficient of Variation 13.3 % Platelet Count 156 K/uL Mean Platelet Volume 10.2 fL Prothrombin Time 40.6 SECONDS Prothromb Time International Ratio 4.0 Sodium Level 140 mmol/L Potassium Level 3.8 mmol/L Chloride Level 108 mmol/L Carbon Dioxide Level 26 mmol/L Anion Gap 6.0 mmol/L Blood Urea Nitrogen 16 mg/dl Creatinine 1.33 mg/dl Est Creatinine Clear Calc Drug Dose 43.6 ml/min Estimated GFR () 44.3 Estimated GFR (Non- 38.2 BUN/Creatinine Ratio 12.3 Random Glucose 98 mg/dl Calcium Level 8.3 mg/dl Magnesium Level 1.7 mg/dl Assessment and Plan 78 y/o F who was admitted on 03/09 2018 with acute diarrheal illness and elevated trop, complicated by chronic diastolic HF from severe Acute diarrheal illness: likely viral, stable improving, C. difficile neck CT AP noted for diarrheal findings, continue probiotics as outpt, advance diet as tolerated, DC IV fluid Elevated trop: Has flared and trends down, hx of same, likely supply demand mismatch from illness ECHO 04/2017 with EF 65-70% and severe , will hold on repeat for now given this is likely chronically elevated Abn UA: 2+ blood in the setting of recent tx UTI, CT AP noted possible cystis, which could be related to resolved UTI, Urine cx shows 3 bacteria, likely contamination, no antibiotic needed, Afib: continue metoprolol and digoxin, coumadin for full anticoagulation Hypertherapeutic INR, hold Coumadin today will restart a lower dose of Coumadin after INR better Severe /chronic diastolic heart failure: lasix daily and maintain good rate control of afib. good htn control with cozaar Hypothyroid: continue home meds Hx of [place]: continue aspirin 81mg Full code, coumadin for DVT proph Increase activity and PTOT Continued [facility] stay due to: home environment unsafe for pt Discharge planning: uncertain
[2018-03-11 15:29] VITALS: BP 107/70; PULSE 67; TEMP 36.4; O2SAT 95
[2018-03-11 19:53] VITALS: BP 106/57; PULSE 71; TEMP 36.7; O2SAT 97
[2018-03-11] MEDS: ATORVASTATIN 40 MG TAB PO SCH (20:50)
[2018-03-11] MEDS: DIGOXIN 0.125 MG TAB PO SCH (20:50)
[2018-03-11 23:37] VITALS: BP 103/67; PULSE 71; TEMP 36.5; O2SAT 97
[2018-03-12] VITALS (10 sets, daily range): BP systolic 82–121; BP diastolic 48–85; PULSE 62–84; TEMP 36.5–37.1; O2SAT 93–98
[2018-03-12] MEDS: LACTOBACILLUS ACIDOPHILUS (FLORANEX) TAB PO SCH ×3 (07:49→17:18)
[2018-03-12] MEDS: ASPIRIN 81 MG ECTAB PO SCH (07:50)
[2018-03-12] MEDS: LOSARTAN POTASSIUM 25 MG TAB PO SCH (07:50)
[2018-03-12] MEDS: ESCITALOPRAM OXALATE 20 MG TAB PO SCH (07:50)
[2018-03-12] MEDS: FUROSEMIDE 20 MG TAB PO SCH (07:51)
[2018-03-12] MEDS: CHOLECALCIFEROL 1000 INTER.UNIT TAB PO SCH (07:51)
[2018-03-12] MEDS: METOPROLOL TARTRATE 50 MG TAB PO SCH ×2 (07:55→21:15)
[2018-03-12] MEDS ORDERED: PHYTONADIONE INJ 2.5 MG in SODIUM CHLORIDE 0.9% 50ML 50 ML IV ONE (08:00)
[2018-03-12 08:09] LABS: CALCIUM 7.8 mg/dl (8.5-10.1); CREATININE 1.5 mg/dl (0.60-1.20); POTASSIUM 3.6 mmol/L (3.5-5.1)
--- NOTE | 2018-03-12 09:41 | Clinical Documentation Query ---
MINA Ortiz : CLINICAL VALIDATION QUERY This is for educational purposes at this time. As of April 2018, the patient problem list, as documented in the EMR, will reportedly be required to be maintained in an accurate and thorough manner. This is in order to be compliant with meaningful use, a set of standards designed to ensure EHR's produce better health outcomes. Accordingly, please review documentation as currently maintained in the record and consider updating/correcting as appropriate. Thank you. Current documentation includes the following: Problem List Medical Problems: (1) Acute gastroenteritis Status: Acute (2) Cellulitis Status: Acute (3) Cellulitis Status: Acute (4) Cellulitis Status: Acute (5) Cellulitis of right leg Status: Acute (6) Cellulitis of right thigh Status: Acute (7) CHF (congestive heart failure) Status: Acute (8) Non-ST elevated myocardial infarction (non-STEMI) Status: Acute (9) Sepsis Status: Acute (10) Sepsis Status: Acute Thank You, Balwinder Starr, RN [phone]
[2018-03-12 13:16] LABS: INR 2.6 (0.9-1.1)
--- NOTE | 2018-03-12 15:24 | Progress Note ---
Subjective Date of Service: Mar 12, 2018. Subjective Pt evaluation today including: conversation w/ patient, conversation w/ family , physical exam, chart review, lab review, review of studies, conversation w/ mergers and acquisitions consultant, review of inpatient medication list Continue doing well, no complaint, no nausea vomiting diarrhea, tolerating diet Problem List Medical Problems: (1) Acute gastroenteritis Status: Acute (2) Cellulitis Status: Acute (3) Cellulitis Status: Acute (4) Cellulitis Status: Acute (5) Cellulitis of right leg Status: Acute (6) Cellulitis of right thigh Status: Acute (7) CHF (congestive heart failure) Status: Acute (8) Non-ST elevated myocardial infarction (non-STEMI) Status: Acute (9) Sepsis Status: Acute (10) Sepsis Status: Acute Review of Systems Constitutional: + weakness, + fatigue, No fever, No chills, No sweats, No weight loss, No problem reported Eyes: No worsening of vision, No eye pain, No redness, No discharge, No diplopia ENT: No hearing loss, No unusual epistaxis, No nasal symptoms, No sore throat, No tinnitus, No dental problems, No trouble swallowing Respiratory: No cough, No sputum, No wheezing, No shortness of breath, No dyspnea on exertion, No dyspnea at rest, No hemoptysis Cardiac: No chest pain, No orthopnea, No PND, No edema, No claudication, No palpitations Abdomen: No pain, No nausea, No vomiting, No diarrhea, No constipation Musculoskeletal: No joint pain, No muscle pain, No swelling, No calf pain Female : No dysuria, No urinary frequency, No hematuria, No incontinence, No abnormal vaginal bleeding, No vaginal discharge Neurologic: No memory loss, No paralysis, No weakness, No numbness/tingling, No vertigo, No balance problems Psychiatric: No depression symptoms, No anhedonism, No anxiety, No insomnia, No substance abuse Heme: No abnormal bleeding/bruising, No clotting problems, No swollen lymph nodes, No night sweats Endo: No fatigue, No excessive thirst, No excessive urination Skin: No rash, No itch, No new/changing skin lesions, No color change, No bleeding Objective Vital Signs Date Time Temp Pulse Resp B/P (MAP) Pulse Ox O2 Delivery O2 Flow Rate FiO2 03/12/18 12:07 37.1 82 18 99/48 (65) 98 Room Air 7/30/18 08:28 109/65 (80) 03/12/18 08:00 Room Air 03/12/18 08:00 121/68 (85) 03/12/18 07:26 36.7 70 19 82/52 (62) 97 Room Air 03/12/18 04:00 37.0 62 16 121/75 (90) 96 Room Air 03/11/18 23:37 36.5 71 16 103/67 (79) 97 Room Air 03/11/18 20:50 74 03/11/18 20:00 Room Air 03/11/18 19:53 36.7 71 20 106/57 (73) 97 Room Air 03/11/18 15:29 36.4 67 18 107/70 (82) 95 Room Air Physical Exam General Appearance: WD/WN, no apparent distress, + obese Eyes: normal inspection, PERRL, EOMI, sclerae normal ENT: normal ENT inspection, hearing grossly normal, pharynx normal Neck: supple, no adenopathy, thyroid normal, no JVD, no carotid bruits, trachea midline Respiratory/Chest: chest non-tender, normal breath sounds, no respiratory distress, no accessory muscle use, + decreased breath sounds Cardiovascular: regular rate, rhythm, no edema, no gallop, no JVD, + systolic murmur Abdomen: normal bowel sounds, non tender, soft, no organomegaly, no pulsatile mass, + pertinent finding (Right lower abdomen is dressed for chronic wound) Extremities: normal range of motion, non-tender, normal inspection, no pedal edema, no calf tenderness, normal capillary refill, pelvis stable, + swelling (2 + edema which is not new) 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, no motor/sensory deficits, alert, normal mood/affect, oriented x 3 Skin: normal color, warm/dry, no rash Lymphatic: no adenopathy Laboratory Results Last 24 Hours Test 03/12/18 06:26 03/12/18 12:56 Prothrombin Time 60.6 SECONDS 26.6 SECONDS Prothromb Time International Ratio 6.0 2.6 Sodium Level 141 mmol/L Potassium Level 3.6 mmol/L Chloride Level 110 mmol/L Carbon Dioxide Level 25 mmol/L Anion Gap 5.0 mmol/L Blood Urea Nitrogen 18 mg/dl Creatinine 1.50 mg/dl Est Creatinine Clear Calc Drug Dose 38.7 ml/min Estimated GFR () 38.3 Estimated GFR (Non- 33.0 BUN/Creatinine Ratio 11.7 Random Glucose 81 mg/dl Calcium Level 7.8 mg/dl Magnesium Level 1.6 mg/dl Assessment and Plan 78 y/o F who was admitted on 03/09 2018 with acute diarrheal illness and elevated trop, complicated by chronic diastolic HF from severe Acute diarrheal illness: likely viral, resolved. difficile neg, stool culture unremarkable advance diet as tolerated, DC IV fluid Elevated trop: supply demand mismatch from illness, patient denies chest pain ECHO 04/2017 with EF 65-70% and severe , will hold on repeat for now given this is likely chronically elevated Abn UA: 2+ blood in the setting of recent tx UTI, CT AP noted possible cystis, which could be related to resolved UTI, Urine cx shows 3 bacteria, likely contamination, no antibiotic needed, Afib: continue metoprolol and digoxin, coumadin for full anticoagulation Hypertherapeutic INR, Coumadin was decreased 2 days ago , and yesterday was continue on hold, however INR was up to 6 today No sign of active bleeding, gave 2.5 mg of vitamin K today tomorrow morning lab ordered Severe /chronic diastolic heart failure: Stable Hypothyroid: continue home meds Hx of [place]: continue aspirin 81mg Full code, coumadin for DVT proph Increase activity and PT OT feel patient" return home with home health care, PT OT at home, I recommend about continue wound care at home too called pt 's family, message left to call me back Continued [facility] stay due to: home environment unsafe for pt Discharge planning: home with home health
[2018-03-12] MEDS: DIGOXIN 0.125 MG TAB PO SCH (21:14)
[2018-03-12] MEDS: ATORVASTATIN 40 MG TAB PO SCH (21:15)
[2018-03-13 05:46] LABS: HEMATOCRIT 40.1 % (37-47); HEMOGLOBIN 13.2 g/dL (12.0-16.0); MEAN CELL VOLUME 96.4 fL (80-100); MEAN CORPUSCULAR HEMOGLOBIN 31.7 pg (25-34); MEAN CORPUSCULAR HGB CONC 32.9 g/dl (32-36); PLATELET COUNT 137 K/uL (130-400); RED CELL DISTRIBUTION WIDTH CV 13.2 % (11.5-14.5); RED CELL DISTRIBUTION WIDTH SD 46.1 fL (36.4-46.3); WHITE BLOOD COUNT 5.33 K/uL (4.8-10.8)
[2018-03-13 05:53] LABS: INR 1.4 (0.9-1.1)
[2018-03-13 06:24] LABS: CALCIUM 8.1 mg/dl (8.5-10.1); CREATININE 1.27 mg/dl (0.60-1.20); POTASSIUM 3.9 mmol/L (3.5-5.1)
[2018-03-13 07:05] VITALS: BP 107/68; PULSE 60; TEMP 36.4; O2SAT 97
[2018-03-13] MEDS: LOSARTAN POTASSIUM 25 MG TAB PO SCH (08:02)
[2018-03-13] MEDS: CHOLECALCIFEROL 1000 INTER.UNIT TAB PO SCH (08:03)
[2018-03-13] MEDS: METOPROLOL TARTRATE 50 MG TAB PO SCH (08:03)
[2018-03-13] MEDS: LACTOBACILLUS ACIDOPHILUS (FLORANEX) TAB PO SCH ×2 (08:03→11:36)
[2018-03-13] MEDS: ASPIRIN 81 MG ECTAB PO SCH (08:03)
[2018-03-13] MEDS: ESCITALOPRAM OXALATE 20 MG TAB PO SCH (08:03)
[2018-03-13] MEDS: FUROSEMIDE 20 MG TAB PO SCH (08:03)
[2018-03-13] MEDS ORDERED: MAGNESIUM SULFATE 1GM / D5W 100 ML IV STA (08:36)
[2018-03-13] MEDS ORDERED: LSX20 PO (12:39)
[2018-03-13] MEDS ORDERED: LCTX PO (12:39)
[2018-03-13] MEDS ORDERED: CMD2 PO (12:39)
[2018-03-13] MEDS ORDERED: MGNO400 PO (12:39)
--- NOTE | 2018-03-13 12:39 | Discharge Instructions ---
Discharge Instructions Date of Service Mar 13, 2018. Admission Reason for Admission: Acute Gastroenteritis, Elevated Troponin Discharge Discharge Diagnosis / Problem: Acute virus diarrheal Discharge Goals Goal(s): Decrease discomfort, Improve function, Increase independence, Improve disease control, Improve nutritional status, Learn about illness, Diagnostic testing, Therapeutic intervention, Prevent Disease Progression, Specific goals Activity Recommendations Activity Limitations: resume your previous activity . Instructions / Follow-Up Instructions / Follow-Up you have Acute diarrheal illness: likely viral, resolved. you have Afib: continue metoprolol and digoxin, you have hypertherapeutic INR, Coumadin was decreased 2 mg po daily you need to have BMP, mag, PT/INR checked in 2 days, reported to pcp to adjust the dose of medicine - you need to follow up with your primary care physician in 1 week, you need to continue wound care at home for abdominal wound - take medication as instructed, never overdose or any misuse, or take with alcohol, because misuse of medicine may cause organ damage or , call me , or your primary care physician if have questions of discharge medicaitons. - call your primary care physician, or go to local emergency room if has any fever/chill, chest pain, shortness of breathing, nausea/vomiting/abdominal pain , facial droop/slurry speech/local weakness, or if has any questions. - fall precaution - diet as instructed Current Hospital Diet Patient's current hospital diet: Low Sodium Diet (2gm Na) Discharge Diet Recommended Diet: AHA Diet (Heart Healthy) Pending Studies Studies pending at discharge: no Laboratory Results Lipid Panel Test 03/10/18 07:36 Range/Units Triglycerides Level 71 0-150 mg/dl Cholesterol Level 112 0-200 mg/dl HDL Cholesterol 40 mg/dl Cholesterol/HDL Ratio 2.8 LDL Cholesterol, Calculated 58 mg/dl Medical Emergencies . Who to Call and When: Medical Emergencies: If at any time you feel your situation is an emergency, please call 911 immediately. . Non-Emergent Contact Non-Emergency issues call your: Primary Care Provider . . "Provider Documentation" section prepared by Jose Eduardo Pepe. .
--- NOTE | 2018-03-13 13:02 | Discharge Summary ---
Discharge Summary Date of Service Mar 13, 2018. Discharge Summary Admission Date: Mar 09, 2018 at 16:00 Discharge Date: Mar 13, 2018 Discharge Disposition: Home with services Principal Diagnosis: Acute virus diarrhea Problems/Secondary Diagnoses: Elevated trop: Afib: continue metoprolol and digoxin, coumadin for full anticoagulation Hypertherapeutic INR, Procedures: no Consultations: No Medication Reconciliation New Medications: Furosemide (Furosemide) 20 Mg Tab 20 MG PO QAM for 30 Days, TAB Lactobacillus Acidophilus (Floranex) 1 Tab Tab 4 TAB PO TIDM for 7 Days, TAB Magnesium Oxide (Magnesium-Oxide) 400 Mg Tab 400 MG PO BID for 7 Days, TAB Warfarin Sod (Coumadin) 2 Mg Tab 2 MG PO DAILY@1600 for 30 Days, TAB Continued Medications: Aspirin (Aspirin Adult Low Dose) 81 Mg Tab 81 MG PO DAILY Atorvastatin (Lipitor) 40 Mg Tab 40 MG PO HS Cholecalciferol (Vitamin D 1000 Unit) 1,000 Unit Cap 1000 INTER.UNIT PO DAILY, CAP Digoxin (Digoxin) 0.25 Mg Tab 0.125 MG PO DAILY Escitalopram Oxalate (Escitalopram Oxalate) 20 Mg Tab 20 MG PO DAILY Lorazepam (Ativan) 0.5 Mg Tab 0.5 MG PO BID PRN for Anxiety/Agitation, TAB Losartan Potassium (Cozaar) 25 Mg Tab 25 MG PO DAILY, TAB Metoprolol Tartrate (Lopressor) (Lopressor) 50 Mg Tab 50 MG PO BID, #60 TAB Discontinued Medications: Furosemide (Lasix) 40 Mg Tab 40 MG PO QAM Warfarin Sod (Coumadin) 4 Mg Tab 4 MG PO DAILY Discharge Exam Out of bed to chair, no diarrhea, feeling okay, no complaint Review of Systems: Constitutional: + weakness, + fatigue, No fever, No chills, No sweats, No weight loss, No problem reported Eyes: No worsening of vision, No eye pain, No redness, No discharge, No diplopia, No problem reported ENT: No hearing loss, No unusual epistaxis, No nasal symptoms, No sore throat, No tinnitus, No dental problems, No trouble swallowing, No problem reported Respiratory: No cough, No sputum, No wheezing, No shortness of breath, No dyspnea on exertion, No dyspnea at rest, No hemoptysis, No problem reported Cardiovascular: No chest pain, No orthopnea, No PND, No edema, No claudication, No palpitations, No problem reported Abdomen: No pain, No nausea, No vomiting, No diarrhea, No constipation, No GI bleeding, No problem reported Musculoskeletal: No joint pain, No muscle pain, No swelling, No calf pain, No problem reported Genitourinary - Female: No dysuria, No urinary frequency, No urinary urgency , No urinary incontinence, No urinary retention, No hematuria, No dysmenorrhea, No menorrhagia, No metrorrhagia, No rash, No vaginal bleeding, No vaginal discharge, No vaginal itching, No vulvodynia, No , No problem reported Neurologic: No memory loss, No paralysis, No weakness, No numbness/tingling , No vertigo, No balance problems, No problem reported Psychiatric: No depression symptoms, No anhedonism, No anxiety, No insomnia , No substance abuse, No problem reported Endocrine: No fatigue, No excessive thirst, No excessive urination, No problem reported Hematologic / Lymphatic: No abnormal bleeding/bruising, No clotting problems , No swollen lymph nodes, No night sweats, No problem reported Integumentary: + problem reported (Abdominal chronic wounds in dressing,), No rash, No itch, No new/changing skin lesions, No color change, No bleeding Physical Exam: General Appearance: WD/WN, + obese Eyes: normal inspection, PERRL ENT: normal ENT inspection, hearing grossly normal, TMs normal Neck: supple, no adenopathy, thyroid normal Respiratory/Chest: chest non-tender, normal breath sounds, no respiratory distress, no accessory muscle use, + decreased breath sounds Cardiovascular: regular rate, rhythm, no edema, no JVD, + systolic murmur Abdomen / GI: normal bowel sounds, non tender, soft, no organomegaly Extremities: normal inspection, no calf tenderness, normal capillary refill , no pedal edema, normal range of motion 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 difficile neg, stool culture unremarkable DC IV fluid, tolerated diet well Elevated trop: supply demand mismatch from illness, patient denies chest pain ECHO 04/2017 with EF 65-70% and severe , will hold on repeat for now given this is likely chronically elevated Acute kidney injury, BUN creatinine level is improving, resume Lasix at lower dose at 20 mg p.o. daily, has ordered lab to check a BMP back in 2 days and report the results to PCP Hypomagnesemia, replaced, and the oral mag oxide 7 days to home Abn UA: 2+ blood in the setting of recent tx UTI, CT AP noted possible cystis, which could be related to resolved UTI, Urine cx shows 3 bacteria, likely contamination, no antibiotic needed, Afib: Rate controlled, continue metoprolol and digoxin, coumadin for anticoagulation Hypertherapeutic INR yesterday, no sign of active bleeding, gave 2.5 mg of vitamin K yesterday, today's INR is 1.4, will restart Coumadin at 2 mg p.o. daily, has ordered lab to check PT/INR in 2 days, report to PCP to adjust the Coumadin dose Severe /chronic diastolic heart failure: Stable Hypothyroid: continue home meds Hx of [place]: continue aspirin 81mg Full code, coumadin for DVT proph Increase activity and PT OT feel patient" return home with home health care, PT OT at home, I recommend about continue wound care at home too called pt 's family, message left to call me back Instructions / Follow-Up you have Acute diarrheal illness: likely viral, resolved. you have Afib: continue metoprolol and digoxin, you have hypertherapeutic INR, Coumadin was decreased 2 mg po daily you need to have BMP, mag, PT/INR checked in 2 days, reported to pcp to adjust the dose of medicine - you need to follow up with your primary care physician in 1 week, you need to continue wound care at home for abdominal wound - take medication as instructed, never overdose or any misuse, or take with alcohol, because misuse of medicine may cause organ damage or , call me , or your primary care physician if have questions of discharge medicaitons. - call your primary care physician, or go to local emergency room if has any fever/chill, chest pain, shortness of breathing, nausea/vomiting/abdominal pain , facial droop/slurry speech/local weakness, or if has any questions. - fall precaution - diet as instructed Total Time Spent: Greater than 30 minutes This includes examination of the patient, discharge planning, medication reconciliation, and communication with other providers. Discharge Instructions Please refer to the electronic Patient Visit Report (Discharge Instructions) for additional information. Additional Copies To Jeremie Parmar M.D.
[2018-03-13 13:17] VITALS: BP 107/68; PULSE 60; TEMP 36.4; O2SAT 97
[2018-03-13] MEDS ORDERED: WARFARIN SOD 2 MG TAB PO SCH (16:00)
[2018-03-13] MEDS ORDERED: MAGNESIUM OXIDE 400 MG TAB PO SCH (20:00)
== END 2018-03-13 13:45 | disposition home health service (06) | DRG 392 ==
LOC: C.EDB 11:47 → C.2T 16:00 → ENRESERV 17:00 → CANRESERV 18:06 → ENRESERV 18:06 → C.MS4W 03-12 17:35
PROVIDERS: ADMIT Family Medicine; ATTEND Hospitalist
DX: A08.4 Viral intestinal infection, unspecified (principal); N17.9 Acute kidney failure, unspecified; I50.32 Chronic diastolic (congestive) heart failure; Z68.41 Body mass index [BMI] 40.0-44.9, adult; R79.1 Abnormal coagulation profile; I48.91 Unspecified atrial fibrillation; R78.89 Finding of other specified substances, not normally found in blood; R82.90 Unspecified abnormal findings in urine; I35.0 Nonrheumatic aortic (valve) stenosis; I11.0 Hypertensive heart disease with heart failure; E78.5 Hyperlipidemia, unspecified; I25.2 Old myocardial infarction; E03.9 Hypothyroidism, unspecified; E66.3 Overweight; Z79.899 Other long term (current) drug therapy; Z79.82 Long term (current) use of aspirin; Z79.01 Long term (current) use of anticoagulants; Z87.440 Personal history of urinary (tract) infections; Z88.1 Allergy status to other antibiotic agents; Z82.49 Family history of ischemic heart disease and other diseases of the circulatory system; Z83.3 Family history of diabetes mellitus; Z82.3 Family history of stroke

== ENCOUNTER → 2018-03-22 | Outpatient (CLI) | payer OTHER ==
[~2018-03-22] MED LIST changes: +CMD2 PO; -CMD4 PO; +LCTX PO; +LORA-741 PO; +LSX20 PO; +MGNO400 PO
[2018-03-22 18:20] LABS: BLOOD UREA NITROGEN 17 mg/dl (7-18); CALCIUM 8.3 mg/dl (8.5-10.1); CARBON DIOXIDE 24 mmol/L (21-32); CREATININE 1.11 mg/dl (0.60-1.20); GLUCOSE 89 mg/dl (70-99); POTASSIUM 4.1 mmol/L (3.5-5.1); SODIUM 139 mmol/L (136-145)
== END | disposition home or self-care (01) ==
LOC: C.LABMFLN 12:24
PROVIDERS: ATTEND Family Medicine
DX: I48.91 Unspecified atrial fibrillation (principal); I10 Essential (primary) hypertension; I35.0 Nonrheumatic aortic (valve) stenosis